=== PATIENT | male | born 1955 | race Caucasian/White ===

== ENCOUNTER → 2021-10-10 10:49 | Outpatient (BNVA) | payer MEDICARE, SELFPAY | PROVIDERS: PCP Nurse Practitioner Family; Visit Provider Nurse Practitioner Family | DX: E03.9 Hypothyroidism, unspecified (principal); E11.9 Type 2 diabetes mellitus without complications; E78.5 Hyperlipidemia, unspecified; I10 Essential (primary) hypertension | CPT/HCPCS: 80053; 80061; 83036; 84443 ==

== ENCOUNTER → 2022-03-20 08:18 | Outpatient (BNVA) | payer MEDICARE, MEDICAID, SELFPAY | PROVIDERS: PCP Nurse Practitioner Family; Visit Provider Nurse Practitioner Family | DX: I10 Essential (primary) hypertension (principal); E78.5 Hyperlipidemia, unspecified; E11.9 Type 2 diabetes mellitus without complications; E03.9 Hypothyroidism, unspecified | CPT/HCPCS: 80053; 80061; 83036; 83721; 84443 ==

== ENCOUNTER → 2022-06-26 09:26 | Outpatient (BNVA) | payer MEDICARE, SELFPAY | PROVIDERS: PCP Nurse Practitioner Family; Visit Provider Nurse Practitioner Family | DX: I10 Essential (primary) hypertension (principal); Z79.899 Other long term (current) drug therapy; E78.5 Hyperlipidemia, unspecified | CPT/HCPCS: 82977; 83615; 84450; 84460; 84478 ==

== ENCOUNTER → 2023-01-01 11:26 | Outpatient (BNVA) | payer MEDICARE, MEDICAID, SELFPAY | PROVIDERS: PCP Nurse Practitioner Family; Visit Provider Nurse Practitioner Family | DX: I10 Essential (primary) hypertension (principal); E11.9 Type 2 diabetes mellitus without complications; R63.5 Abnormal weight gain | CPT/HCPCS: 80053; 80061; 83036; 83880; 84443 ==

== ENCOUNTER → 2023-05-08 10:29 | Outpatient (BNVA) | payer MEDICARE, MEDICAID, SELFPAY | PROVIDERS: PCP Nurse Practitioner Family; Visit Provider Nurse Practitioner Family | DX: I10 Essential (primary) hypertension (principal); E78.5 Hyperlipidemia, unspecified; E03.9 Hypothyroidism, unspecified; E11.9 Type 2 diabetes mellitus without complications; J44.9 Chronic obstructive pulmonary disease, unspecified | CPT/HCPCS: 80053; 80061; 83036; 84443 ==

== ENCOUNTER → 2023-09-25 09:06 | Outpatient (BNVA) | payer MEDICARE, MEDICAID, SELFPAY | PROVIDERS: PCP Nurse Practitioner Family; Visit Provider Nurse Practitioner Family | DX: E03.9 Hypothyroidism, unspecified (principal); I10 Essential (primary) hypertension; E11.9 Type 2 diabetes mellitus without complications | CPT/HCPCS: 80053; 80061; 83036; 84443 ==

== ENCOUNTER → 2024-03-02 11:19 | Outpatient (BNVA) | payer MEDICARE, MEDICAID, SELFPAY | PROVIDERS: PCP Nurse Practitioner Family; Visit Provider Nurse Practitioner Family | DX: I10 Essential (primary) hypertension (principal); Z79.4 Long term (current) use of insulin; E11.9 Type 2 diabetes mellitus without complications | CPT/HCPCS: 80053; 80061; 83036; 84443 ==

== ENCOUNTER → 2024-07-27 11:18 | Outpatient (BNVA) | payer MEDICARE, MEDICAID, SELFPAY | PROVIDERS: PCP Nurse Practitioner Family; Visit Provider Nurse Practitioner Family | DX: E11.9 Type 2 diabetes mellitus without complications (principal); Z79.4 Long term (current) use of insulin | CPT/HCPCS: 80053; 80061; 83036; 85025 ==

== ENCOUNTER → 2024-10-01 09:51 | Outpatient (BNVA) | payer MEDICARE, MEDICAID, SELFPAY | PROVIDERS: PCP Nurse Practitioner Family; Visit Provider Nurse Practitioner Family | DX: E03.9 Hypothyroidism, unspecified (principal); Z79.899 Other long term (current) drug therapy | CPT/HCPCS: 80053; 80061; 84443 ==

== ENCOUNTER → 2024-10-13 10:01 | Outpatient (BNVA) | payer MEDICARE, MEDICAID, SELFPAY | PROVIDERS: PCP Nurse Practitioner Family; Visit Provider Nurse Practitioner Family | DX: E11.9 Type 2 diabetes mellitus without complications (principal) | CPT/HCPCS: 83036 ==

== ENCOUNTER → 2024-11-30 09:29 | Outpatient (BNVA) | payer MEDICARE, MEDICAID, SELFPAY | PROVIDERS: PCP Nurse Practitioner Family; Visit Provider Nurse Practitioner Family | DX: Z79.899 Other long term (current) drug therapy (principal) | CPT/HCPCS: 80053 ==

== ENCOUNTER → 2024-12-31 07:57 | Outpatient (BNVA) | payer MEDICARE, MEDICAID, SELFPAY | PROVIDERS: PCP Nurse Practitioner Family; Visit Provider Nurse Practitioner Family | DX: I10 Essential (primary) hypertension (principal) | CPT/HCPCS: 80053 ==

== ENCOUNTER → 2025-03-18 08:02 | Outpatient (BNVA) | payer MEDICARE, MEDICAID, SELFPAY | PROVIDERS: PCP Nurse Practitioner Family; Visit Provider Nurse Practitioner Family | DX: N28.9 Disorder of kidney and ureter, unspecified (principal) | CPT/HCPCS: 80053 ==

== ENCOUNTER → 2025-03-23 09:14 | Outpatient (BNVA) | payer MEDICARE, MEDICAID, SELFPAY | PROVIDERS: PCP Nurse Practitioner Family; Visit Provider Nurse Practitioner Family | DX: Z79.899 Other long term (current) drug therapy (principal) | CPT/HCPCS: 83036 ==

== ENCOUNTER 2025-05-16 01:17 | Inpatient (IN) | payer MEDICARE, MEDICAID, SELFPAY ==
--- OUTSIDE RECORDS SUMMARY | 2025-05-15 01:12 | XMS_ITS | Encounter Summary ---
Author Organization [employer] Address [address] [place] [address] Care Team Providers Care Medical Insurance Claims Specialist Name Role Phone Unavailable Primary Care Provider Unavailabl e Reason for Referral * Respiratory (Routine) - Pending Review Specialty Diagnoses / Procedures Referred By Trey t Referred To Contact Diagnoses Chronic obstructive pulmonary disease with acute exacerbation (CMS/HCC) Procedures PULSE OXIMETRY, WITH EXERCISE UT PULMONARY STRESS TESTING Lamar Israel MD [address] [place] [phone] Phone: tel: fax: Referral ID Status Reason Start Date Expiration Date V isits Requested Visits Authorized [id number] Pending Review 05/15/2025 06/15/2026 1 1 Reason for Visit * Reason Comments Shortness of Breath Patient has history of COPD. States he has had 3 episodes this evening lasting a minute or two of feeling like he can't breath. When he has an episode, he loses control of his bladder and urinates on himself. Patient states he can usually feel it coming on and uses his inhaler. Patient also states he loses his motor skills but is able to safely get to the ground. Encounter Details Date Type Department Care Team (Late st Contact Info) Description 05/15/2025 1:12 AM CDT - 05/15/2025 9:23 AM CDT Emergency [facility] Emergency Medicine [address] [id number] Killian Cabezas MD [address] [place] [address] [place] [phone] Lamar Israel MD [address] [phone] Chronic obstructive pulmonary disease with acute exacerbation (CMS/HCC) (Primary Dx); Hyperkalemia; COLLEEN (acute kidney injury) Discharge Disposition: Home or Self Care Social History Tobacco Use Types Packs/Day Years Used Date Smoking Tobacco: Every Day Cigarettes 1 50 Smokeless Tobacco: Never Alcohol Use Standard Drinks/Week Comments No 0 (1 standard drink = 0.6 oz pur e alcohol) Food Insecurity Answer Date Recorded Do you find you are eating l ess than you should because you can t pay for food? No 05/15/2025 Transportation Needs Answer Date Record ed Have you gone without health care because you didn t have a way to get there? Or worry about transportation for future doctor visits, corn picker medication, etc.? No 2024 Housing Stability Answer Date Recorded Do you worry you won t have a steady place to sleep or struggle to pay rent or mortgage? No 05/15/2025 Utility Needs Answer Date Recorded Do you have difficulty payin g for utility costs (electric, water or gas bills)? No 05/15/2025 Medication Needs Answer Date Recorded Have you skipped taking medi cation due to cost or worry you can t afford new medications? No 05/15/2025 Feeling Safe Answer Date Recorded Are you in a relationship wi th someone who hurts you emotionally and/or physically? No 05/15/2025 Sex and Gender Information Value Date Recorded Sex Assigned at Not on file Legal Sex Male 1:41 AM [employer] Gender Identity Not on file Sexual Orientation Not on file documented as of this encounter Last Filed Vital Signs Vital Sign Reading Time Taken Comments Blood Pressure 112/65 05/15/2025 9:15 AM CDT Pulse 84 05/15/2025 9:15 AM CDT Temperature 36.6 C (97.9 F) 05/15/2025 1:24 AM CDT Respiratory Rate 20 05/15/2025 9:15 AM CDT Oxygen Saturation 99% 05/15/2025 9:15 AM CDT Inhaled Oxygen Concentration - - Weight 74.8 kg (165 lb) 05/15/2025 1:24 AM CDT Height 167.6 cm (5' 6 ) 05/15/2025 1:24 AM CDT Body Mass Index 26.63 05/15/2025 1:24 AM CDT documented in this encounter Discharge Instructions * Discharge Instructions* Lamar Israel MD - 05/15/2025 2:23 AM CDT Please hold off on taking the Lisinopril for the next 2-3 days, as long as your blood pressure is staying within normal limits. Please see your primary doctor to determine if you need to switch lisinopril to an alternative or continue taking the medication and monitor closely. Please also discuss about rechecking your potassium and kidney function. Your kidney function is showing that you might have mild dehydration and you just need to drink a little bit more fluids, however try to for now avoid anything with substantial amount of potassium init, and water would probably be the best. There is also a prescription of prednisone taper to make sure that your COPD is having improvement. The prescription for nebulizer machine has been provided and the capsules for the treatment have also been ordered to the pharmacy as well. If you notice that there is any worsening in your symptoms, please return to the emergency department right away. The order for the walk test to make sure that your oxygen does not decrease significantly, and you do not require supplemental oxygen, they will reach out to you to schedule an appointment. The walk test is very fast approximately 8 minutes and afterward the result will be sent to your primary doctor. * Attachments The following attachments cannot be sent through Care Everywhere. * COPD (Guamanian) * Prednisone (Guamanian) * Albuterol and Ipratropium Oral Inhalation (Guamanian) * COPD Exacerbation Plan ([place]ian) * Hyperkalemia ([place]amanian) * Nebulizers: General Info (Guamanian) * Acute Kidney Injury ([place]amanian) documented in this encounter Medications at Time of Discharge predniSONE (DELTASONE) 5 mg tablet 50 mg x 2 days 40 mg x 2 days 30 mg x 2 days 20 mg x 2 days 10 mg x 2 days 5 mg x 2 days 62 Tablet 05/15/2025 ipratropium-albute roL (DUONEB) 0.5 mg-3 mg(2.5 mg base)/3 mL Solution for Nebulization Take 3 mL by inhalation every 6 hours as needed for Shortness of Breath. 120 Each 05/15/2025 nebulizer Length of need 99 months Nebulizer with compressor, Kit: Permanent Nebulizer Kit, 1 per 6 months, filters , areosol mask: Yes. Name of Medication: Duoneb ICD10: J44.9 1 Each 05/15/2025 albuterol sulfate HFA 90 mcg/actuation aerosol inhaler Take 2 Puffs by inhalation every 6 hours as needed for Wheezing or Shortness of Breath. 8.5 Gram 11/11/2024 atenoloL (TENORMIN) 25 mg tablet Take 25 mg by mouth daily. aspirin (ECOTRIN EC) 81 mg Tablet, Delayed Release (E.C.) Take 81 mg by mouth daily. atenoloL 50 mg tablet Take 50 mg by mouth daily. 25 in morning and 50 at night levothyroxine sodium (LEVOTHYROXINE ORAL) Take by mouth. metFORMIN 500 mg tablet Take 500 mg by mouth 2 times daily with meals. rosuvastatin 20 mg tablet Take 20 mg by mouth daily. lisinopriL 20 mg tablet Take 20 mg by mouth daily. omega-3 fatty acids-fish oil 300 mg-1,000 mg capsule Take by mouth daily. vit A/C/E ac/ZnOx/cupric oxide (EYE VITAMIN AND MINERALS ORAL) Take by mouth. CYANOCOBALAMIN, VITAMIN B-12, ORAL Take by mouth. documented as of this encounter ED Notes * Sienna Bowen RN - 05/15/2025 8:53 AM CDT Walk test preformed on patient. Patient oxygen saturation stayed above 98% during testing. Patient ambulated with stand by assistance. * Maggie Sandoval RCP - 05/15/2025 6:24 AM CDT SVN: Duoneb 0.5-2.5mg/3ml given and tolerated well. * Maggie Sandoval RCP - 05/15/2025 2:46 AM CDT EKG completed. Results given to Dr. Cabezas and scanned into Epic. * Tiffani De La Rosa RN - 05/15/2025 1:30 AM CDT Martell Rehman is a 69 y.o. male who arrives to the Emergency Department by private car. 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 Chief Complaint Patient presents with Shortness of Breath Patient has history of COPD. States he has had 3 episodes this evening lasting a minute or two of feeling like he can't breath. When he has an episode, he loses control of his bladder and urinates onhimself. Patient states he can usually feel it coming on and uses his inhaler. Patient also states he loses his motor skills but is able to safely get to the ground. Pain is 0/10. VSS, aaox4, OTTO, behavior appropriate to circumstance, no acute distress at this time. Airway patent, self-maintained with even, non-labored respirations. Perfusion within normal limitsfor age. Skin color normal for ethnicity, warm, dry and intact. Instructed patient to remove clothing per policy, ensured patient privacy, gown provided to patient. ID band present. Patient in bed in low position with wheels locked. Patient informed of plan of care. Patient verbalized understanding and in agreement with plan of care, all questions answered. Comfort measures offered. Monitors on and audible. Patient placed on continuous surveillance system monitor, pulse ox and blood pressure monitoring. Call light at bedside. Patient encouraged to call with needs. Willcontinue to monitor. Weapons assessment performed. Education provided regarding facility weapon storage and securement policy. Martell Rehman denied possession of any weapons or firearms at this time * Day, Lamar Tracy MD - 05/15/2025 1:10 AM CDT HISTORY OF PRESENT ILLNESS Martell Rehman, a 69 y.o. male presents to the ED with a Chief Complaint of Shortness of Breath Subjective This patient is a 69-year-old white male who presents to the emergency department with shortness ofbreath. Patient states he has chronic shortness of breath but had a worse episode tonight starting around 9 PM. He does have a history of COPD. States he did use an albuterol metered-dose inhaler andthe symptoms have resolved. States during the episode his muscles became weak and he was incontinent of urine. Patient denies chest pain. No cough. No fever. REVIEW OF SYSTEMS Review of Systems Constitutional: Negative for appetite change, chills, diaphoresis, fatigue and fever. HENT: Negative for congestion, ear pain, postnasal drip, rhinorrhea, sinus pressure and sore throat. Eyes: Negative for pain and visual disturbance. Respiratory: Positive for shortness of breath and wheezing. Negative for cough and chest tightness. Cardiovascular: Negative for chest pain, palpitations and leg swelling. Gastrointestinal: Negative for abdominal distention, abdominal pain, blood in stool, constipation, diarrhea, nausea and vomiting. Genitourinary: Negative for decreased urine volume, difficulty urinating, dysuria, flank pain, frequency, hematuria, testicular pain and urgency. Musculoskeletal: Negative for arthralgias, back pain, joint swelling, myalgias, neck pain and neck stiffness. Skin: Negative for rash. Neurological: Negative for dizziness, seizures, syncope, speech difficulty, weakness, light-headedness, numbness and headaches. Hematological: Negative for adenopathy. Psychiatric/Behavioral: Negative for behavioral problems, confusion, decreased concentration, dysphoric mood, self-injury, sleep disturbance and suicidal ideas. The patient is not nervous/anxious. All other systems reviewed and are negative. PAST MEDICAL HISTORY REVIEWED MEDICAL: Patient has a past medical history of Diabetes mellitus, HTN (hypertension), Hyperlipidemia, Myocardial infarct (2004), and Thyroid disease. SURGICAL: Patient has a past surgical history that includes heart catheterization; ptca; and cataract removal(Bilateral). FAMILY: Patient's family history includes Breast Cancer in his mother; Healthy in his brother; Heart Disease in his father and sister; High Cholesterol in his father; Kidney Disease in his sister; Stroke in his father. SOCIAL: reports that he has been smoking cigarettes. He has a 50 pack-year smoking history. He has never used smokeless tobacco. He reports that he does not drink alcohol and does not use drugs. No history on file. Social History Other Topics Concern Not on file ALLERGIES Penicillin g HOME MEDICATIONS Discharge Medication List as of 05/15/2025 9:22 AM START taking these medications Details predniSONE (DELTASONE) 5 mg tablet 50 mg x 2 days 40 mg x 2 days 30 mg x 2 days 20 mg x 2 days 10 mg x 2 days 5 mg x 2 days, Disp-62 Tablet, R-0, ALEJANDRO ipratropium-albuteroL (DUONEB) 0.5 mg-3 mg(2.5 mg base)/3 mL Solution for Nebulization Take 3 mL byinhalation every 6 hours as needed for Shortness of Breath., Disp-120 Each, R-0 CONTINUE these medications which have CHANGED Details nebulizer Length of need 99 months Nebulizer with compressor, Kit: Permanent Nebulizer Kit, 1 per 6 months, filters , areosol mask: Yes. Name of Medication: Duoneb ICD10: J44.9, Disp-1 Each, R-0 CONTINUE these medications which have NOT CHANGED Details albuterol sulfate HFA 90 mcg/actuation aerosol inhaler Take 2 Puffs by inhalation every 6 hours as needed for Wheezing or Shortness of Breath., Disp- 8.5 Gram, R-0 !! atenoloL (TENORMIN) 25 mg tablet Take 25 mg by mouth daily. aspirin (ECOTRIN EC) 81 mg Tablet, Delayed Release (E.C.) Take 81 mg by mouth daily. !! atenoloL 50 mg tablet Take 50 mg by mouth daily. 25 in morning and 50 at night levothyroxine sodium (LEVOTHYROXINE ORAL) Take by mouth. metFORMIN 500 mg tablet Take 500 mg by mouth 2 times daily with meals. rosuvastatin 20 mg tablet Take 20 mg by mouth daily. lisinopriL 20 mg tablet Take 20 mg by mouth daily.Paused since today. Resumes on Sat05/18/2025. omega-3 fatty acids-fish oil 300 mg-1,000 mg capsule Take by mouth daily. vit A/C/E ac/ZnOx/cupric oxide (EYE VITAMIN AND MINERALS ORAL) Take by mouth. CYANOCOBALAMIN, VITAMIN B-12, ORAL Take by mouth. !! - Potential duplicate medications found. Please discuss with provider. Objective PHYSICAL EXAM INITIAL VS BP: 109/54 (05/15/25123), Heart Rate: 77 bpm (05/15/25123), Resp: 19 (05/15/25123), Pulse: 79(05/15/25 0200), Temp: 97.9 ??F (36.6 ??C) (05/15/25123), Temp src: Oral (05/15/25123), SpO2: 100 % (05/15/25123), Height: 5' 6 (167.6 cm) (05/15/25123), Weight: 74.8 kg (165 lb) (05/15/25123), BMI (Calculated): (!) 26.63 (05/15/25123) No LMP for male patient. Physical Exam Vitals and nursing note reviewed. Constitutional: General: He is not in acute distress. Appearance: Normal appearance. He is not ill-appearing. HENT: Head: Normocephalic and atraumatic. Eyes: Conjunctiva/sclera: Conjunctivae normal. Pupils: Pupils are equal, round, and reactive to light. Cardiovascular: Rate and Rhythm: Normal rate and regular rhythm. Pulmonary: Effort: Pulmonary effort is normal. No respiratory distress. Breath sounds: Normal breath sounds. Abdominal: General: Abdomen is flat. Bowel sounds are normal. Palpations: Abdomen is soft. Tenderness: There is no abdominal tenderness. Musculoskeletal: General: No tenderness. Normal range of motion. Skin: General: Skin is warm and dry. Neurological: General: No focal deficit present. Mental Status: He is alert and oriented to person, place, and time. Psychiatric: Mood and Affect: Mood normal. Behavior: Behavior normal. DIAGNOSTICS LAB: CBC WITH DIFFERENTIAL - Abnormal Result Value WBC 10.3 (*) RBC 4.72 HEMOGLOBIN 13.9 HEMATOCRIT 41.8 MCV 88.6 MCH 29.4 MCHC 33.3 RDW 14.7 (*) RDW-STDEV 47.8 PLATELETS 184 MPV 8.6 (*) NEUTROPHILS 74 (*) LYMPHOCYTES 17 (*) MONOCYTES 7 EOSINOPHILS 2 BASOPHILS 0 IMMATURE GRANULOCYTES 1 NEUTROPHIL ABSOLUTE 7.62 (*) LYMPHOCYTE ABSOLUTE 1.69 MONOCYTE ABSOLUTE 0.72 EOSINOPHIL ABSOLUTE 0.17 BASOPHILS ABSOLUTE 0.01 IMMATURE GRANULOCYTES ABSOLUTE 0.05 BASIC METABOLIC PANEL - Abnormal SODIUM 132 (*) POTASSIUM 6.1 (*) CHLORIDE 96 (*) CO2 22 CALCIUM 9.6 BUN 27 (*) CREATININE 1.59 (*) GLUCOSE 135 (*) GFR 46 ANION GAP 14 POTASSIUM LEVEL - Abnormal POTASSIUM 6.0 (*) BASIC METABOLIC PANEL - Abnormal SODIUM 132 (*) POTASSIUM 4.8 CHLORIDE 99 CO2 18 (*) CALCIUM 9.0 BUN 28 (*) CREATININE 1.31 (*) GLUCOSE 148 (*) GFR 58 ANION GAP 15 POTASSIUM LEVEL - Normal POTASSIUM 5.1 RADIOLOGY: XR CHEST PA OR AP 1 VW Radiologist Impression IMPRESSION: No acute cardiopulmonary abnormality identified. MACRO: None EKG: PROCEDURES Procedures MEDICAL DECISION MAKING AND PLAN OF CARE Medical Decision Making Chest x-ray was normal. CBC normal. BMP revealed a potassium of 6.1, BUN 27 and a creatinine of 1.59. EKG revealed sinus rhythm with normal T waves and a right bundle branch block. Repeated the potassium and it was 6.0. Patient is not on any potassium supplementation. No prior renal insufficiency. He is on lisinopril. Patient was initially given 50 mg of prednisone p.o. for his COPD. For treatment of his hyperkalemia we gave him a 1 L bolus of normal saline, 2 g of calcium gluconate, 1 amp of bicarb and 15 g of Lokelma. Rechecked a potassium 2 hours later and is now 5.1. Patient will need to be observed for some time with repeat potassium before discharge. I would recommend he discontinue the lisinopril. Patient care will be transferred to Dr. Israel at shift change. He is stable. I will also place him on a prednisone burst and taper for his COPD. Assumed care of the patient at 7 AM from the night team. Patient's breathing has improved significantly and there is no more wheezing and he was able to perform a walk test without any desaturation. The saturation remained 98% on room air. The patient was given a taper of prednisone by my colleague earlier. Provided patient with a prescription of nebulizer and DuoNeb. Rechecked BMP showed improvement in the renal function with a GFR of 58 which is close to patient's baseline and potassium of 4.8 which is significant improvement. Advised patient to hold off on lisinopril at least for the next 3 days or so until he is able to see his PCP. Advised to take the lisinopril if the blood pressure starts to climb up. Advised to also avoid anything of significant content of potassium in the meantime. Advised patient to follow-up or return to the ER if there is any worsening in the symptoms. Upon review of history and physical examination, labs and other diagnostic tests, believe that patient is stable for discharge home with self-care and close monitoring of symptoms. Discussed the plan with the patient and the red flag symptoms to return to the emergency department. Explained that follow-up is very important and patient should make an appointment with their primary care doctor within the next 3-5 days. They have voiced understanding and are comfortable with theplan of care. Amount and/or Complexity of Data Reviewed Labs: ordered. Radiology: ordered. ECG/medicine tests: ordered. Risk Prescription drug management. Clinical Scoring & Consults Medications Administered During the ED Stay from 05/15/2025 0110 to 05/15/2025 0951 Date/Time Order Dose Route Action 05/15/2025 0201 CDT predniSONE (DELTASONE) tablet 50 mg 50 mg Oral Given 05/15/2025 0402 CDT sodium chloride 0.9 % bolus solution 1,000 mL 0 mL IV Stopped 05/15/2025 0332 CDT sodium chloride 0.9 % bolus solution 1,000 mL 1,000 mL IV New Bag 05/15/2025 0402 CDT calcium GLUCONATE 2,000 mg in sodium chloride 0.9 % 100 mL IVPB 0 mg IV Stopped 05/15/2025 0332 CDT calcium GLUCONATE 2,000 mg in sodium chloride 0.9 % 100 mL IVPB 2,000 mg IV NewBag 05/15/2025 0328 CDT sodium bicarbonate 8.4% (1 mEq/mL) syringe 50 mEq 50 mEq IV Given 05/15/2025 0340 CDT sodium zirconium cyclosilicate (LOKELMA) oral powder packet 15 Gram 15 Gram Oral Given 05/15/2025 0622 CDT ipratropium-albuteroL (DUONEB) 0.5 mg-3 mg(2.5 mg base)/3 mL inhalation solution 3 mL 3 mL Inhalation Given Discharge Medication List as of 05/15/2025 9:22 AM START taking these medications Details predniSONE (DELTASONE) 5 mg tablet 50 mg x 2 days 40 mg x 2 days 30 mg x 2 days 20 mg x 2 days 10 mg x 2 days 5 mg x 2 days, Disp-62 Tablet, R-0, ALEJANDRO ipratropium-albuteroL (DUONEB) 0.5 mg-3 mg(2.5 mg base)/3 mL Solution for Nebulization Take 3 mL byinhalation every 6 hours as needed for Shortness of Breath., Disp-120 Each, R-0 CONTINUE these medications which have CHANGED Details nebulizer Length of need 99 months Nebulizer with compressor, Kit: Permanent Nebulizer Kit, 1 per 6 months, filters , areosol mask: Yes. Name of Medication: Duoneb ICD10: J44.9, Disp-1 Each, R-0 CONTINUE these medications which have NOT CHANGED Details albuterol sulfate HFA 90 mcg/actuation aerosol inhaler Take 2 Puffs by inhalation every 6 hours as needed for Wheezing or Shortness of Breath., Disp- 8.5 Gram, R-0 !! atenoloL (TENORMIN) 25 mg tablet Take 25 mg by mouth daily. aspirin (ECOTRIN EC) 81 mg Tablet, Delayed Release (E.C.) Take 81 mg by mouth daily. !! atenoloL 50 mg tablet Take 50 mg by mouth daily. 25 in morning and 50 at night levothyroxine sodium (LEVOTHYROXINE ORAL) Take by mouth. metFORMIN 500 mg tablet Take 500 mg by mouth 2 times daily with meals. rosuvastatin 20 mg tablet Take 20 mg by mouth daily. lisinopriL 20 mg tablet Take 20 mg by mouth daily.Paused since today. Resumes on Sat05/18/2025. omega-3 fatty acids-fish oil 300 mg-1,000 mg capsule Take by mouth daily. vit A/C/E ac/ZnOx/cupric oxide (EYE VITAMIN AND MINERALS ORAL) Take by mouth. CYANOCOBALAMIN, VITAMIN B-12, ORAL Take by mouth. !! - Potential duplicate medications found. Please discuss with provider. LAST VS BP: 112/65 (05/15/25 0915), Heart Rate: 84 bpm (05/15/25 0845), Resp: 20 (05/15/25914), Pulse: 84(05/15/25914), Temp: 97.9 ??F (36.6 ??C) (05/15/25123), Temp src: Oral (05/15/25123), SpO2: 99 % (05/15/25914) CLINICAL IMPRESSION Diagnoses Diagnosis Comment Added By Time Added Chronic obstructive pulmonary disease with acute exacerbation (CMS/HCC) [J44.1] Samm Cabezas MD 05/15/2025 2:22 AM Hyperkalemia [E87.5] Killian Cabezas MD 05/15/2025 6:38 AM COLLEEN (acute kidney injury) [N17.9] Lamar Israel MD 05/15/2025 9:19 AM DISPOSITION, EDUCATION AND MEDICATION RECONCILIATION Medications reconciled. See after visit summary for patient education on discharged patients. ED Disposition ED Disposition Discharge Condition Stable User Killian Cabezas MD Date/Time Sat May 15, 2025 2:22 AM Comment -- ATTESTATION STATEMENTS documented in this encounter Plan of Treatment Scheduled Orders Name Type Priority Associated Diagnoses Orde r Schedule PULSE OXIMETRY, WITH EXERCISE PFT Routine Chronic obstructive pulmonary disease with acute exacerbation (CMS/HCC) 1 Occurrences starting 05/15/2025 until 05/15/2026 documented as of this encounter Procedures Procedure Name Priority Date/Time Associated Diagnosis Comments BASIC METABOLIC PANEL Stat 05/15/2025 8:27 AM CDT POTASSIUM LEVEL Stat 05/15/2025 5:43 AM CDT POTASSIUM LEVEL Stat 05/15/2025 2:46 AM CDT CBC WITH DIFFERENTIAL Stat 05/15/2025 2:08 AM CDT BASIC METABOLIC PANEL Stat 05/15/2025 2:08 AM CDT XR CHEST PA OR AP 1 VW Stat 05/15/2025 1:57 AM CDT documented in this encounter Results * (ABNORMAL) BASIC METABOLIC PANEL (05/15/2025 8:27 AM CDT) SODIUM 132(L) 136 - 145 mmol/L 05/15/2025 8:47 AM [facility] POTASSIUM 4.8 3.5 - 5.1 mmol/L 05/15/2025 8:47 AM [facility] CHLORIDE 99 98 - 107 mmol/L 05/15/2025 8:47 AM [facility] CO2 18(L) 22 - 29 mmol/L 05/15/2025 8:47 AM [facility] CALCIUM 9.0 8.8 - 10.2 mg/dL 05/15/2025 8:47 AM [facility] BUN 28(H) 8 - 23 mg/dL 05/15/2025 8:47 AM [facility] CREATININE 1.31(H) 0.67 - 1.17 mg/dL 05/15/2025 8:47 AM [facility] Comment:The GFR result is no t clinically significant on patients <18 or >70 years of age. GLUCOSE 148(H) 74 - 99 mg/dL 05/15/2025 8:47 AM [facility] GFR 58 mL/min/1.7 3 sq meter 05/15/2025 8:47 AM [facility] Comment:eGFR calculated with 2020 CKD-EPI equation. Vegetarian diet, extremely high or low muscle mass, and may affect results. Cystatin C with Glomerular Filtration Rate is a suitable alternative for these patients. ANION GAP 15 5 - 20 mmol/L 05/15/2025 8:47 AM [facility] Blood Venipuncture / Unknown 05/15/2025 8:27 AM CDT 05/15/2025 8:30 AM CDT us Lamar Israel MD CHEMISTRY ORDERABLES Final Resu lt [facility] CLIA # [id number] [address] [place] [id number] * POTASSIUM LEVEL (05/15/2025 5:43 AM CDT) POTASSIUM 5.1 3.5 - 5.1 mmol/L 05/15/2025 6:03 AM CDT [facility] Blood BLOOD SPECIMEN / Unknown Collection / Unknown 05/15/2025 5:43 AM CDT 05/15/2025 5:51 AM CDT Killian Cabezas MD CHEMISTRY ORDERABLES Fin al Result [facility] CLIA # [id number] [address] [place] [id number] * (ABNORMAL) POTASSIUM LEVEL (05/15/2025 2:46 AM CDT) POTASSIUM 6.0(H) 3.5 - 5.1 mmol/L 05/15/2025 2:57 AM CDT [facility] Blood BLOOD SPECIMEN / Unknown Collection / Unknown 05/15/2025 2:46 AM CDT 05/15/2025 2:49 AM CDT Killian Cabezas MD CHEMISTRY ORDERABLES Fin al Result [facility] CLIA # [id number] [address] [place] [address] * (ABNORMAL) BASIC METABOLIC PANEL (05/15/2025 2:08 AM CDT) SODIUM 132(L) 136 - 145 mmol/L 05/15/2025 2:39 AM CDT [facility] POTASSIUM 6.1(HH) 3.5 - 5.1 mmol/L 05/15/2025 2:39 AM CDT [facility] CHLORIDE 96(L) 98 - 107 mmol/L 05/15/2025 2:39 AM CDT [facility] CO2 22 22 - 29 mmol/L 05/15/2025 2:39 AM [facility] CALCIUM 9.6 8.8 - 10.2 mg/dL 05/15/2025 2:39 AM [facility] BUN 27(H) 8 - 23 mg/dL 05/15/2025 2:39 AM [facility] CREATININE 1.59(H) 0.67 - 1.17 mg/dL 05/15/2025 2:39 AM [facility] Comment:The GFR result is no t clinically significant on patients <18 or >70 years of age. GLUCOSE 135(H) 74 - 99 mg/dL 05/15/2025 2:39 AM [facility] GFR 46 mL/min/1.7 3 sq meter 05/15/2025 2:39 AM [facility] Comment:eGFR calculated with 2020 CKD-EPI equation. Vegetarian diet, extremely high or low muscle mass, and may affect results. Cystatin C with Glomerular Filtration Rate is a suitable alternative for these patients. ANION GAP 14 5 - 20 mmol/L 05/15/2025 2:39 AM [facility] Blood BLOOD SPECIMEN / Unknown Collection / Unknown 05/15/2025 2:08 AM CDT 05/15/2025 2:17 AM CDT us Killian Cabezas MD CHEMISTRY ORDERABLES Fin al Result [facility] CLIA # [id number] [address] [place] [address] * (ABNORMAL) CBC WITH DIFFERENTIAL (05/15/2025 2:08 AM CDT) WBC 10.3(H) 4.2 - 9.1 K/uL 05/15/2025 2:19 AM [facility] RBC 4.72 4.63 - 6.08 M/uL 05/15/2025 2:19 AM [facility] HEMOGLOBIN 13.9 13.7 - 17.5 g/dL 05/15/2025 2:19 AM [facility] HEMATOCRIT 41.8 40.1 - 51.0 % 05/15/2025 2:19 AM [facility] MCV 88.6 79.0 - 92.2 fL 05/15/2025 2:19 AM [facility] MCH 29.4 25.7 - 32.2 pg 05/15/2025 2:19 AM [facility] MCHC 33.3 32.3 - 36.5 g/dL 05/15/2025 2:19 AM [facility] RDW 14.7(H) 11.0 - 14.5 % 05/15/2025 2:19 AM [facility] RDW-STDEV 47.8 36.9 - 56.9 fL 05/15/2025 2:19 AM [facility] PLATELETS 184 130 - 400 K/uL 05/15/2025 2:19 AM [facility] MPV 8.6(L) 10.0 - 14.8 fL 05/15/2025 2:19 AM [facility] NEUTROPHILS 74(H) 34 - 68 % 05/15/2025 2:19 AM [facility] LYMPHOCYTES 17(L) 22 - 53 % 05/15/2025 2:19 AM [facility] MONOCYTES 7 5 - 12 % 05/15/2025 2:19 AM [facility] EOSINOPHILS 2 1 - 7 % 05/15/2025 2:19 AM [facility] BASOPHILS 0 0 - 1 % 05/15/2025 2:19 AM [facility] IMMATURE GRANULOCYTES 1 % 05/15/2025 2:19 AM [facility] NEUTROPHIL ABSOLUTE 7.62(H) 1.78 - 5.38 K/uL 05/15/2025 2:19 AM [facility] LYMPHOCYTE ABSOLUTE 1.69 1.20 - 3.40 K/uL 05/15/2025 2:19 AM [facility] MONOCYTE ABSOLUTE 0.72 0.30 - 0.82 K/uL 05/15/2025 2:19 AM CDT [facility] EOSINOPHIL ABSOLUTE 0.17 0.04 - 0.54 K/uL 05/15/2025 2:19 AM CDT [facility] BASOPHILS ABSOLUTE 0.01 0.01 - 0.08 K/uL 05/15/2025 2:19 AM CDT [facility] IMMATURE GRANULOCYTES ABSOLUTE 0.05 K/uL 05/15/2025 2:19 AM CDT [facility] Blood BLOOD SPECIMEN / Unknown Collection / Unknown 05/15/2025 2:08 AM CDT 05/15/2025 2:17 AM CDT us Killian Cabezas MD HEMATOLOGY ORDERABLES Fi nal Result [facility] CLIA # [id number] [address] [place] [address] * XR CHEST PA OR AP 1 VW (05/15/2025 1:57 AM CDT) Anatomical Region Laterality Modality Chest Computed Radiogr aphy 05/15/2025 1:58 AM CDT Impressions 05/15/2025 2:33 AM CDT IMPRESSION: No acute cardiopulmonary abnormality identified. MACRO: None Narrative 05/15/2025 2:33 AM CDT EXAMINATION: XR CHEST PA OR AP 1 VW CLINICAL HISTORY: ASSOCIATED DIAGNOSIS: Shortness of Breath SOB ORDERING PROVIDER: KILLIAN CABEZAS TECHNAUSTIN NOTE: COMPARISON: Chest radiograph 11/10/2024 FINDINGS: Lines, tubes, and devices: None. Lungs and pleura: No focal pulmonary consolidation, effusion or pneumothorax. Chronically coarsened interstitial markings. Cardiomediastinal silhouette: The cardiac silhouette is normal in size. Atherosclerotic calcifications are present in the thoracic aorta. Musculoskeletal: Unremarkable. Procedure Note Adalgisa Servin MD - 05/15/2025 EXAMINATION: XR CHEST PA OR AP 1 VW CLINICAL HISTORY: ASSOCIATED DIAGNOSIS: Shortness of Breath SOB ORDERING PROVIDER: KILLIAN SINDLINGER TECHNOLOGISTS NOTE: COMPARISON: Chest radiograph 11/10/2024 FINDINGS: Lines, tubes, and devices: None. Lungs and pleura: No focal pulmonary consolidation, effusion or pneumothorax. Chronically coarsened interstitial markings. Cardiomediastinal silhouette: The cardiac silhouette is normal in size. Atherosclerotic calcifications are present in the thoracic aorta. Musculoskeletal: Unremarkable. IMPRESSION: No acute cardiopulmonary abnormality identified. MACRO: None Killian Cabezas MD DIAGNOSTIC IMAGING ORDER ALEJANDRO Final Result documented in this encounter Visit Diagnoses Diagnosis Chronic obstructive pulmonary disease with acute exacerbation (CMS/HCC)- Primary Obstructive chronic bronchitis with exacerbation Chronic obstructive pulmonary disease with acute exacerbation (CMS/HCC) Obstructive chronic bronchitis with exacerbation Hyperkalemia Hyperpotassemia COLLEEN (acute kidney injury) Acute kidney failure, unspecified Hyperkalemia Hyperpotassemia COLLEEN (acute kidney injury) Acute kidney failure, unspecified documented in this encounter Administered Medications Inactive Administered Medications - up to 3 most recent administrations Medication Order MAR Action Action Date Dose Rate Site calcium GLUCONATE 2,000 mg in sodium chloride 0.9 % 100 mL IVPB 2,000 mg, IV, ONE TIME ONLY, 1 dose, On 05/15/25 at 0300, Routine New Bag 05/15/2025 3:32 AM CDT 2,000 mg 270 mL/hr ipratropium-albuteroL (DUONEB) 0.5 mg-3 mg(2.5 mg base)/3 mL inhalation solution 3 mL 3 mL, Inhalation, ONE TIME ONLY RESPIRATORY, 1 dose, On 05/15/25 at 0630, Stat Given 05/15/2025 6:22 AM CDT 3 mL predniSONE (DELTASONE) tablet 50 mg 50 mg, Oral, ONE TIME ONLY, 1 dose, On 05/15/25 at 0200, Routine Given 05/15/2025 2:01 AM CDT 50 mg sodium bicarbonate 8.4% (1 mEq/mL) syringe 50 mEq 50 mEq, IV, ONE TIME ONLY, 1 dose, On 05/15/25 at 0300, Stat Given 05/15/2025 3:28 AM CDT 50 mEq sodium chloride 0.9 % bolus solution 1,000 mL 1,000 mL, IV, ONE TIME ONLY, 1 dose, On 05/15/25 at 0300, at 2,000 mL/hr, Administer over 30 Minutes, Routine New Bag 05/15/2025 3:32 AM CDT 1,000 mL 2000 mL/hr sodium zirconium cyclosilicate (LOKELMA) oral powder packet 15 Gram 15 Gram, Oral, ONE TIME ONLY, 1 dose, On 05/15/25 at 0345, Stat Given 05/15/2025 3:40 AM CDT 15 Grams documented in this encounter Active and Recently Administered Medications Times are shown in CDT. Scheduled Medication Order 05/13/2025 05/14/2025 05/15/2025 calcium GLUCONATE 2,000 mg in sodium chloride 0.9 % 100 mL IVPB (COMPLETED) 2,000 mg, IV, ONE TIME ONLY, 1 dose, On 05/15/25 at 0300, Routine 033 (New Bag - Prov ider: Tiffani De La Rosa RN)040 (Stopped - Provider: Tiffani De La Rosa RN) ipratropium-albuteroL (DUONEB) 0.5 mg-3 mg(2.5 mg base)/3 mL inhalation solution 3 mL (COMPLETED) 3 mL, Inhalation, ONE TIME ONLY RESPIRATORY, 1 dose, On 05/15/25 at 0630, Stat 0622 (Given - Provid er: Maggie Sandoval RCP) predniSONE (DELTASONE) tablet 50 mg (COMPLETED) 50 mg, Oral, ONE TIME ONLY, 1 dose, On 05/15/25 at 0200, Routine 0201 (Given - Provid er: Tiffani De La Rosa RN) sodium bicarbonate 8.4% (1 mEq/mL) syringe 50 mEq (COMPLETED) 50 mEq, IV, ONE TIME ONLY, 1 dose, On 05/15/25 at 0300, Stat 0328 (Given - Provid er: Tiffani De La Rosa RN) sodium chloride 0.9 % bolus solution 1,000 mL (COMPLETED) 1,000 mL, IV, ONE TIME ONLY, 1 dose, On 05/15/25 at 0300, at 2,000 mL/hr, Administer over 30 Minutes, Routine 033 (New Bag - Prov ider: Tiffani De La Rosa RN)401 (Stopped - Provider: Tiffani De La Rosa RN) sodium zirconium cyclosilicate (LOKELMA) oral powder packet 15 Gram (COMPLETED) 15 Gram, Oral, ONE TIME ONLY, 1 dose, On 05/15/25 at 0345, Stat 0340 (Given - Provid er: Tiffani De La Rosa RN) documented in this encounter
[2025-05-16] VITALS (16 sets, daily range): BP systolic 86–145; BP diastolic 46–79; PULSE 76–110; RESP 14–20; TEMP 35.7–36.8; O2SAT 95–98; BMI 26.6; BMI 27.3
--- OUTSIDE RECORDS SUMMARY | 2025-05-16 01:34 | XMS_ITS | Encounter Summary ---
Author Organization [facility] Address [address] [place] [address] Care Team Providers Care Flight Engineer Manager Name Role Phone Unavailable Primary Care Provider Unavailabl e Encounter Details Date Type Department Care Team (Late st Contact Info) Description 01/18/[address] 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 Gender Identity Not on file Sexual Orientation Not on file documented as of this encounter Plan of Treatment Not on file documented as of this encounter Procedures Procedure Name Priority Date/Time Associated Diagnosis Comments CBC WITH DIFFERENTIAL Routine 01/18/2014 9:52 PM CDT Dizziness and giddiness [ICD-9-CM] TSH Routine 01/18/2014 9:52 PM CDT Dizziness and giddiness [ICD-9-CM] CK Routine 01/18/2014 9:52 PM CDT Dizziness and giddiness [ICD-9-CM] LIPID PANEL Routine 01/18/2014 9:52 PM CDT Dizziness and giddiness [ICD-9-CM] COMPREHENSIVE METABOLIC PANEL Routine 01/18/2014 9:52 PM CDT Dizziness and giddiness [ICD-9-CM] documented in this encounter Results * (ABNORMAL) LIPID PANEL (01/18/2014 9:52 PM CDT) CHOLESTEROL 130 130 - 200 mg/dL 01/18/2014 10:58 PM CDT [facility] TRIGLYCERIDE 394(H) 30 - 200 mg/dL 01/18/2014 10:58 PM CDT [facility] HDL 21(L) 35 - 80 mg/dL 01/18/2014 10:58 PM CDT [facility] LDL CALCULATED 30 0 - 100 mg/dL 01/18/2014 10:58 PM CDT [facility] Blood 01/18/2014 9:52 PM CDT 01/18/2014 9:52 PM CDT Narrative [facility] - 01/18/2014 10:58 PM CDT TOTAL CHOLESTEROL mg/dL Desirable <200 Borderline high 200-239 High >=240 TRIGLYCERIDES mg/dL Normal <150 Borderline high 150-199 High 200-499 Very high >=500 HDL CHOLESTEROL mg/dL Low <40 Normal 40-60 Desirable >60 LDL CHOLESTEROL mg/dL Optimal <100 Low risk 100-129 Borderline high 130-159 High 160-189 Very high >=190 Based on AHA/NCEP Guidelines Elver Hanson EQUIPMENT APPLICATION SPECIALIST CHEMISTRY ORDERABLES Final Resu lt Performing Organization Address City/[facility]/ZIP Co de Phone Number [facility] CLIA # [id number] [address] [place] [address] * CK (01/18/2014 9:52 PM CDT) Pathologist [facility] CK 113 26 - 308 U/L 01/18/2014 10:58 PM CDT [facility] Blood 01/18/2014 9:52 PM CDT 01/18/2014 9:52 PM CDT [facility] EQUIPMENT APPLICATION SPECIALIST CHEMISTRY ORDERABLES Final Resu lt Performing Organization Address City/[facility]/ZIP Co de Phone Number [facility] [employer] [facility] CLIA # [id number] [address] [address] * TSH (01/18/2014 9:52 PM CDT) TSH 3.18 0.30 - 4.80 uIU/mL 01/18/2014 10:58 PM CDT [facility] [place] Blood 01/18/2014 9:52 PM CDT 01/18/2014 9:52 PM CDT Elver Hanson NP CHEMISTRY ORDERABLES Final Resu lt [facility] [place] CLIA # [id number] [address] [place] [address] * (ABNORMAL) COMPREHENSIVE METABOLIC PANEL (01/18/2014 9:52 PM CDT) SODIUM 141 136 - 145 mmol/L 01/18/2014 10:58 PM T [facility] [employer] [facility] POTASSIUM 3.5 3.5 - 5.1 mmol/L 01/18/2014 10:58 PM T [facility] [employer] [facility] CHLORIDE 103 98 - 107 mmol/L 01/18/2014 10:58 PM T [facility] CO2 25 21 - 32 mmol/L 01/18/2014 10:58 PM CDT [facility] CALCIUM 9.7 8.5 - 10.1 mg/dL 01/18/2014 10:58 PM T [facility] BUN 12 7 - 18 mg/dL 01/18/2014 10:58 PM T [facility] CREATININE 1.20 0.60 - 1.30 mg/dL 01/18/2014 10:58 PM T [facility] [employer] [facility] GLUCOSE 117(H) 74 - 106 mg/dL 01/18/2014 10:58 PM T [facility] TOTAL PROTEIN 8.9(H) 6.4 - 8.2 g/dL 01/18/2014 10:58 PM T [facility] ALBUMIN 4.0 3.4 - 5.0 g/dL 01/18/2014 10:58 PM CDT [facility] BILIRUBIN TOTAL 0.4 0.2 - 1.0 mg/dL 01/18/2014 10:58 PM CDT [facility] ALKALINE PHOSPHATASE 117 50 - 136 U/L 01/18/2014 10:58 PM CDT [facility] AST 34 15 - 37 U/L 01/18/2014 10:58 PM CDT [facility] ALT 39 30 - 65 U/L 01/18/2014 10:58 PM CDT [facility] GFR >60 >=60 mL/min/1.7 3 sq meter 01/18/2014 10:58 PM CDT [facility] Comment: eGFR has not been validated for use in the elderly (> 70 years of age), women, patients with serious co-morbid conditions, or persons with extremes of body size or muscle mass and should also be interpreted with caution in patients with acute kidney failure, dialysis dependent patients, patients reporting exceptional dietary intake (e.g. vegetarian diet, high protein diets, creatine supplementation), and patients with severe liver disease. Based on National Kidney Disease Education Program If patient is , please refer to the GFR result. GFR, >60 >=60 mL/min/1.7 3 sq meter 01/18/2014 10:58 PM CDT [facility] Blood 01/18/2014 9:52 PM CDT 01/18/2014 9:52 PM CDT Elver Hanson NP CHEMISTRY ORDERABLES Final Resu lt [facility] CLIA # [id number] [address] [place] [address] * (ABNORMAL) CBC WITH DIFFERENTIAL (01/18/2014 9:52 PM CDT) WBC 9.7(H) 4.2 - 9.1 K/uL 01/18/2014 10:34 PM CDT [facility] RBC 4.91 4.63 - 6.08 M/uL 01/18/2014 10:34 PM CDT [facility] HEMOGLOBIN 15.8 13.7 - 17.5 g/dL 01/18/2014 10:34 PM CDT [facility] [place] HEMATOCRIT 45.5 40.1 - 51.0 % 01/18/2014 10:34 PM CDT [facility] [place] MCV 92.7(H) 79.0 - 92.2 fL 01/18/2014 10:34 PM CDT [facility] [place] MCH 32.2 25.7 - 32.2 pg 01/18/2014 10:34 PM CDT [facility] [place] MCHC 34.7 32.3 - 36.5 g/dL 01/18/2014 10:34 PM CDT [facility] [place] RDW 13.8 11.0 - 14.5 % 01/18/2014 10:34 PM CDT [facility] [place] RDW-STDEV 45.1 36.9 - 56.9 fL 01/18/2014 10:34 PM CDT [facility] [place] PLATELETS 218 130 - 400 K/uL 01/18/2014 10:34 PM CDT [facility] [place] MPV 10.2 10.0 - 14.8 fL 01/18/2014 10:34 PM CDT [facility] [place] NEUTROPHILS 63 34 - 68 % 01/18/2014 10:34 PM CDT [facility] [place] LYMPHOCYTES 28 22 - 53 % 01/18/2014 10:34 PM CDT [facility] [place] MONOCYTES 5 5 - 12 % 01/18/2014 10:34 PM CDT [facility] [place] EOSINOPHILS 4 1 - 7 % 01/18/2014 10:34 PM CDT [facility] [place] BASOPHILS 0 0 - 1 % 01/18/2014 10:34 PM CDT [facility] [place] NEUTROPHIL ABSOLUTE 6.09(H) 1.78 - 5.38 K/uL 01/18/2014 10:34 PM CDT [facility] [place] LYMPHOCYTE ABSOLUTE 2.74 1.20 - 3.40 K/uL 01/18/2014 10:34 PM CDT [facility] [place] MONOCYTE ABSOLUTE 0.47 0.30 - 0.82 K/uL 01/18/2014 10:34 PM CDT [facility] [place] EOSINOPHIL ABSOLUTE 0.36 0.04 - 0.54 K/uL 01/18/2014 10:34 PM CDT [facility] [place] BASOPHILS ABSOLUTE 0.03 0.01 - 0.08 K/uL 01/18/2014 10:34 PM CDT [facility] [place] IMMATURE GRANULOCYTES 0 % 01/18/2014 10:34 PM CDT [facility] [place] IMMATURE GRANULOCYTES ABSOLUTE 0.04 K/uL 01/18/2014 10:34 PM CDT [facility] [place] Blood 01/18/2014 9:52 PM CDT 01/18/2014 9:52 PM CDT us Elver Hanson NP HEMATOLOGY ORDERABLES Final Res ult [facility] [place] CLIA # [id number] [address] [place] [address] documented in this encounter Visit Diagnoses Diagnosis Dizziness and giddiness documented in this encounter
--- OUTSIDE RECORDS SUMMARY | 2025-05-16 01:34 | XMS_ITS | Encounter Summary ---
Author Organization [facility] Address [address] [place] [address] Care Team Providers Care Brick Layer Name Role Phone Unavailable Primary Care Provider Unavailabl e Encounter Details Date Type Department Care Team (Latest Contact Info) Description 03/11/2007 Outpatient Historical [facility] [place] [address] [place] [address] Cristy Allen, SECONDARY SPECIAL EDUCATION TEACHER [address] [place] [address] Coronary Atherosclerosis of [place] Coronary Artery (Primary Dx); Old Myocardial Infarct; Other and Unspecified Hyperlipidemia Social History Tobacco Use Types Packs/Day Years Used Date Smoking Tobacco: Never Assessed Sex and Gender Information Value Date Recorded Sex Assigned at Not on file 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
--- OUTSIDE RECORDS SUMMARY | 2025-05-16 01:34 | XMS_ITS | Encounter Summary ---
Author Organization [employer] [facility] Address [address] [place] [address] Care Team Providers Care Patternmaker Pressure Cast Name Role Phone Unavailable Primary Care Provider Unavailabl e Encounter Details Date Type Department Care Team (Late st Contact Info) Description 05/23/2015 Lab Requisition [facility] Laboratory Services [place] [address] [place] [id number] Alex Rubio, DO NO ADDRESS ON FILE Sick Social History Tobacco Use Types Packs/Day Years Used Date Smoking Tobacco: Every Day Cigarettes 1 37 Smokeless Tobacco: Never Alcohol Use Standard Drinks/Week Comments No 0 (1 standard drink = 0.6 oz pur e alcohol) Sex and Gender Information Value Date Recorded Sex Assigned at Not on file 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 Gender Identity Not on file Sexual Orientation Not on file documented as of this encounter Plan of Treatment Not on file documented as of this encounter Procedures Procedure Name Priority Date/Time Associated Diagnosis Comments HEMOGLOBIN A1C Routine 05/23/2015 9:00 PM CDT Sick [ICD-10-CM] LIPID PANEL Routine 05/23/2015 9:00 PM CDT Sick [ICD-10-CM] COMPREHENSIVE METABOLIC PANEL Routine 05/23/2015 9:00 PM CDT Sick [ICD-10-CM] documented in this encounter Results * (ABNORMAL) HEMOGLOBIN A1C (05/23/2015 9:00 PM CDT) HEMOGLOBIN A1C 6.1(H) 4.8 - 5.9 % 05/23/2015 10:42 PM CDT [facility] LABORATORY SERVICES [facility] EST. AVG GLUCOSE, A1C 128 mg/dL 05/23/2015 10:42 PM CDT [employer] [facility] Blood 05/23/2015 9:00 PM CDT 05/23/2015 9:45 PM CDT Alex Rubio DO CHEMISTRY ORDERABLES Final Resu lt [facility] [employer] [facility] CLIA # [id number] [address] [address] * (ABNORMAL) LIPID PANEL (05/23/2015 9:00 PM CDT) [facility] CHOLESTEROL 100 <200 mg/dL 05/23/2015 10:42 PM CDT [facility] [employer] [facility] TRIGLYCERIDE 275(H) <150 mg/dL 05/23/2015 10:42 PM CDT [facility] [employer] [facility] HDL 25(L) 40 - 59 mg/dL 05/23/2015 10:42 PM CDT [facility] [employer] [facility] LDL CALCULATED 20 <100 mg/dL 05/23/2015 10:42 PM CDT [facility] [employer] [facility] NON-HDL CHOLESTEROL 75 <130 mg/dL 05/23/2015 10:42 PM CDT [facility] [employer] [facility] Blood 05/23/2015 9:00 PM CDT 05/23/2015 9:45 PM CDT Narrative [facility] [employer] - [facility] - 05/23/2015 10:42 PM CDT TOTAL CHOLESTEROL mg/dL Desirable <200 Borderline high 200-239 High >=240 TRIGLYCERIDES mg/dL Normal <150 Borderline high 150-199 High 200-499 Very high >=500 HDL CHOLESTEROL mg/dL Low <40 Normal 40-59 Desirable >=60 LDL CHOLESTEROL mg/dL Optimal <100 Low risk 100-129 Borderline high 130-159 High 160-189 Very high >=190 NON HDL CHOLESTEROL mg/dL Optimal <130 Near Optimal 130-159 Borderline High 160-189 High 190-219 Very high >=220 Based on AHA/NCEP Guidelines Alex Rubio DO CHEMISTRY ORDERABLES Final Resu lt [facility] # [id number] [address] [place] [id number] * COMPREHENSIVE METABOLIC PANEL (05/23/2015 9:00 PM CDT) SODIUM 142 136 - 145 mmol/L 05/23/2015 10:42 PM T [facility]ORATORY [facility] POTASSIUM 4.2 3.5 - 5.1 mmol/L 05/23/2015 10:42 PM T [facility] CHLORIDE 104 98 - 107 mmol/L 05/23/2015 10:42 PM T [facility] CO2 23 22 - 29 mmol/L 05/23/2015 10:42 PM T [facility] CALCIUM 9.7 8.8 - 10.2 mg/dL 05/23/2015 10:42 PM [facility]ORATORY [facility] BUN 17 8 - 23 mg/dL 05/23/2015 10:42 PM [facility] CREATININE 0.82 0.67 - 1.17 mg/dL 05/23/2015 10:42 PM [facility] GLUCOSE 106 74 - 106 mg/dL 05/23/2015 10:42 PM [facility] TOTAL PROTEIN 8.4 6.6 - 8.7 g/dL 05/23/2015 10:42 PM [facility]OR[facility]ORY [facility] ALBUMIN 4.8 3.5 - 5.2 g/dL 05/23/2015 10:42 PM [facility]ORATORY [facility] BILIRUBIN TOTAL 0.5 0.0 - 1.2 mg/dL 05/23/2015 10:42 PM [facility] LABORATORY [facility] ALKALINE PHOSPHATASE 79 40 - 129 U/L 05/23/2015 10:42 PM T [facility]ORATORY [facility] AST 26 10 - 50 U/L 05/23/2015 10:42 PM T [facility]ATORY [facility] ALT 22 10 - 50 U/L 05/23/2015 10:42 PM [facility] GFR >60 >=60 mL/min/1.7 3 sq meter 05/23/2015 10:42 PM T [facility]ORATORY [facility] Comment: eGFR has not been validated for [...] GFR, >60 >=60 mL/min/1.7 3 sq meter 05/23/2015 10:42 PM CDT [employer] LABORATORY [employer] [facility] [email or web address] ANION GAP 15 12 - 20 mmol/L 05/23/2015 10:42 PM CDT [employer] [facility] Blood 05/23/2015 9:00 PM CDT 05/23/2015 9:45 PM CDT Alex Rubio DO CHEMISTRY ORDERABLES Final Resu lt [employer] LABORATORY [employer] [facility] CLIA # [id number] [address] [place] [phone] documented in this encounter Visit Diagnoses Diagnosis Sick Other unknown and unspecified cause of morbidity or mortality documented in this encounter
--- OUTSIDE RECORDS SUMMARY | 2025-05-16 01:34 | XMS_ITS | Clinical Summary ---
Author Organization [employer] Address [address] 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 Active rosuvastatin 20 mg tablet Take 20 mg by mouth daily. Active atenoloL 50 mg tablet Take 50 mg by mouth daily. 25 in morning and 50 at night Active lisinopriL 20 mg tablet Take 20 mg by mouth daily. Active levothyroxine sodium (LEVOTHYROXINE ORAL) Take by mouth. Activ e omega-3 fatty acids-fish oil 300 mg-1,000 mg capsule Take by mouth daily. Active vit A/C/E ac/ZnOx/cupric oxide (EYE VITAMIN AND MINERALS ORAL) Take by mouth. Active CYANOCOBALAMIN, VITAMIN B-12, ORAL Take by mouth. Activ e atenoloL (TENORMIN) 25 mg tablet Take 25 mg by mouth daily. Active aspirin (ECOTRIN EC) 81 mg Tablet, Delayed Release (E.C.) Take 81 mg by mouth daily. Active albuterol sulfate HFA 90 mcg/actuation aerosol inhaler Take 2 Puffs by inhalation every 6 hours as needed for Wheezing or Shortness of Breath. 8.5 Gram 11/12/19 25 Active predniSONE (DELTASONE) 5 mg tablet 50 mg x 2 days 40 mg x 2 days 30 mg x 2 days 20 mg x 2 days 10 mg x 2 days 5 mg x 2 days 62 Tablet 05/15/20 25 Active ipratropium-albu teroL (DUONEB) 0.5 mg-3 mg(2.5 mg base)/3 mL Solution for Nebulization Take 3 mL by inhalation every 6 hours as needed for Shortness of Breath. 120 Each 05/15/20 25 025 Active nebulizer Length of need 99 months Nebulizer with compressor, Kit: Permanent Nebulizer Kit, 1 per 6 months, filters , areosol mask: Yes. Name of Medication: Duoneb ICD10: J44.9 1 Each 05/15/20 25 Active nebulizer ICD 10: J44.9 Length of need 99 months Nebulizer with compressor, Kit: Disposable Nebulizer Kit, 2 per month, filters , areosol mask: No. Name of Medication DuoNeb 1 Each 08/15/19 23 025 Discontinu ed(Alterna te therapy prescribed ) Active Problems Problem Noted Date Diagnosed Date Chronic obstructive pulmonar y disease with acute exacerbation 05/15/2025 Hyperkalemia 05/15/2025 COLLEEN (acute kidney injury) 05/15/2025 CAD (coronary artery disease) 07/03/2012 Dyslipidemia 07/03/2012 Old myocardial infarction 07/03/2012 Tobacco use disorder 07/03/2012 Encounters Date Type Department Care Team Description 05/15/2025 1:12 AM CDT - 05/15/2025 9:23 AM CDT Emergency [facility] Emergency Medicine [address] [facility] [address] [place] [address] Killian Cabezas MD Day, Shamuel M, MD Chronic obstructive pulmonary disease with acute exacerbation (CMS/HCC) (Primary Dx); Hyperkalemia; COLLEEN (acute kidney injury) Discharge Disposition: Home or Self Care 05/15/2025 Travel 04/27/2025 External Device Data ST[employer] ABSTRACTION Provider, Abstract from Last 3 Months Family History Medical History Relation Name Comments Healthy Brother Heart Disease Father High Cholesterol Father Stroke Father Breast Cancer Mother Heart Disease Sister Kidney Disease Sister Relation Name Status Comments Brother Alive Father Alive Mother Alive Sister Alive Social History Tobacco Use Types Packs/Day Years Used Date Smoking Tobacco: Every Day Cigarettes 1 50 Smokeless Tobacco: Never Tobacco Cessation:Ready to Q uit: Not Asked; Counseling Given: Not Answered Alcohol Use Standard Drinks/Week Comments No 0 [...] worry about transportation for future doctor visits, seed 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 Gender Identity Not on file Sexual Orientation Not on file Last Filed Vital Signs Vital Sign Reading [...] Mass Index 26.63 05/15/2025 1:24 AM CDT Plan of Treatment Health Maintenance Due Date Last Done Comments DTAP/TDAP/TD VACCINES (1 - Tdap) 1972 PNEUMOCOCCAL VACCINE 50+ YEARS (1 of 2 - PCV) 11/03/18 73 COLORECTAL SCREENING 1998 Colorectal Cancer Screening 1998 FIT-DNA Q 3 years 1998 FIT/FOBT Q 1 year 1998 Flex Sig/CT Colonography Q 5 years 1998 Lung Cancer Screening 11/04/2003 ZOSTER VACCINE (1 of 2) 11/04/2003 RSV VACCINE (60+ or ) (1 - Risk 60-74 years 1-dose series) 2013 Abdominal Aortic Aneurysm (AAA) Screening 2018 INFLUENZA VACCINE (#1) 2025 Procedures Procedure Name Priority Date/Time Associated Diagnosis Comments BASIC METABOLIC PANEL Stat 05/15/2025 8:27 AM CDT POTASSIUM LEVEL Stat 05/15/2025 5:43 AM CDT POTASSIUM LEVEL Stat 05/15/2025 2:46 AM CDT BASIC METABOLIC PANEL Stat 05/15/2025 2:08 AM CDT CBC WITH DIFFERENTIAL Stat 05/15/2025 2:08 AM CDT XR CHEST PA OR AP 1 VW Stat 05/15/2025 1:57 AM CDT from Last 3 Months Results * (ABNORMAL) BASIC METABOLIC PANEL (05/15/2025 8:27 AM CDT) Only the most recent of2 resultswithin the time period is included. SODIUM 132(L) 136 - 145 mmol/L 05/15/2025 8:47 AM [facility] POTASSIUM 4.8 3.5 - 5.1 mmol/L 05/15/2025 8:47 AM [facility] CHLORIDE 99 98 - 107 mmol/L 05/15/2025 8:47 AM [facility] CO2 18(L) 22 - 29 mmol/L 05/15/2025 8:47 AM [facility] CALCIUM 9.0 8.8 - 10.2 mg/dL 05/15/2025 8:47 AM [facility] BUN 28(H) 8 - 23 mg/dL 05/15/2025 8:47 AM [facility] CREATININE 1.31(H) 0.67 - 1.17 mg/dL 05/15/2025 8:47 AM CDT [facility] Comment:The GFR result is no t clinically significant on patients <18 or >70 years of age. GLUCOSE 148(H) 74 - 99 mg/dL 05/15/2025 8:47 AM CDT [facility] GFR 58 mL/min/1.7 3 sq meter 05/15/2025 8:47 AM CDT [facility] Comment:eGFR calculated with 2020 CKD-EPI equation. Vegetarian diet, extremely high or low muscle mass, and may affect results. Cystatin C with Glomerular Filtration Rate is a suitable alternative for these patients. ANION GAP 15 5 - 20 mmol/L 05/15/2025 8:47 AM CDT [facility] Blood Venipuncture / Unknown 05/15/2025 8:27 AM CDT 05/15/2025 8:30 AM CDT us Lamar Israel MD CHEMISTRY ORDERABLES Final Resu lt Performing Organization Address City/[facility]/ZIP Co de Phone Number [facility] CLIA # [id number] [address] [place] [phone] * POTASSIUM LEVEL (05/15/2025 5:43 AM CDT) Only the most recent of2 resultswithin the time period is included. POTASSIUM 5.1 3.5 - 5.1 mmol/L 05/15/2025 6:03 AM CDT [facility] Blood BLOOD SPECIMEN / Unknown Collection / Unknown 05/15/2025 5:43 AM CDT 05/15/2025 5:51 AM CDT us Killian Cabezas MD CHEMISTRY ORDERABLES Fin al Result Performing Organization Address City/[facility]/ZIP Co de Phone Number [facility] CLIA # [id number] [address] [place] [phone] * (ABNORMAL) CBC WITH DIFFERENTIAL (05/15/2025 2:08 AM CDT) WBC 10.3(H) 4.2 - 9.1 K/uL 05/15/2025 2:19 AM [facility] RBC 4.72 4.63 - 6.08 M/uL 05/15/2025 2:19 AM [facility] HEMOGLOBIN 13.9 13.7 - 17.5 g/dL 05/15/2025 2:19 AM [facility] HEMATOCRIT 41.8 40.1 - 51.0 % 05/15/2025 2:19 AM [facility] MCV 88.6 79.0 - 92.2 fL 05/15/2025 2:19 AM [facility] MCH 29.4 25.7 - 32.2 pg 05/15/2025 2:19 AM [facility] MCHC 33.3 32.3 - 36.5 g/dL 05/15/2025 2:19 AM [facility] RDW 14.7(H) 11.0 - 14.5 % 05/15/2025 2:19 AM [facility] RDW-STDEV 47.8 36.9 - 56.9 fL 05/15/2025 2:19 AM [facility] PLATELETS 184 130 - 400 K/uL 05/15/2025 2:19 AM [facility] MPV 8.6(L) 10.0 - 14.8 fL 05/15/2025 2:19 AM [facility] NEUTROPHILS 74(H) 34 - 68 % 05/15/2025 2:19 AM [facility] LYMPHOCYTES 17(L) 22 - 53 % 05/15/2025 2:19 AM [facility] MONOCYTES 7 5 - 12 % 05/15/2025 2:19 AM [facility] EOSINOPHILS 2 1 - 7 % 05/15/2025 2:19 AM [facility] BASOPHILS 0 0 - 1 % 05/15/2025 2:19 AM [facility] IMMATURE GRANULOCYTES 1 % 05/15/2025 2:19 AM [facility] NEUTROPHIL ABSOLUTE 7.62(H) 1.78 - 5.38 K/uL 05/15/2025 2:19 AM CDT [facility] LYMPHOCYTE ABSOLUTE 1.69 1.20 - 3.40 K/uL 05/15/2025 2:19 AM CDT [facility] MONOCYTE ABSOLUTE 0.72 0.30 - 0.82 K/uL 05/15/2025 2:19 AM CDT [facility] EOSINOPHIL ABSOLUTE 0.17 0.04 - 0.54 K/uL 05/15/2025 2:19 AM CDT [facility] BASOPHILS ABSOLUTE 0.01 0.01 - 0.08 K/uL 05/15/2025 2:19 AM CDT [facility] IMMATURE GRANULOCYTES ABSOLUTE 0.05 K/uL 05/15/2025 2:19 AM CDT [facility] Blood BLOOD SPECIMEN / Unknown Collection / Unknown 05/15/2025 2:08 AM CDT 05/15/2025 2:17 AM CDT us Killian Cabezas MD HEMATOLOGY ORDERABLES Fi nal Result [facility] # [id number] [address] [place] [phone] * XR CHEST PA OR AP 1 VW (05/15/2025 1:57 AM CDT) Anatomical Region Laterality Modality Chest Computed Radiogr aphy 05/15/2025 1:58 AM CDT Impressions 05/15/2025 2:33 AM CDT IMPRESSION: No acute cardiopulmonary abnormality identified. MACRO: None Narrative 05/15/2025 2:33 AM CDT EXAMINATION: XR CHEST PA OR AP 1 VW CLINICAL HISTORY: ASSOCIATED DIAGNOSIS: Shortness of Breath SOB ORDERING PROVIDER: KILLIAN CABEZAS TECHNOLOGISTS NOTE: COMPARISON: Chest radiograph 11/10/2024 FINDINGS: [...] of Breath SOB ORDERING PROVIDER: KILLIAN CABEZAS TECHNOLOGISTS NOTE: COMPARISON: Chest radiograph 11/10/2024 FINDINGS: Lines, tubes, and devices: None. Lungs and pleura: No focal pulmonary consolidation, effusion or pneumothorax. Chronically coarsened interstitial markings. Cardiomediastinal silhouette: The cardiac silhouette is normal in size. Atherosclerotic calcifications are present in the thoracic aorta. Musculoskeletal: Unremarkable. IMPRESSION: No acute cardiopulmonary abnormality identified. MACRO: None Killian Cabezas MD DIAGNOSTIC IMAGING ORDER ALEJANDRO Final Result from Last 3 Months Insurance MEDICAID [place] [facility]
--- OUTSIDE RECORDS SUMMARY | 2025-05-16 01:34 | XMS_ITS | Encounter Summary ---
Author Organization [employer] [facility] Address [address] [place] [address] Care Team Providers Care Family Practice Medical Doctor Name Role Phone Unavailable Primary Care Provider Unavailabl e Encounter Details Date Type Department Care Team (Late st Contact Info) Description 12/07/2004 Inpatient Historical HIS IN BED Osacr Benítez MD [address] [facility] [address] [place] [address] [facility]ENDO FIRST EPISODE [facility]ARE ([facility]) (Primary Dx) Social History Tobacco Use Types Packs/Day Years Used Date Smoking Tobacco: Never Assessed Sex and Gender Information Value Date Recorded Sex Assigned at Not on file 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 Gender Identity Not on file Sexual Orientation Not on file documented as of this encounter Plan of Treatment Not on file documented as of this encounter Procedures Procedure Name Priority Date/Time Associated Diagnosis Comments CK TOTAL, RELATIVE INDEX Routine 12/08/2004 12:33 PM CDT CKMB Routine 12/08/2004 12:33 PM CDT CK Routine 12/08/2004 12:33 PM CDT CK TOTAL, RELATIVE INDEX Routine 12/08/2004 8:13 AM CDT CKMB Routine 12/08/2004 8:13 AM CDT CBC WITH DIFFERENTIAL Routine 12/08/2004 8:13 AM CDT CREATININE Routine 12/08/2004 8:13 AM CDT CK Routine 12/08/2004 8:13 AM CDT CK TOTAL, RELATIVE INDEX Routine 12/07/2004 11:57 PM CDT CKMB Routine 12/07/2004 11:57 PM CDT CK Routine 12/07/2004 11:57 PM CDT CK Routine 12/07/2004 11:57 PM CDT POC ACTIVATED CLOTTING TIME Routine 12/07/2004 7:15 PM CDT CBC WITHOUT DIFFERENTIAL Routine 12/07/2004 5:53 PM CDT CK TOTAL, RELATIVE INDEX Routine 12/07/2004 3:17 PM CDT CARDIAC ENZYMES Routine 12/07/2004 3:17 PM CDT CK Routine 12/07/2004 3:17 PM CDT CARDIAC ENZYMES Routine 12/07/2004 11:20 AM CDT CK TOTAL, RELATIVE INDEX Routine 12/07/2004 11:18 AM CDT CKMB Routine 12/07/2004 11:18 AM CDT CK Routine 12/07/2004 11:18 AM CDT C-REACTIVE PROTEIN Routine 12/07/2004 9: 45 AM CDT PT AND APTT Routine 12/07/2004 9:44 AM CDT CK TOTAL, RELATIVE INDEX Routine 12/07/2004 5:05 AM CDT CARDIAC ENZYMES Routine 12/07/2004 5:05 AM CDT CK Routine 12/07/2004 5:05 AM CDT HEPATIC FUNCTION PANEL Routine 12/07/2004 5:05 AM CDT LIPID PANEL Routine 12/07/2004 5:05 AM CDT documented in this encounter Results * (ABNORMAL) CK TOTAL, RELATIVE INDEX (12/08/2004 12:33 PM CDT) CK-MB CHEMICAL INDEX 5.1(H) 0.0 - 4.5 INTERFACE SYSTEM 12/08/2004 12:3 3 PM CDT Oscar Benítez MD CHEMISTRY ORDERABLES Final Re sult Performing Organization Address [facility] Phone Number INTERFACE SYSTEM Refer to clinic/hospital department * (ABNORMAL) CK (12/08/2004 12:33 PM CDT) CK 172(H) 0 - 155 IU/L INTERFACE SYSTEM 12/08/2004 12:3 3 PM CDT Oscar Benítez MD CHEMISTRY ORDERABLES Final Re sult Performing Organization Address [facility] Phone Number INTERFACE SYSTEM Refer to clinic/hospital department * (ABNORMAL) CKMB (12/08/2004 12:33 PM CDT) CKMB 8.8(H) 0.0 - 5.0 ng/mL INTERFACE SYSTEM Comment: As of 04 at 14:30 [facility] has changed the methodology for CK-MB and with this change the reference range has changed from 0-5.5 ng/ml to 0-5.0 ng/ml 12/08/2004 12:3 3 PM CDT Oscar Benítez MD CHEMISTRY ORDERABLES COM Smaia l Result Performing Organization Address [facility] Co de Phone Number INTERFACE SYSTEM Refer to clinic/hospital department * (ABNORMAL) CK TOTAL, RELATIVE INDEX (12/08/2004 8:13 AM CDT) CK-MB CHEMICAL INDEX 5.7(H) 0.0 - 4.5 INTERFACE SYSTEM 12/08/2004 8:13 AM CDT Oscar Benítez MD CHEMISTRY ORDERABLES Final Re sult Performing Organization Address [facility] Phone Number INTERFACE SYSTEM Refer to clinic/hospital department * (ABNORMAL) CK (12/08/2004 8:13 AM CDT) CK 191(H) 0 - 155 IU/L INTERFACE SYSTEM 12/08/2004 8:13 AM CDT us Oscar Benítez MD CHEMISTRY ORDERABLES Final Re sult Performing Organization Address [facility] Phone Number INTERFACE SYSTEM Refer to clinic/hospital department * (ABNORMAL) CKMB (12/08/2004 8:13 AM CDT) CKMB 10.9(H) 0.0 - 5.0 ng/mL INTERFACE SYSTEM Comment: As of 04 at 14:30 [facility] has changed the methodology for CK-MB and with this change the reference range has changed from 0-5.5 ng/ml to 0-5.0 ng/ml 12/08/2004 8:13 AM CDT Oscar Benítez MD CHEMISTRY ORDERABLES COM Samia l Result Performing Organization Address [facility] Phone Number INTERFACE SYSTEM Refer to clinic/hospital department * CREATININE (12/08/2004 8:13 AM CDT) CREATININE 1.1 0.7 - 1.5 mg/dL INTERFACE SYSTEM 12/08/2004 8:13 AM CDT Oscar Benítez MD CHEMISTRY ORDERABLES Final Re sult Performing Organization Address [facility] Phone Number INTERFACE SYSTEM Refer to clinic/hospital department * CBC WITH DIFFERENTIAL (12/08/2004 8:13 AM CDT) WBC 8.1 4.8 - 10.8 K/ul INTERFACE SYSTEM RBC 4.66 4.60 - 6.20 Mil/ul INTERFACE SYSTEM HEMOGLOBIN 15.0 14.0 - 18.0 g/dL INTERFACE SYSTEM HEMATOCRIT 45.4 41.0 - 53.0 % INTERFACE SYSTEM MCV 97.4 84.0 - 103.0 Fl INTERFACE SYSTEM MCH 32.2 27.0 - 34.0 pg INTERFACE SYSTEM MCHC 33.0 30.0 - 35.0 g/dL INTERFACE SYSTEM RDW 13.1 11.0 - 14.5 percent(in active) INTERFACE SYSTEM PLATELETS 177 140 - 440 K/ul INTERFACE SYSTEM MPV 9.5 8.9 - 12.8 Fl INTERFACE SYSTEM NEUTROPHILS 65.2 42.2 - 75.2 percent(in active) INTERFACE SYSTEM LYMPHOCYTES 24.0 24.0 - 44.0 percent(in active) INTERFACE SYSTEM MONOCYTES 7.8 2.0 - 10.0 percent(in active) INTERFACE SYSTEM EOSINOPHILS 2.8 0.0 - 7.0 % INTERFACE SYSTEM BASOPHILS 0.2 0.0 - 1.0 percent(in active) INTERFACE SYSTEM NEUTROPHIL ABSOLUTE 5.3 2.0 - 8.0 K/uL INTERFACE SYSTEM LYMPHOCYTE ABSOLUTE 1.9 1.2 - 4.0 K/ul INTERFACE SYSTEM MONOCYTE ABSOLUTE 0.6 0.1 - 0.6 K/ul INTERFACE SYSTEM EOSINOPHIL ABSOLUTE 0.2 0.0 - 0.7 K/ul INTERFACE SYSTEM BASOPHILS ABSOLUTE 0.0 0.0 - 0.2 K/ul INTERFACE SYSTEM 12/08/2004 8:13 AM CDT Oscar Benítez MD HEMATOLOGY ORDERABLES Final R esult INTERFACE SYSTEM Refer to clinic/hospital department * (ABNORMAL) CK TOTAL, RELATIVE INDEX (12/07/2004 11:57 PM CDT) CK-MB CHEMICAL INDEX 6.0(H) 0.0 - 4.5 INTERFACE SYSTEM 12/07/2004 11:5 7 PM CDT Oscar Benítez MD CHEMISTRY ORDERABLES Final Re sult Performing Organization Address [facility] Phone Number INTERFACE SYSTEM Refer to clinic/hospital department * (ABNORMAL) CK (12/07/2004 11:57 PM CDT) CK 258(H) 0 - 155 IU/L INTERFACE SYSTEM 12/07/2004 11:5 7 PM CDT Oscar Benítez MD CHEMISTRY ORDERABLES Final Re sult Performing Organization Address [facility] Phone Number INTERFACE SYSTEM Refer to clinic/hospital department * (ABNORMAL) CKMB (12/07/2004 11:57 PM CDT) CKMB 15.6(H) 0.0 - 5.0 ng/mL INTERFACE SYSTEM Comment: As of 04 at 14:30 [facility] has changed the methodology for CK-MB and with this change the reference range has changed from 0-5.5 ng/ml to 0-5.0 ng/ml 12/07/2004 11:5 7 PM CDT Oscar Benítez MD CHEMISTRY ORDERABLES COM Samia l Result Performing Organization Address [facility] Phone Number INTERFACE SYSTEM Refer to clinic/hospital department * (ABNORMAL) CK (12/07/2004 11:57 PM CDT) CK 254(H) 0 - 155 IU/L INTERFACE SYSTEM 12/07/2004 11:5 7 PM CDT Oscar Benítez MD CHEMISTRY ORDERABLES Final Re sult Performing Organization Address [facility] de Phone Number INTERFACE SYSTEM Refer to clinic/hospital department * POC ACTIVATED CLOTTING TIME (12/07/2004 7:15 PM CDT) ACT POC 136 79 - 149 sec INTERFACE SYSTEM 12/07/2004 7:15 PM CDT Oscar Benítez MD POINT OF CARE TESTING Final R esult INTERFACE SYSTEM Refer to clinic/hospital department * (ABNORMAL) CBC WITHOUT DIFFERENTIAL (12/07/2004 5:53 PM CDT) WBC 8.4 4.8 - 10.8 K/ul INTERFACE SYSTEM RBC 4.67 4.60 - 6.20 Mil/ul INTERFACE SYSTEM HEMOGLOBIN 15.4 14.0 - 18.0 g/dL INTERFACE SYSTEM HEMATOCRIT 44.7 41.0 - 53.0 % INTERFACE SYSTEM MCV 95.7 84.0 - 103.0 Fl INTERFACE SYSTEM MCH 33.0 27.0 - 34.0 pg INTERFACE SYSTEM MCHC 34.5 30.0 - 35.0 g/dL INTERFACE SYSTEM RDW 12.9 11.0 - 14.5 percent(in active) INTERFACE SYSTEM PLATELETS 217 140 - 440 K/ul INTERFACE SYSTEM MPV 9.9 8.9 - 12.8 Fl INTERFACE SYSTEM NEUTROPHILS 68.9 42.2 - 75.2 percent(in active) INTERFACE SYSTEM LYMPHOCYTES 22.2(L) 24.0 - 44.0 percent(in active) INTERFACE SYSTEM MONOCYTES 6.8 2.0 - 10.0 percent(in active) INTERFACE SYSTEM EOSINOPHILS 1.7 0.0 - 7.0 % INTERFACE SYSTEM BASOPHILS 0.4 0.0 - 1.0 percent(in active) INTERFACE SYSTEM NEUTROPHIL ABSOLUTE 5.8 2.0 - 8.0 K/uL INTERFACE SYSTEM LYMPHOCYTE ABSOLUTE 1.9 1.2 - 4.0 K/ul INTERFACE SYSTEM MONOCYTE ABSOLUTE 0.6 0.1 - 0.6 K/ul INTERFACE SYSTEM EOSINOPHIL ABSOLUTE 0.1 0.0 - 0.7 K/ul INTERFACE SYSTEM BASOPHILS ABSOLUTE 0.0 0.0 - 0.2 K/ul INTERFACE SYSTEM 12/07/2004 5:53 PM CDT Oscar Benítez MD HEMATOLOGY ORDERABLES Final R esult INTERFACE SYSTEM Refer to clinic/hospital department * (ABNORMAL) CK (12/07/2004 3:17 PM CDT) CK 323(H) 0 - 155 IU/L INTERFACE SYSTEM 12/07/2004 3:17 PM CDT Oscar Benítez MD CHEMISTRY ORDERABLES Final Re sult Performing Organization Address [facility] Phone Number INTERFACE SYSTEM Refer to clinic/hospital department * (ABNORMAL) CK TOTAL, RELATIVE INDEX (12/07/2004 3:17 PM CDT) CK-MB CHEMICAL INDEX 7.5(H) 0.0 - 4.5 INTERFACE SYSTEM 12/07/2004 3:17 PM CDT Oscar Benítez MD CHEMISTRY ORDERABLES Final Re sult Performing Organization Address [facility] Phone Number INTERFACE SYSTEM Refer to clinic/hospital department * (ABNORMAL) CARDIAC ENZYMES (12/07/2004 3:17 PM CDT) CKMB 24.3(H) 0.0 - 5.0 ng/mL INTERFACE SYSTEM Comment: As of 04 at 14:30 [facility] has changed the methodology for CK-MB and with this change the reference range has changed from 0-5.5 ng/ml to 0-5.0 ng/ml TROPONIN I 12.8(AA) 0.0 - 1.5 ng/mL INTERFACE SYSTEM Comment: As of 04 at 14:30 [facility] has changed the methodology for Troponin but the reference range of 1.5 ng/ml has remained the same. Potentially critical/toxic troponin called by lpf to Cindy, with verbal repeat, at 12/07/2004 17:16. 12/07/2004 3:17 PM CDT us Oscar Benítez MD CHEMISTRY ORDERABLES Final Re sult Performing Organization Address [facility] Phone Number INTERFACE SYSTEM Refer to clinic/hospital department * (ABNORMAL) CARDIAC ENZYMES (12/07/2004 11:20 AM CDT) CKMB 30.2(H) 0.0 - 5.0 ng/mL INTERFACE SYSTEM Comment: As of 04 at 14:30 [facility] has changed the methodology for CK-MB and with this change the reference range has changed from 0-5.5 ng/ml to 0-5.0 ng/ml TROPONIN I 15.3(AA) 0.0 - 1.5 ng/mL INTERFACE SYSTEM Comment: As of 04 at 14:30 [facility] has changed the methodology for Troponin but the reference range of 1.5 ng/ml has remained the same. TROP OF 15.3 CALLED TO 3H RADHA (VERBAL REPEAT)12/07/2004 12:25 PM/PEB 12/07/2004 11:2 0 AM CDT Lina Flores MD CHEMISTRY ORDERABLES Final Result Performing Organization Address [facility] Co de Phone Number INTERFACE SYSTEM Refer to clinic/hospital department * (ABNORMAL) CKMB (12/07/2004 11:18 AM CDT) CKMB 30.2(H) 0.0 - 5.0 ng/mL INTERFACE SYSTEM Comment: As of 04 at 14:30 [facility] has changed the methodology for CK-MB and with this change the reference range has changed from 0-5.5 ng/ml to 0-5.0 ng/ml 6 HR CARDIAC=REDORDERED DUE TO COMPUTER ERROR 12/07/2004 11:1 8 AM CDT Oscar Benítez MD CHEMISTRY ORDERABLES COM Samia l Result INTERFACE SYSTEM Refer to clinic/hospital department * (ABNORMAL) CK TOTAL, RELATIVE INDEX (12/07/2004 11:18 AM CDT) CK-MB CHEMICAL INDEX 7.0(H) 0.0 - 4.5 INTERFACE SYSTEM 12/07/2004 11:1 8 AM CDT Oscar Benítez MD CHEMISTRY ORDERABLES Final Re sult Performing Organization Address [facility] Phone Number INTERFACE SYSTEM Refer to clinic/hospital department * (ABNORMAL) CK (12/07/2004 11:18 AM CDT) CK 431(H) 0 - 155 IU/L INTERFACE SYSTEM 12/07/2004 11:1 8 AM CDT Oscar Benítez MD CHEMISTRY ORDERABLES Final Re sult Performing Organization Address [facility] Phone Number INTERFACE SYSTEM Refer to clinic/hospital department * C-REACTIVE PROTEIN (12/07/2004 9:45 AM CDT) CRP 0.7 0.0 - 1.0 mg/dL INTERFACE SYSTEM Comment: This is a standard CRP method, and is not intended as a marker for Heart Disease This test cannot be used to assess cardiac risk. As of 03/27/2004, the linearity on CRP has been changed to 0.3-11.0 mg/dl. The past range was 0.7-11.0 mg/dl. 12/07/2004 9:45 AM CDT Oscar Benítez MD CHEMISTRY ORDERABLES Final Re sult Performing Organization Address [facility] Phone Number INTERFACE SYSTEM Refer to clinic/hospital department * (ABNORMAL) PT AND APTT (12/07/2004 9:44 AM CDT) PROTIME 14.4 12.4 - 14.9 Secs INTERFACE SYSTEM Comment: As of 04 note change in normal range. INR 1.1 INTERFACE SYSTEM Comment: Expected Values for INR: DVT/PE Goal INR 2.5; range 2.0 - 3.0 Valve Replacement Tissue Goal INR 2.5; range 2.0 - 3.0 Mechanical Goal INR 3.0; range 2.5 - 3.5 POST-ND Goal INR 2.5; range 2.0 - 3.0 or Goal 3.0; range 2.5 - 3.5 Atrial Fibrillation Goal INR 2.5; range 2.0 - 3.0 Ischemic Stroke Goal INR 2.5; range 2.0 - 3.0 For additional information see Guidelines for Anticoagulation available from the pharmacy [facility]. PTT 81.3(H) 24.3 - 37.5 Secs INTERFACE SYSTEM Comment:Therapeutic Range: 12/07/2004 9:44 AM CDT Oscar Benítez MD HEMATOLOGY ORDERABLES Final R esult Performing Organization Address [facility] Co de Phone Number INTERFACE SYSTEM Refer to clinic/hospital department * (ABNORMAL) HEPATIC FUNCTION PANEL (12/07/2004 5:05 AM CDT) ALKALINE PHOSPHATASE 94 38 - 126 IU/L INTERFACE SYSTEM TOTAL PROTEIN 8.2 6.3 - 8.2 g/dL INTERFACE SYSTEM ALBUMIN 4.3 3.5 - 5.0 g/dL INTERFACE SYSTEM AST 63(H) 17 - 59 IU/L INTERFACE SYSTEM ALT 37 21 - 72 IU/L INTERFACE SYSTEM BILIRUBIN TOTAL 0.6 0.2 - 1.4 mg/dL INTERFACE SYSTEM BILIRUBIN DIRECT 0.3 0.0 - 0.4 mg/dL INTERFACE SYSTEM 12/07/2004 5:05 AM CDT Oscar Benítez MD CHEMISTRY ORDERABLES Final Re sult Performing Organization Address [facility] Phone Number INTERFACE SYSTEM Refer to clinic/hospital department * (ABNORMAL) LIPID PANEL (12/07/2004 5:05 AM CDT) CHOLESTEROL 287(H) 75 - 200 mg/dL INTERFACE SYSTEM TRIGLYCERIDE 598(H) 0 - 200 mg/dL INTERFACE SYSTEM CALCULATED TOTAL CHOLESTEROL TO HDL RATIO 8.44(H) 3.43 - 4.97 INTERFACE SYSTEM HDL 34(L) 40 - 60 mg/dL INTERFACE SYSTEM LDL CALCULATED SEE COMMENT 0 - 130 mg/dL INTERFACE SYSTEM Comment:Triglycerides >400 m g/dl; LDL calculation invalid 12/07/2004 5:05 AM CDT Oscar Benítez MD CHEMISTRY ORDERABLES Final Re sult Performing Organization Address [facility] Phone Number INTERFACE SYSTEM Refer to clinic/hospital department * (ABNORMAL) CK TOTAL, RELATIVE INDEX (12/07/2004 5:05 AM CDT) CK-MB CHEMICAL INDEX 7.8(H) 0.0 - 4.5 INTERFACE SYSTEM 12/07/2004 5:05 AM CDT Lina Flores MD CHEMISTRY ORDERABLES Final Result Performing Organization Address [facility] Phone Number INTERFACE SYSTEM Refer to clinic/hospital department * (ABNORMAL) CK (12/07/2004 5:05 AM CDT) CK 392(H) 0 - 155 IU/L INTERFACE SYSTEM 12/07/2004 5:05 AM CDT Lina Flores MD CHEMISTRY ORDERABLES Final Result Performing Organization Address [facility] Phone Number INTERFACE SYSTEM Refer to clinic/hospital department * (ABNORMAL) CARDIAC ENZYMES (12/07/2004 5:05 AM CDT) CKMB 30.5(H) 0.0 - 5.0 ng/mL INTERFACE SYSTEM Comment: As of 04 at 14:30 [facility] has changed the methodology for CK-MB and with this change the reference range has changed from 0-5.5 ng/ml to 0-5.0 ng/ml TROPONIN I 11.9(AA) 0.0 - 1.5 ng/mL INTERFACE SYSTEM Comment: As of 04 at 14:30 [facility] has changed the methodology for Troponin but the reference range of 1.5 ng/ml has remained the same. Potentially critical/toxic trop called by hakeem hoyos, with verbal repeat, at 12/07/2004 5:47 AM. 12/07/2004 5:05 AM CDT Lina Flores MD CHEMISTRY ORDERABLES Final Result INTERFACE SYSTEM Refer to clinic/hospital department documented in this encounter Visit Diagnoses Diagnosis Acute myocardial infarction, subendocardial infarction, initial episode of care- Primary documented in this encounter
--- OUTSIDE RECORDS SUMMARY | 2025-05-16 01:34 | XMS_ITS | Clinical Summary ---
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 Active Aripeka-3 Fatty Acids 1,000 mg Oral Cap Take 3 Caps by mouth daily. Active nitroglycerin (NITROSTAT) 0.[address] 1 Tab under tongue every 5 minutes as needed for Chest Pain. 25 Tab 6 05/15/2010 Active rosuvastatin (CRESTOR) 40 mg tabletIndicatio ns:Dyslipidemia ,Encounter for long-term (current) use of other medications,Ess ential hypertension,CA D (coronary artery disease),Old myocardial infarction Take 1 Tab by mouth daily at bedtime. 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 Gender Identity Not on file Sexual Orientation Not on file Last Filed Vital Signs Vital Sign Reading Time Taken Comments Blood Pressure 124/74 07/06/2013 2:58 PM MOVER Pulse 77 07/06/2013 2:58 PM MOVER Temperature - - Respiratory Rate 12 06/21/2011 4:02 PM MOVER Oxygen Saturation 93% 05/15/2010 1:16 PM CDT Inhaled Oxygen Concentration - - Weight 96.2 kg (212 lb) 07/06/2013 2:58 PM MOVER Height 167.6 cm (5' 6 ) 07/06/2013 2:58 PM MOVER Body Mass Index 34.22 07/06/2013 2:58 PM MOVER Plan of Treatment Health Maintenance Due Date Last Done Comments DTAP/TDAP/TD VACCINES (1 - Tdap) 1972 COLORECTAL SCREENING 1998 Colorectal Cancer Screening 1998 FIT-DNA Q 3 years 1998 FIT/FOBT Q 1 year 1998 Flex Sig/CT Colonography Q 5 years 1998 PNEUMOCOCCAL VACCINE 50+ YEARS (1 of 1 - PCV) 11/04/19 04 ZOSTER VACCINE (1 of 2) 11/04/2003 INFLUENZA VACCINE (#1) 2025 RSV VACCINE (60+ or ) (1 - 1-dose 75+ series) 2028
--- OUTSIDE RECORDS SUMMARY | 2025-05-16 01:34 | XMS_ITS | Encounter Summary ---
Author Organization [facility] Address [address] [place] [address] Care Team Providers Care Tread Booker Name Role Phone Unavailable Primary Care Provider Unavailabl e Encounter Details Date Type Department Care Team (Late st Contact Info) Description 03/31/2020 Lab Requisition [facility] Laboratory Services [place] [address] [place] [phone] Alex Rubio, DO NO ADDRESS ON FILE Social History Tobacco Use Types Packs/Day Years Used Date Smoking Tobacco: Every Day Cigarettes 1 37 Smokeless Tobacco: Never Alcohol Use Standard Drinks/Week Comments No 0 (1 standard drink = 0.6 oz pur e alcohol) Sex and Gender Information Value Date Recorded Sex Assigned at Not on file 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 Gender Identity Not on file Sexual Orientation Not on file documented as of this encounter Plan of Treatment Not on file documented as of this encounter Procedures Procedure Name Priority Date/Time Associated Diagnosis Comments PSA MEDICARE SCREEN Routine 03/30/2020 1 2:30 PM CDT CBC WITH DIFFERENTIAL Routine 03/30/2020 12:30 PM CDT TSH Routine 03/30/2020 12:30 PM CDT HEMOGLOBIN A1C Routine 03/30/2020 12:30 PM CDT LIPID PANEL Routine 03/30/2020 12:30 PM CDT COMPREHENSIVE METABOLIC PANEL Routine 03/30/2020 12:30 PM CDT documented in this encounter Results * (ABNORMAL) TSH (03/30/2020 12:30 PM CDT) TSH 4.80(H) 0.27 - 4.20 uIU/mL 03/31/2020 8:39 AM CDT [facility] Blood Collection / Unknown 03/30/2020 12:30 PM CDT 03/31/2020 8:18 AM CDT us Alex Rubio DO CHEMISTRY ORDERABLES Final Resu lt [facility] CLIA # [id number] [address] [place] [address] * PSA MEDICARE SCREEN (03/30/2020 12:30 PM CDT) PSA 4.8 ng/mL 03/31/2020 8:4 5 AM CDT [facility] Blood Collection / Unknown 03/30/2020 12:30 PM CDT 03/31/2020 8:18 AM CDT us Alex Rubio DO CHEMISTRY ORDERABLES COM Final Result [facility] CLIA # [id number] [address] [place] [address] * (ABNORMAL) LIPID PANEL (03/30/2020 12:30 PM CDT) CHOLESTEROL 115 <200 mg/dL 03/31/2020 8:39 AM CDT [facility] TRIGLYCERIDE 199(H) <150 mg/dL 03/31/2020 8:39 AM CDT [facility] HDL 26(L) 40 - 59 mg/dL 03/31/2020 8:39 AM CDT [facility] LDL CALCULATED 49 <100 mg/dL 03/31/2020 8:39 AM CDT [facility] NON-HDL CHOLESTEROL 89 <130 mg/dL 03/31/2020 8:39 AM CDT [facility] Blood Collection / Unknown 03/30/2020 12:30 PM CDT 03/31/2020 8:18 AM CDT [facility] - 03/31/2020 8:39 AM CDT TOTAL CHOLESTEROL mg/dL Desirable <200 Borderline high 200-239 High >=240 TRIGLYCERIDES mg/dL Normal <150 Borderline high 150-199 High 200-499 Very high >=500 HDL CHOLESTEROL mg/dL Low <40 Normal 40-59 Desirable >=60 NON HDL CHOLESTEROL mg/dL Optimal <130 Near Optimal 130-159 Borderline High 160-189 Very High >=190 CALCULATED LDL mg/dL LDL <70, OPTIMAL if have Atherosclerotic cardiovascular disease (ASCVD) or intermediate or higher (>7.5%) 10 year risk of ASCVD including most adults with diabetes. LDL <100, Optimal in adult patients with low (<7.5%) 10 year ASCVD risk LDL 100-160, Suboptimal LDL >160, High LDL >190, Very high ATPIII Guidelines Reference Ranges for Lipid Panels (NCEP/AMA) . Alex Rubio DO CHEMISTRY ORDERABLES Final Resu lt Performing Organization Address [facility] Co de Phone Number [facility] CLIA # [id number] [address] [place] [address] * (ABNORMAL) HEMOGLOBIN A1C (03/30/2020 12:30 PM CDT) HEMOGLOBIN A1C 6.7(H) <=5.6 % 03/31/2020 8:39 AM CDT [facility] EST. AVG GLUCOSE, A1C 146 mg/dL 03/31/2020 8:39 AM CDT [facility] Blood Collection / Unknown 03/30/2020 12:30 PM CDT 03/31/2020 8:18 AM CDT [facility] - 03/31/2020 8:39 AM CDT HGB A1C INTERPRETATION NORMAL: <5.7% PRE-DIABETES: 5.7 - 6.4% DIABETES: 6.5% OR GREATER Alex Rubio DO CHEMISTRY ORDERABLES Final Resu lt Performing Organization Address City/[facility]/ZIP Co de Phone Number [facility] CLIA # [id number] [address] [place] [phone] * (ABNORMAL) COMPREHENSIVE METABOLIC PANEL (03/30/2020 12:30 PM CDT) SODIUM 141 136 - 145 mmol/L 03/31/2020 8:39 AM [facility] POTASSIUM 4.1 3.5 - 5.1 mmol/L 03/31/2020 8:39 AM [facility] CHLORIDE 106 98 - 107 mmol/L 03/31/2020 8:39 AM [facility] CO2 22 22 - 29 mmol/L 03/31/2020 8:39 AM [facility] CALCIUM 9.5 8.8 - 10.2 mg/dL 03/31/2020 8:39 AM [facility] BUN 17 8 - 23 mg/dL 03/31/2020 8:39 AM [facility] CREATININE 1.02 0.67 - 1.17 mg/dL 03/31/2020 8:39 AM [facility] GLUCOSE 114(H) 74 - 99 mg/dL 03/31/2020 8:39 AM [facility] TOTAL PROTEIN 8.2 6.6 - 8.7 g/dL 03/31/2020 8:39 AM [facility] ALBUMIN 4.4 3.5 - 5.2 g/dL 03/31/2020 8:39 AM [facility] BILIRUBIN TOTAL 0.5 <=1.2 mg/dL 03/31/2020 8:39 AM [facility] ALKALINE PHOSPHATASE 81 40 - 129 U/L 03/31/2020 8:39 AM [facility] AST 23 10 - 50 U/L 03/31/2020 8:39 AM [facility] ALT 15 10 - 50 U/L 03/31/2020 8:39 AM [facility] GFR >60 >=60 mL/min/1.7 3 sq meter 03/31/2020 8:39 AM [facility] Comment: eGFR has not been validated for [...] GFR, >60 >=60 mL/min/1.7 3 sq meter 03/31/2020 8:39 AM CDT [facility] ANION GAP 13 12 - 20 mmol/L 03/31/2020 8:39 AM [facility] Blood Collection / Unknown 03/30/2020 12:30 PM CDT 03/31/2020 8:18 AM CDT us Alex Rubio DO CHEMISTRY ORDERABLES Final Resu lt [facility] CLIA # [id number] [address] [place] [phone] * (ABNORMAL) CBC WITH DIFFERENTIAL (03/30/2020 12:30 PM CDT) WBC 9.2(H) 4.2 - 9.1 K/uL 03/31/2020 8:45 AM [facility] RBC 5.04 4.63 - 6.08 M/uL 03/31/2020 8:45 AM [facility] HEMOGLOBIN 15.8 13.7 - 17.5 g/dL 03/31/2020 8:45 AM [facility] HEMATOCRIT 47.2 40.1 - 51.0 % 03/31/2020 8:45 AM [facility] MCV 93.7(H) 79.0 - 92.2 fL 03/31/2020 8:45 AM [facility] MCH 31.3 25.7 - 32.2 pg 03/31/2020 8:45 AM [facility] MCHC 33.5 32.3 - 36.5 g/dL 03/31/2020 8:45 AM [facility] RDW 13.5 11.0 - 14.5 % 03/31/2020 8:45 AM [facility] RDW-STDEV 46.6 36.9 - 56.9 fL 03/31/2020 8:45 AM [facility] PLATELETS 190 130 - 400 K/uL 03/31/2020 8:45 AM [facility] MPV 10.3 10.0 - 14.8 fL 03/31/2020 8:45 AM [facility] NEUTROPHILS 50 34 - 68 % 03/31/2020 8:45 AM [facility] LYMPHOCYTES 38 22 - 53 % 03/31/2020 8:45 AM [facility] MONOCYTES 6 5 - 12 % 03/31/2020 8:45 AM [facility] EOSINOPHILS 5 1 - 7 % 03/31/2020 8:45 AM [facility] BASOPHILS 0 0 - 1 % 03/31/2020 8:45 AM [facility] IMMATURE GRANULOCYTES 0 % 03/31/2020 8:45 AM [facility] NEUTROPHIL ABSOLUTE 4.62 1.78 - 5.38 K/uL 03/31/2020 8:45 AM [facility] LYMPHOCYTE ABSOLUTE 3.53(H) 1.20 - 3.40 K/uL 03/31/2020 8:45 AM [facility] MONOCYTE ABSOLUTE 0.59 0.30 - 0.82 K/uL 03/31/2020 8:45 AM [facility] EOSINOPHIL ABSOLUTE 0.42 0.04 - 0.54 K/uL 03/31/2020 8:45 AM [facility] BASOPHILS ABSOLUTE 0.02 0.01 - 0.08 K/uL 03/31/2020 8:45 AM [facility] IMMATURE GRANULOCYTES ABSOLUTE 0.03 K/uL 03/31/2020 8:45 AM [facility] Blood Collection / Unknown 03/30/2020 12:30 PM CDT 03/31/2020 8:18 AM CDT us Alex Rubio DO HEMATOLOGY ORDERABLES Final Res ult [facility] # [id number] [address] [place] [address] documented in this encounter Visit Diagnoses Not on filedocumented in this encounter
--- OUTSIDE RECORDS SUMMARY | 2025-05-16 01:34 | XMS_ITS | Encounter Summary ---
Author Organization [facility] Address [address] [place] [address] Care Team Providers Care Locker Plant Attendant Name Role Phone Unavailable Primary Care Provider Unavailabl e Encounter Details Date Type Department Care Team (Late st Contact Info) Description 09/14/2019 Lab Requisition [facility] General Laboratory Services [place] [address] [place] [phone] Alex Rubio, DO NO ADDRESS ON FILE Social History Tobacco Use Types Packs/Day Years Used Date Smoking Tobacco: Every Day Cigarettes 1 37 Smokeless Tobacco: Never Alcohol Use Standard Drinks/Week Comments No 0 (1 standard drink = 0.6 oz pur e alcohol) Sex and Gender Information Value Date Recorded Sex Assigned at Not on file 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 Gender Identity Not on file Sexual Orientation Not on file documented as of this encounter Plan of Treatment Not on file documented as of this encounter Procedures Procedure Name Priority Date/Time Associated Diagnosis Comments HEMOGLOBIN A1C Routine 09/14/2019 8:58 PM PAPER PATTERN INSPECTOR LIPID PANEL Routine 09/14/2019 8:58 PM PAPER PATTERN INSPECTOR COMPREHENSIVE METABOLIC PANEL Routine 09/14/2019 8:58 PM PAPER PATTERN INSPECTOR documented in this encounter Results * (ABNORMAL) HEMOGLOBIN A1C (09/14/2019 8:58 PM PAPER PATTERN INSPECTOR) HEMOGLOBIN A1C 6.3(H) <=5.6 % 09/14/2019 10:27 PM PAPER PATTERN INSPECTOR [facility] EST. AVG GLUCOSE, A1C 134 mg/dL 09/14/2019 10:27 PM PAPER PATTERN INSPECTOR [facility] Blood Collection / Unknown 09/14/2019 8:58 PM PAPER PATTERN INSPECTOR 09/14/2019 9:29 PM PAPER PATTERN INSPECTOR Narrative [facility] - 09/14/2019 10:27 PM PAPER PATTERN INSPECTOR HGB A1C INTERPRETATION NORMAL: <5.7% PRE-DIABETES: 5.7 - 6.4% DIABETES: 6.5% OR GREATER us Alex Rubio DO CHEMISTRY ORDERABLES Final Resu lt [facility] CLIA # [id number] [address] [place] [phone] * (ABNORMAL) LIPID PANEL (09/14/2019 8:58 PM PAPER PATTERN INSPECTOR) CHOLESTEROL 105 <200 mg/dL 09/14/2019 9:55 PM [facility] TRIGLYCERIDE 175(H) <150 mg/dL 09/14/2019 9:55 PM [facility] HDL 27(L) 40 - 59 mg/dL 09/14/2019 9:55 PM [facility] LDL CALCULATED 43 <100 mg/dL 09/14/2019 9:55 PM [facility] NON-HDL CHOLESTEROL 78 <130 mg/dL 09/14/2019 9:55 PM [facility] Blood Collection / Unknown 09/14/2019 8:58 PM PAPER PATTERN INSPECTOR 09/14/2019 9:28 PM PAPER PATTERN INSPECTOR Narrative [facility] - 09/14/2019 9:55 PM PAPER PATTERN INSPECTOR TOTAL CHOLESTEROL mg/dL Desirable <200 Borderline high [...] Reference Ranges for Lipid Panels (NCEP/AMA) . us Alex Rubio DO CHEMISTRY ORDERABLES Final Resu lt [facility] CLIA # [id number] [address] [place] [address] * (ABNORMAL) COMPREHENSIVE METABOLIC PANEL (09/14/2019 8:58 PM PAPER PATTERN INSPECTOR) SODIUM 142 136 - 145 mmol/L 09/14/2019 9:55 PM [facility] POTASSIUM 4.3 3.5 - 5.1 mmol/L 09/14/2019 9:55 PM [facility] CHLORIDE 105 98 - 107 mmol/L 09/14/2019 9:55 PM [facility] CO2 24 22 - 29 mmol/L 09/14/2019 9:55 PM [facility] CALCIUM 9.7 8.8 - 10.2 mg/dL 09/14/2019 9:55 PM [facility] BUN 14 8 - 23 mg/dL 09/14/2019 9:55 PM [facility] CREATININE 0.99 0.67 - 1.17 mg/dL 09/14/2019 9:55 PM [facility] GLUCOSE 110(H) 74 - 99 mg/dL 09/14/2019 9:55 PM [facility] TOTAL PROTEIN 8.0 6.6 - 8.7 g/dL 09/14/2019 9:55 PM [facility] ALBUMIN 4.8 3.5 - 5.2 g/dL 09/14/2019 9:55 PM [facility] BILIRUBIN TOTAL 0.4 <=1.2 mg/dL 09/14/2019 9:55 PM [facility] ALKALINE PHOSPHATASE 83 40 - 129 U/L 09/14/2019 9:55 PM [facility] AST 22 10 - 50 U/L 09/14/2019 9:55 PM [facility] ALT 18 10 - 50 U/L 09/14/2019 9:55 PM [facility] GFR >60 >=60 mL/min/1.7 3 sq meter 09/14/2019 9:55 PM PAPER PATTERN INSPECTOR [facility] Comment: eGFR has not been validated for [...] GFR, >60 >=60 mL/min/1.7 3 sq meter 09/14/2019 9:55 PM PAPER PATTERN INSPECTOR [facility] ANION GAP 13 12 - 20 mmol/L 09/14/2019 9:55 PM [facility] Blood Collection / Unknown 09/14/2019 8:58 PM PAPER PATTERN INSPECTOR 09/14/2019 9:28 PM PAPER PATTERN INSPECTOR us Alex Rubio DO CHEMISTRY ORDERABLES Final Resu lt [facility] CLIA # [id number] [address] [place] [address] documented in this encounter Visit Diagnoses Not on filedocumented in this encounter
--- OUTSIDE RECORDS SUMMARY | 2025-05-16 01:34 | XMS_ITS | Encounter Summary ---
Author Organization [facility] Address [address] [place] [address] Care Team Providers Care Immigration Officer Name Role Phone Unavailable Primary Care Provider Unavailabl e Encounter Details Date Type Department Care Team (Late st Contact Info) Description 12/26/2020 Lab Requisition [facility] General Laboratory Services [place] [address] [place] [phone] Alex Rubio, DO NO ADDRESS ON FILE Social History Tobacco Use Types Packs/Day Years Used Date Smoking Tobacco: Every Day Cigarettes 1 37 Smokeless Tobacco: Never Alcohol Use Standard Drinks/Week Comments No 0 (1 standard drink = 0.6 oz pur e alcohol) Sex and Gender Information Value Date Recorded Sex Assigned at Not on file 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 Gender Identity Not on file Sexual Orientation Not on file documented as of this encounter Plan of Treatment Not on file documented as of this encounter Procedures Procedure Name Priority Date/Time Associated Diagnosis Comments CBC WITH DIFFERENTIAL Routine 12/26/2020 6:53 PM CDT HEMOGLOBIN A1C Routine 12/26/2020 6:53 PM CDT LIPID PANEL Routine 12/26/2020 6:53 PM CDT COMPREHENSIVE METABOLIC PANEL Routine 12/26/2020 6:53 PM CDT documented in this encounter Results * (ABNORMAL) LIPID PANEL (12/26/2020 6:53 PM CDT) Pathologist [facility] CHOLESTEROL 93 <200 mg/dL 12/26/2020 7:[address] [facility] TRIGLYCERIDE 164(H) <150 mg/dL 12/26/2020 7:[address] [facility] HDL 26(L) 40 - 59 mg/dL 12/26/2020 7:[address] [facility] LDL CALCULATED 34 <100 mg/dL 12/26/2020 7:[address] [facility] NON-HDL CHOLESTEROL 67 <130 mg/dL 12/26/2020 7:[address] [facility] Blood BLOOD SPECIMEN / Unknown Collection / Unknown 12/26/2020 6:53 PM CDT 12/26/2020 6:53 PM CDT [facility] - 12/26/2020 7:19 PM CDT TOTAL CHOLESTEROL mg/dL Desirable <200 [...] Rubio DO CHEMISTRY ORDERABLES Final Resu lt [facility] CLIA # [id number] [address] [place] [address] * (ABNORMAL) HEMOGLOBIN A1C (12/26/2020 6:53 PM CDT) HEMOGLOBIN A1C 5.9(H) <=5.6 % 12/26/2020 7:[address] [facility] EST. AVG GLUCOSE, A1C 123 mg/dL 12/26/2020 7:[address] [facility] Blood BLOOD SPECIMEN / Unknown Collection / Unknown 12/26/2020 6:53 PM CDT 12/26/2020 6:53 PM CDT [facility] - 12/26/2020 7:26 PM CDT HGB A1C INTERPRETATION NORMAL: <5.7% PRE-DIABETES: 5.7 - 6.4% DIABETES: 6.5% OR GREATER Alex Rubio DO CHEMISTRY ORDERABLES Final Resu lt [facility] CLIA # [id number] [address] [place] [address] * (ABNORMAL) COMPREHENSIVE METABOLIC PANEL (12/26/2020 6:53 PM CDT) SODIUM 137 136 - 145 mmol/L 12/26/2020 7:19 PM [facility] POTASSIUM 4.2 3.5 - 5.1 mmol/L 12/26/2020 7:19 PM [facility] CHLORIDE 103 98 - 107 mmol/L 12/26/2020 7:19 PM [facility] CO2 23 22 - 29 mmol/L 12/26/2020 7:19 PM [facility] CALCIUM 9.4 8.8 - 10.2 mg/dL 12/26/2020 7:19 PM [facility] BUN 16 8 - 23 mg/dL 12/26/2020 7:19 PM [facility] CREATININE 0.98 0.67 - 1.17 mg/dL 12/26/2020 7:19 PM [facility] GLUCOSE 97 74 - 99 mg/dL 12/26/2020 7:19 PM [facility] TOTAL PROTEIN 8.0 6.6 - 8.7 g/dL 12/26/2020 7:19 PM [facility] ALBUMIN 4.4 3.5 - 5.2 g/dL 12/26/2020 7:19 PM [facility] BILIRUBIN TOTAL 0.4 <=1.2 mg/dL 12/26/2020 7:19 PM [facility] ALKALINE PHOSPHATASE 90 40 - 129 U/L 12/26/2020 7:19 PM [facility] AST 18 10 - 50 U/L 12/26/2020 7:19 PM [facility] ALT 11 10 - 50 U/L 12/26/2020 7:19 PM [facility] GFR >60 >=60 mL/min/1.7 3 sq meter 12/26/2020 7:19 PM [facility] Comment: eGFR has not been validated for [...] GFR, >60 >=60 mL/min/1.7 3 sq meter 12/26/2020 7:19 PM [facility] ANION GAP 11(L) 12 - 20 mmol/L 12/26/2020 7:19 PM [facility] Blood BLOOD SPECIMEN / Unknown Collection / Unknown 12/26/2020 6:53 PM CDT 12/26/2020 6:53 PM CDT us Alex Rubio DO CHEMISTRY ORDERABLES Final Resu lt [facility] CLIA # [id number] [address] [place] [phone] * (ABNORMAL) CBC WITH DIFFERENTIAL (12/26/2020 6:53 PM CDT) WBC 7.2 4.2 - 9.1 K/uL 12/26/2020 6:[address] [facility] RBC 4.63 4.63 - 6.08 M/uL 12/26/2020 6:55 PM [facility] HEMOGLOBIN 14.3 13.7 - 17.5 g/dL 12/26/2020 6:55 PM [facility] HEMATOCRIT 43.7 40.1 - 51.0 % 12/26/2020 6:55 PM [facility] MCV 94.4(H) 79.0 - 92.2 fL 12/26/2020 6:55 PM [facility] MCH 30.9 25.7 - 32.2 pg 12/26/2020 6:55 PM [facility] MCHC 32.7 32.3 - 36.5 g/dL 12/26/2020 6:55 PM [facility] RDW 13.6 11.0 - 14.5 % 12/26/2020 6:55 PM [facility] RDW-STDEV 47.8 36.9 - 56.9 fL 12/26/2020 6:55 PM [facility] PLATELETS 177 130 - 400 K/uL 12/26/2020 6:55 PM [facility] MPV 10.0 10.0 - 14.8 fL 12/26/2020 6:55 PM [facility] NEUTROPHILS 55 34 - 68 % 12/26/2020 6:55 PM [facility] LYMPHOCYTES 32 22 - 53 % 12/26/2020 6:55 PM [facility] MONOCYTES 7 5 - 12 % 12/26/2020 6:55 PM [facility] EOSINOPHILS 5 1 - 7 % 12/26/2020 6:55 PM [facility] BASOPHILS 0 0 - 1 % 12/26/2020 6:55 PM [facility] IMMATURE GRANULOCYTES 0 % 12/26/2020 6:55 PM [facility] NEUTROPHIL ABSOLUTE 3.98 1.78 - 5.38 K/uL 12/26/2020 6:55 PM [facility] LYMPHOCYTE ABSOLUTE 2.32 1.20 - 3.40 K/uL 12/26/2020 6:[address] [facility] MONOCYTE ABSOLUTE 0.52 0.30 - 0.82 K/uL 12/26/2020 6:[address] [facility] EOSINOPHIL ABSOLUTE 0.34 0.04 - 0.54 K/uL 12/26/2020 6:[address] [facility] BASOPHILS ABSOLUTE 0.01 0.01 - 0.08 K/uL 12/26/2020 6:[address] [facility] IMMATURE GRANULOCYTES ABSOLUTE 0.03 K/uL 12/26/2020 6:[address] [facility] Blood BLOOD SPECIMEN / Unknown Collection / Unknown 12/26/2020 6:53 PM CDT 12/26/2020 6:53 PM CDT us Alex Rubio DO HEMATOLOGY ORDERABLES Final Res ult [facility] CLIA # [id number] [address] [place] [address] [id number] documented in this encounter Visit Diagnoses Not on filedocumented in this encounter
--- OUTSIDE RECORDS SUMMARY | 2025-05-16 01:34 | XMS_ITS | Encounter Summary ---
Author Organization [employer] [facility] Address [address] [place] [address] Care Team Providers Care Threat Analyst Name Role Phone Unavailable Primary Care Provider Unavailabl e Encounter Details Date Type Department Care Team (Late st Contact Info) Description 09/27/2014 Lab Requisition [facility] Laboratory Services [place] [address] [place] [phone] Rubia Burton NP NO ADDRESS ON FILE Social History Tobacco Use Types Packs/Day Years Used Date Smoking Tobacco: Every Day Cigarettes 1 37 Smokeless Tobacco: Never Alcohol Use Standard Drinks/Week Comments No 0 (1 standard drink = 0.6 oz pur e alcohol) Sex and Gender Information Value Date Recorded Sex Assigned at Not on file 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:33 AM OIL DISTRIBUTOR Gender Identity Not on file Sexual Orientation Not on file documented as of this encounter Plan of Treatment Not on file documented as of this encounter Procedures Procedure Name Priority Date/Time Associated Diagnosis Comments LIPID PANEL Routine 09/27/2014 10:48 PM OIL DISTRIBUTOR COMPREHENSIVE METABOLIC PANEL Routine 09/27/2014 10:48 PM OIL DISTRIBUTOR documented in this encounter Results * (ABNORMAL) LIPID PANEL (09/27/2014 10:48 PM OIL DISTRIBUTOR) CHOLESTEROL 109(L) 130 - 200 mg/dL 09/27/2014 11:27 PM OIL DISTRIBUTOR [facility] [place] TRIGLYCERIDE 330(H) 30 - 200 mg/dL 09/27/2014 11:27 PM OIL DISTRIBUTOR [facility] HDL 25(L) 35 - 80 mg/dL 09/27/2014 11:27 PM OIL DISTRIBUTOR [facility] LDL CALCULATED 18 0 - 100 mg/dL 09/27/2014 11:27 PM OIL DISTRIBUTOR [facility] NON-HDL CHOLESTEROL 84 mg/dL 09/27/2014 11:27 PM [facility] Blood 09/27/2014 10:4 8 PM OIL DISTRIBUTOR 09/27/2014 10:48 PM OIL DISTRIBUTOR [facility] - 09/27/2014 11:27 PM OIL DISTRIBUTOR TOTAL CHOLESTEROL mg/dL Desirable <200 Borderline high 200-239 High >=240 TRIGLYCERIDES mg/dL Normal <150 Borderline high 150-199 High 200-499 Very high >=500 HDL CHOLESTEROL mg/dL Low <40 Normal 40-60 Desirable >60 LDL CHOLESTEROL mg/dL Optimal <100 Low risk 100-129 Borderline high 130-159 High 160-189 Very high >=190 NON HDL CHOLESTEROL mg/dL Desirable <130 Borderline high 130-159 High 160-189 Very high >=190 Based on AHA/NCEP Guidelines Rubia Burton NP CHEMISTRY ORDERABLES Final R esult [facility] CLIA # [id number] [address] [place] [address] * (ABNORMAL) COMPREHENSIVE METABOLIC PANEL (09/27/2014 10:48 PM OIL DISTRIBUTOR) SODIUM 141 136 - 145 mmol/L 09/27/2014 11:27 PM [facility] POTASSIUM 3.8 3.5 - 5.1 mmol/L 09/27/2014 11:27 PM [facility] CHLORIDE 103 98 - 107 mmol/L 09/27/2014 11:27 PM [facility] CO2 24 21 - 32 mmol/L 09/27/2014 11:27 PM [facility] CALCIUM 9.1 8.5 - 10.1 mg/dL 09/27/2014 11:27 PM [facility] BUN 10 7 - 18 mg/dL 09/27/2014 11:27 PM [facility] CREATININE 1.10 0.60 - 1.30 mg/dL 09/27/2014 11:27 PM [facility] GLUCOSE 151(H) 74 - 106 mg/dL 09/27/2014 11:27 PM [facility] TOTAL PROTEIN 8.8(H) 6.4 - 8.2 g/dL 09/27/2014 11:27 PM [facility] ALBUMIN 4.0 3.4 - 5.0 g/dL 09/27/2014 11:27 PM [facility] BILIRUBIN TOTAL 0.7 0.2 - 1.0 mg/dL 09/27/2014 11:27 PM [facility] ALKALINE PHOSPHATASE 100 46 - 116 U/L 09/27/2014 11:27 PM [facility] AST 50(H) 15 - 37 U/L 09/27/2014 11:27 PM [facility] ALT 51 30 - 65 U/L 09/27/2014 11:27 PM [facility] GFR >60 >=60 mL/min/1.7 3 sq meter 09/27/2014 11:27 PM [facility] Comment: eGFR has not been [...] GFR, >60 >=60 mL/min/1.7 3 sq meter 09/27/2014 11:27 PM [facility] ANION GAP 14 12 - 20 mmol/L 09/27/2014 11:27 PM [facility] Blood 09/27/2014 10:4 8 PM OIL DISTRIBUTOR 09/27/2014 10:[address] [facility] [employer] [facility] [facility] - 09/27/2014 11:27 PM OIL DISTRIBUTOR Effective 04/08/2014, the Alkaline Phosphatase test method and reference range have changed. Please take this into consideration when interpreting results prior to or after this date. Rubia Burton NP CHEMISTRY ORDERABLES Final R esult [facility] # [id number] [address] [place] [address] documented in this encounter Visit Diagnoses Not on filedocumented in this encounter
--- OUTSIDE RECORDS SUMMARY | 2025-05-16 01:34 | XMS_ITS | Encounter Summary ---
Author Organization [facility] Address [address] [place] [address] Care Team Providers Care Police Commissioner Name Role Phone Unavailable Primary Care Provider Unavailabl e Encounter Details Date Type Department Care Team (Late st Contact Info) Description 06/22/2020 Lab Requisition [facility] Laboratory Services [place] [address] [place] [phone] Alex Rubio, DO NO ADDRESS ON FILE Social History Tobacco Use Types Packs/Day Years Used Date Smoking Tobacco: Every Day Cigarettes 1 37 Smokeless Tobacco: Never Alcohol Use Standard Drinks/Week Comments No 0 (1 standard drink = 0.6 oz pur e alcohol) Sex and Gender Information Value Date Recorded Sex Assigned at Not on file 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:33 AM APPLIED EXERCISE PHYSIOLOGIST Gender Identity Not on file Sexual Orientation Not on file documented as of this encounter Plan of Treatment Not on file documented as of this encounter Procedures Procedure Name Priority Date/Time Associated Diagnosis Comments HEMOGLOBIN A1C Routine 06/22/2020 1:30 PM APPLIED EXERCISE PHYSIOLOGIST TSH Routine 06/22/2020 1:29 PM APPLIED EXERCISE PHYSIOLOGIST documented in this encounter Results * (ABNORMAL) HEMOGLOBIN A1C (06/22/2020 1:30 PM APPLIED EXERCISE PHYSIOLOGIST) HEMOGLOBIN A1C 5.9(H) <=5.6 % 06/22/2020 2:17 PM APPLIED EXERCISE PHYSIOLOGIST [facility] EST. AVG GLUCOSE, A1C 123 mg/dL 06/22/2020 2:17 PM APPLIED EXERCISE PHYSIOLOGIST [facility] Blood Venipuncture / Unknown 06/22/2020 1:30 PM APPLIED EXERCISE PHYSIOLOGIST 06/22/2020 1:30 PM APPLIED EXERCISE PHYSIOLOGIST Narrative [facility] - 06/22/2020 2:17 PM APPLIED EXERCISE PHYSIOLOGIST HGB A1C INTERPRETATION NORMAL: <5.7% PRE-DIABETES: 5.7 - 6.4% DIABETES: 6.5% OR GREATER us Alex Rubio DO CHEMISTRY ORDERABLES Final Resu lt Performing Organization Address [facility]/ZIP Co de Phone Number [facility] CLIA # [id number] [address] [place] [phone] * TSH (06/22/2020 1:29 PM APPLIED EXERCISE PHYSIOLOGIST) TSH 2.95 0.27 - 4.20 uIU/mL 06/22/2020 2:14 PM APPLIED EXERCISE PHYSIOLOGIST [facility] Blood Venipuncture / Unknown 06/22/2020 1:29 PM APPLIED EXERCISE PHYSIOLOGIST 06/22/2020 1:29 PM APPLIED EXERCISE PHYSIOLOGIST us Alex Rubio DO CHEMISTRY ORDERABLES Final Resu lt Performing Organization Address City/[facility]/ZIP Co de Phone Number [facility] CLIA # [id number] [address] [place] [phone] documented in this encounter Visit Diagnoses Not on filedocumented in this encounter
--- OUTSIDE RECORDS SUMMARY | 2025-05-16 01:34 | XMS_ITS | Encounter Summary ---
Author Organization [facility] Address [address] [place] [address] Care Team Providers Care Sales Stock Associate Name Role Phone Unavailable Primary Care Provider Unavailabl e Encounter Details Date Type Department Care Team (Late st Contact Info) Description 02/08/2014 Ancillary Orders [facility] Laboratory Services [place] [address] [place] [phone] Other malaise and fatigue; Moderate or severe vision impairment, both eyes, impairment level not further specified Social History Tobacco Use Types Packs/Day Years Used Date Smoking Tobacco: Every Day Cigarettes 1 37 Smokeless Tobacco: Never Alcohol Use Standard Drinks/Week Comments No 0 (1 standard drink = 0.6 oz pur e alcohol) Sex and Gender Information Value Date Recorded Sex Assigned at Not on file 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 Gender Identity Not on file Sexual Orientation Not on file documented as of this encounter Plan of Treatment Not on file documented as of this encounter Procedures Procedure Name Priority Date/Time Associated Diagnosis Comments IMMUNOFIXATION Routine 02/08/2014 8:30 PM CDT Other malaise and fatigue [ICD-9-CM] Moderate or severe vision impairment, both eyes, impairment level not further specified [ICD-9-CM] PROTEIN ELECTROPHORESIS W/REFLEX,SERUM Routine 02/08/2014 8:30 PM CDT Other malaise and fatigue [ICD-9-CM] Moderate or severe vision impairment, both eyes, impairment level not further specified [ICD-9-CM] documented in this encounter Results * IMMUNOFIXATION (02/08/2014 8:30 PM CDT) IMMUNOFIXATION No M Band identified. Normal polyclonal immunoglobulins demonstrated. Interpreted by: Debo Guadalupe 02/10/2014 1:45 PM CDT [facility] Blood specimen (specimen) 02/08/2014 8:30 PM CDT 02/08/2014 9:18 PM CDT Elver Capone MD CHEMISTRY ORDERABLES Final Resu lt [facility] CLIA# [id number] [address] [place] [phone] * (ABNORMAL) PROTEIN ELECTROPHORESIS, SERUM (02/08/2014 8:30 PM CDT) SPE INTERP Mild Polyclonal hypergammaglob ulinemia. No monoclonal band identified. Interpreted by: Debo Guadalupe 02/10/2014 1:45 PM CDT [facility] PROTEIN TOTAL, SPE 8.60(H) 6.10 - 7.80 g/dL 02/10/2014 1:45 PM T [facility] ALBUMIN SPE 4.93 3.50 - 5.30 g/dL 02/10/2014 1:45 PM T [facility] ALPHA 1 GLOBULIN SPE .24 0.11 - 0.31 02/10/2014 1:[address] [facility] ALPHA 2 GLOBULIN SPE .96 0.58 - 1.16 g/dL 02/10/2014 1:45 PM T [facility] BETA GLOBULIN 1.10(H) 0.59 - 0.88 g/dL 02/10/2014 1:45 PM T [facility] GAMMA GLOBULIN 1.37(H) 0.50 - 1.35 g/dL 02/10/2014 1:[address] [facility] ALBUMIN %, 57.3(L) 57.4 - 65.5 % 02/10/2014 1:[address] [facility] % ALPHA 1 GLOBULIN 2.8 1.8 - 3.8 % 02/10/2014 1:[address] [facility] % ALPHA 2 GLOBULIN 11.2 9.5 - 14.3 % 02/10/2014 1:45 PM CDT [facility] % Beta Globulin 12.8(H) 9.1 - 10.9 % 02/10/2014 1:45 PM CDT [facility] % GAMMA GLOBULIN 15.9 8.2 - 16.7 % 02/10/2014 1:45 PM CDT [facility] Comment:Attention: Immunofix ation ordered at [facility] per policy per pathologist. ALBUMIN/GLOBULIN RATIO 1.34 g/dL 02/10/2014 1:45 PM CDT [facility] Blood specimen (specimen) 02/08/2014 8:30 PM CDT 02/08/2014 9:18 PM CDT us Elver Capone MD CHEMISTRY ORDERABLES Final Resu lt [facility] CLIA# [id number] [address] [place] [id number] documented in this encounter Visit Diagnoses Diagnosis Other malaise and fatigue Moderate or severe vision impairment, both eyes, impairment level not further specified documented in this encounter
--- OUTSIDE RECORDS SUMMARY | 2025-05-16 01:34 | XMS_ITS | Encounter Summary ---
Author Organization [facility] Address [address] [place] [address] Care Team Providers Care Energy Conservation Engineer Name Role Phone Unavailable Primary Care Provider Unavailabl e Encounter Details Date Type Department Care Team (Late st Contact Info) Description 06/01/2019 Lab Requisition [facility] Laboratory Services [place] [address] [place] [phone] Alex Rubio, DO NO ADDRESS ON FILE Social History Tobacco Use Types Packs/Day Years Used Date Smoking Tobacco: Every Day Cigarettes 1 37 Smokeless Tobacco: Never Alcohol Use Standard Drinks/Week Comments No 0 (1 standard drink = 0.6 oz pur e alcohol) Sex and Gender Information Value Date Recorded Sex Assigned at Not on file 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 AVG GLUCOSE, A1C 123 mg/dL 06/02/2019 1:51 AM CDT [facility] Blood Collection / Unknown 06/01/2019 9:28 PM CDT 06/02/2019 1:21 AM CDT [facility] - 06/02/2019 1:51 AM CDT HGB A1C INTERPRETATION NORMAL: <5.7% PRE-DIABETES: 5.7 - 6.4% DIABETES: 6.5% OR GREATER us Alex Rubio DO CHEMISTRY ORDERABLES Final Resu lt [facility] CLIA # [id number] [address] [place] [address] * (ABNORMAL) LIPID PANEL (06/01/2019 9:28 PM CDT) [facility] CHOLESTEROL 113 <200 mg/dL 06/02/2019 2:23 AM CDT [facility] TRIGLYCERIDE 200(H) <150 mg/dL 06/02/2019 2:23 AM CDT [facility] HDL 29(L) 40 - 59 mg/dL 06/02/2019 2:23 AM T [facility] LDL CALCULATED 44 <100 mg/dL 06/02/2019 2:23 AM T [facility] NON-HDL CHOLESTEROL 84 <130 mg/dL 06/02/2019 2:23 AM [facility] Blood Collection / Unknown 06/01/2019 9:28 PM CDT 06/02/2019 1:56 AM CDT [facility] - 06/02/2019 2:23 AM CDT TOTAL CHOLESTEROL mg/dL Desirable <200 Borderline high 200-239 High >=240 TRIGLYCERIDES mg/dL Normal <150 Borderline high 150-199 High 200-499 Very high >=500 HDL CHOLESTEROL mg/dL Low <40 Normal 40-59 Desirable >=60 NON HDL CHOLESTEROL mg/dL Optimal <130 Near Optimal 130-159 Borderline High 160-189 Very High >=190 Calculated LDL mg/dL Optimal <100 Near Optimal 100-129 Borderline High 130-159 High 160-189 Very High >=190 ATPIII Guidelines Reference Ranges for Lipid Panels (NCEP/AMA) us Alex Rubio DO CHEMISTRY ORDERABLES Final Resu lt [facility] CLIA # [id number] [address] [place] [id number] * (ABNORMAL) COMPREHENSIVE METABOLIC PANEL (06/01/2019 9:28 PM CDT) SODIUM 145 136 - 145 mmol/L 06/02/2019 2:23 AM [facility] POTASSIUM 4.0 3.5 - 5.1 mmol/L 06/02/2019 2:23 AM [facility] CHLORIDE 105 98 - 107 mmol/L 06/02/2019 2:23 AM [facility] CO2 23 22 - 29 mmol/L 06/02/2019 2:23 AM [facility] CALCIUM 9.2 8.8 - 10.2 mg/dL 06/02/2019 2:23 AM [facility] BUN 14 8 - 23 mg/dL 06/02/2019 2:23 AM [facility] CREATININE 0.96 0.67 - 1.17 mg/dL 06/02/2019 2:23 AM [facility] GLUCOSE 102(H) 74 - 99 mg/dL 06/02/2019 2:23 AM [facility] TOTAL PROTEIN 8.3 6.6 - 8.7 g/dL 06/02/2019 2:23 AM [facility] ALBUMIN 4.7 3.5 - 5.2 g/dL 06/02/2019 2:23 AM [facility] BILIRUBIN TOTAL 0.3 <=1.2 mg/dL 06/02/2019 2:23 AM [facility] ALKALINE PHOSPHATASE 85 40 - 129 U/L 06/02/2019 2:23 AM [facility] AST 22 10 - 50 U/L 06/02/2019 2:23 AM [facility] ALT 18 10 - 50 U/L 06/02/2019 2:23 AM [facility] GFR >60 >=60 mL/min/1.7 3 sq meter 06/02/2019 2:23 AM CDT [facility] Comment: eGFR has not been validated [...] GFR, >60 >=60 mL/min/1.7 3 sq meter 06/02/2019 2:23 AM CDT [facility] ANION GAP 17 12 - 20 mmol/L 06/02/2019 2:23 AM T [facility] Blood Collection / Unknown 06/01/2019 9:28 PM CDT 06/02/2019 1:56 AM CDT us Alex Rubio DO CHEMISTRY ORDERABLES Final Resu lt [facility] CLIA # [id number] [address] [place] [phone] documented in this encounter Visit Diagnoses Not on filedocumented in this encounter
--- OUTSIDE RECORDS SUMMARY | 2025-05-16 01:34 | XMS_ITS | Encounter Summary ---
Author Organization [employer] [facility] Address [address] [place] [address] Care Team Providers Care Broadcast Producer Name Role Phone Unavailable Primary Care Provider Unavailabl e Encounter Details Date Type Department Care Team (Late st Contact Info) Description 08/16/2014 Ancillary Orders [facility] Laboratory Services [place] [address] [place] [phone] Sick Social History Tobacco Use Types Packs/Day Years Used Date Smoking Tobacco: Every Day Cigarettes 1 37 Smokeless Tobacco: Never Alcohol Use Standard Drinks/Week Comments No 0 (1 standard drink = 0.6 oz pur e alcohol) Sex and Gender Information Value Date Recorded Sex Assigned at Not on file 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 Gender Identity Not on file Sexual Orientation Not on file documented as of this encounter Plan of Treatment Not on file documented as of this encounter Procedures Procedure Name Priority Date/Time Associated Diagnosis Comments CBC WITH DIFFERENTIAL Routine 08/16/2014 9:32 PM AQUATIC PHYSIOTHERAPIST Sick [ICD-9-CM] LIPID PANEL Routine 08/16/2014 9:32 PM AQUATIC PHYSIOTHERAPIST Sick [ICD-9-CM] COMPREHENSIVE METABOLIC PANEL Routine 08/16/2014 9:32 PM AQUATIC PHYSIOTHERAPIST Sick [ICD-9-CM] documented in this encounter Results * (ABNORMAL) LIPID PANEL (08/16/2014 9:32 PM AQUATIC PHYSIOTHERAPIST) CHOLESTEROL 194 130 - 200 mg/dL 08/16/2014 10:49 PM AQUATIC PHYSIOTHERAPIST [facility] TRIGLYCERIDE 302(H) 30 - 200 mg/dL 08/16/2014 10:49 PM AQUATIC PHYSIOTHERAPIST [facility] HDL 27(L) 35 - 80 mg/dL 08/16/2014 10:49 PM [facility] [employer] [facility] LDL CALCULATED 107(H) 0 - 100 mg/dL 08/16/2014 10:49 PM [facility] [employer] [facility] NON-HDL CHOLESTEROL 167 mg/dL 08/16/2014 10:49 PM [facility] [employer] [facility] Blood Collection / Unknown 08/16/2014 9:32 PM AQUATIC PHYSIOTHERAPIST 08/16/2014 9:33 PM AQUATIC PHYSIOTHERAPIST [facility] - [facility] - 08/16/2014 10:49 PM AQUATIC PHYSIOTHERAPIST TOTAL CHOLESTEROL mg/dL Desirable <200 Borderline high [...] Burton NP CHEMISTRY ORDERABLES Final R esult [facility] [employer] [facility] CLIA # [id number] [address] [place] [address] * (ABNORMAL) COMPREHENSIVE METABOLIC PANEL (08/16/2014 9:32 PM AQUATIC PHYSIOTHERAPIST) SODIUM 142 136 - 145 mmol/L 08/17/2014 12:27 AM [facility] [employer] [facility] POTASSIUM 3.8 3.5 - 5.1 mmol/L 08/17/2014 12:27 AM [facility] [employer] [facility] CHLORIDE 103 98 - 107 mmol/L 08/17/2014 12:27 AM [facility] [employer] [facility] CO2 21 21 - 32 mmol/L 08/17/2014 12:27 AM [facility] [employer] [facility] CALCIUM 9.1 8.5 - 10.1 mg/dL 08/17/2014 12:27 AM [facility] [employer] [facility] BUN 14 7 - 18 mg/dL 08/17/2014 12:27 AM [facility] [employer] [facility] CREATININE 1.10 0.60 - 1.30 mg/dL 08/17/2014 12:27 AM [employer] GLUCOSE 116(H) 74 - 106 mg/dL 08/17/2014 12:27 AM AQUATIC PHYSIOTHERAPIST [employer] TOTAL PROTEIN 8.7(H) 6.4 - 8.2 g/dL 08/17/2014 12:27 AM [employer] ALBUMIN 4.0 3.4 - 5.0 g/dL 08/17/2014 12:27 AM [employer] BILIRUBIN TOTAL 0.8 0.2 - 1.0 mg/dL 08/17/2014 12:27 AM [employer] [facility] ALKALINE PHOSPHATASE 96 46 - 116 U/L 08/17/2014 12:27 AM [facility] [place] [employer] AST 45(H) 15 - 37 U/L 08/17/2014 12:27 AM [employer] ALT 60 30 - 65 U/L 08/17/2014 12:27 AM [employer] [facility] GFR >60 >=60 mL/min/1.7 3 sq meter 08/17/2014 12:27 AM [employer] Comment: eGFR has not been validated for [...] GFR, >60 >=60 mL/min/1.7 3 sq meter 08/17/2014 12:27 AM [employer] ANION GAP 18 12 - 20 mmol/L 08/17/2014 12:27 AM [employer] Blood Collection / Unknown 08/16/2014 9:32 PM AQUATIC PHYSIOTHERAPIST 08/16/2014 9:33 PM [facility] gauzz - [facility] - 08/17/2014 12:27 AM AQUATIC PHYSIOTHERAPIST Effective 04/08/2014, the Alkaline Phosphatase test method and reference range have changed. Please take this into consideration when interpreting results prior to or after this date. us Rubia Burton NP CHEMISTRY ORDERABLES Final R esult [facility] [place] CLIA # [id number] [address] [facility] [address] [place] [address] * (ABNORMAL) CBC WITH DIFFERENTIAL (08/16/2014 9:32 PM AQUATIC PHYSIOTHERAPIST) WBC 9.4(H) 4.2 - 9.1 K/uL 08/16/2014 10:08 PM [facility] RBC 4.86 4.63 - 6.08 M/uL 08/16/2014 10:08 PM [facility] HEMOGLOBIN 15.7 13.7 - 17.5 g/dL 08/16/2014 10:08 PM [facility] [employer] [facility] HEMATOCRIT 46.1 40.1 - 51.0 % 08/16/2014 10:08 PM [facility] MCV 94.9(H) 79.0 - 92.2 fL 08/16/2014 10:08 PM [facility] MCH 32.3(H) 25.7 - 32.2 pg 08/16/2014 10:08 PM [facility] MCHC 34.1 32.3 - 36.5 g/dL 08/16/2014 10:08 PM [facility] [employer] [facility] RDW 14.1 11.0 - 14.5 % 08/16/2014 10:08 PM [facility] RDW-STDEV 46.4 36.9 - 56.9 fL 08/16/2014 10:08 PM [facility] [employer] [facility] PLATELETS 186 130 - 400 K/uL 08/16/2014 10:08 PM [facility] [employer] [facility] MPV 10.3 10.0 - 14.8 fL 08/16/2014 10:08 PM [facility] NEUTROPHILS 57 34 - 68 % 08/16/2014 10:08 PM [facility] [employer] [facility] LYMPHOCYTES 33 22 - 53 % 08/16/2014 10:08 PM [facility] [place] MONOCYTES 6 5 - 12 % 08/16/2014 10:08 PM AQUATIC PHYSIOTHERAPIST [facility] [place] EOSINOPHILS 3 1 - 7 % 08/16/2014 10:08 PM AQUATIC PHYSIOTHERAPIST [facility] [place] BASOPHILS 0 0 - 1 % 08/16/2014 10:08 PM AQUATIC PHYSIOTHERAPIST [facility] [place] NEUTROPHIL ABSOLUTE 5.35 1.78 - 5.38 K/uL 08/16/2014 10:08 PM AQUATIC PHYSIOTHERAPIST [facility] [place] LYMPHOCYTE ABSOLUTE 3.06 1.20 - 3.40 K/uL 08/16/2014 10:08 PM AQUATIC PHYSIOTHERAPIST [facility] [place] MONOCYTE ABSOLUTE 0.58 0.30 - 0.82 K/uL 08/16/2014 10:08 PM AQUATIC PHYSIOTHERAPIST [facility] [place] EOSINOPHIL ABSOLUTE 0.30 0.04 - 0.54 K/uL 08/16/2014 10:08 PM AQUATIC PHYSIOTHERAPIST [facility] [place] BASOPHILS ABSOLUTE 0.03 0.01 - 0.08 K/uL 08/16/2014 10:08 PM AQUATIC PHYSIOTHERAPIST [facility] [place] IMMATURE GRANULOCYTES 0 % 08/16/2014 10:08 PM AQUATIC PHYSIOTHERAPIST [facility] [place] IMMATURE GRANULOCYTES ABSOLUTE 0.03 K/uL 08/16/2014 10:08 PM AQUATIC PHYSIOTHERAPIST [facility] [place] Blood Collection / Unknown 08/16/2014 9:32 PM AQUATIC PHYSIOTHERAPIST 08/16/2014 9:33 PM AQUATIC PHYSIOTHERAPIST us Rubia Burton NP HEMATOLOGY ORDERABLES Final Result [facility] [place] CLIA # [id number] [address] [place] [address] documented in this encounter Visit Diagnoses Diagnosis Sick Other unknown and unspecified cause of morbidity or mortality documented in this encounter
--- OUTSIDE RECORDS SUMMARY | 2025-05-16 01:34 | XMS_ITS | Encounter Summary ---
Author Organization [facility] Address [address] [place] [address] Care Team Providers Care System Planning Engineer Name Role Phone Unavailable Primary Care Provider Unavailabl e Encounter Details Date Type Department Care Team (Latest Contact Info) Description 12/07/2004 Outpatient Historical [facility] [address] 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
--- OUTSIDE RECORDS SUMMARY | 2025-05-16 01:34 | XMS_ITS | Encounter Summary ---
Author Organization [facility] Address [address] [place] [address] Care Team Providers Care Lead Painter Name Role Phone Unavailable Primary Care Provider Unavailabl e Encounter Details Date Type Department Care Team (Late st Contact Info) Description 05/20/2017 Lab Requisition [facility] Laboratory Services [place] [address] [place] [phone] Alex Rubio, DO NO ADDRESS ON FILE Social History Tobacco Use Types Packs/Day Years Used Date Smoking Tobacco: Every Day Cigarettes 1 37 Smokeless Tobacco: Never Alcohol Use Standard Drinks/Week Comments No 0 (1 standard drink = 0.6 oz pur e alcohol) Sex and Gender Information Value Date Recorded Sex Assigned at Not on file 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 Gender Identity Not on file Sexual Orientation Not on file documented as of this encounter Plan of Treatment Not on file documented as of this encounter Procedures Procedure Name Priority Date/Time Associated Diagnosis Comments HEMOGLOBIN A1C Routine 05/20/2017 8:40 PM CDT LIPID PANEL Routine 05/20/2017 8:40 PM CDT documented in this encounter Results * (ABNORMAL) LIPID PANEL (05/20/2017 8:40 PM CDT) CHOLESTEROL 140 <200 mg/dL 05/21/2017 12:40 AM CDT [facility] TRIGLYCERIDE 277(H) <150 mg/dL 05/21/2017 12:40 AM CDT [facility] HDL 28(L) 40 - 59 mg/dL 05/21/2017 12:40 AM CDT [facility] LDL CALCULATED 57 <100 mg/dL 05/21/2017 12:40 AM CDT [facility] NON-HDL CHOLESTEROL 112 <130 mg/dL 05/21/2017 12:40 AM CDT [facility] Blood Venipuncture / Unknown 05/20/2017 8:40 PM CDT 05/21/2017 12:03 AM CDT Narrative [facility] - 05/21/2017 12:40 AM CDT TOTAL CHOLESTEROL mg/dL Desirable <200 [...] ORDERABLES Final Resu lt Performing Organization Address City/[facility]/ZIP Co de Phone Number [facility] CLIA # [id number] [address] [place] [address] * (ABNORMAL) HEMOGLOBIN A1C (05/20/2017 8:40 PM CDT) HEMOGLOBIN A1C 6.2(H) 4.8 - 5.9 % 05/20/2017 11:46 PM CDT [facility] EST. AVG GLUCOSE, A1C 131 mg/dL 05/20/2017 11:46 PM CDT [facility] Blood Venipuncture / Unknown 05/20/2017 8:40 PM CDT 05/20/2017 10:31 PM CDT us Alex Rubio DO CHEMISTRY ORDERABLES Final Resu lt [facility] CLIA # [id number] [address] [place] [address] documented in this encounter Visit Diagnoses Not on filedocumented in this encounter
--- OUTSIDE RECORDS SUMMARY | 2025-05-16 01:34 | XMS_ITS | Encounter Summary ---
Author Organization [facility] Address [address] [place] [address] Care Team Providers Care Rn L And D Name Role Phone Unavailable Primary Care Provider Unavailabl e Encounter Details Date Type Department Care Team (Late st Contact Info) Description 12/17/2016 Lab Requisition [facility] Laboratory Services [place] [address] [place] [phone] Elver Capone MD [address], [place] [address] Social History Tobacco Use Types Packs/Day Years Used Date Smoking Tobacco: Every Day Cigarettes 1 37 Smokeless Tobacco: Never Alcohol Use Standard Drinks/Week Comments No 0 (1 standard drink = 0.6 oz pur e alcohol) Sex and Gender Information Value Date Recorded Sex Assigned at Not on file 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 TRIGLYCERIDE 153(H) <150 mg/dL 12/17/2016 10:32 PM CDT [facility] HDL 29(L) 40 - 59 mg/dL 12/17/2016 10:32 PM CDT [facility] LDL CALCULATED 69 <100 mg/dL 12/17/2016 10:32 PM CDT [facility] NON-HDL CHOLESTEROL 100 <130 mg/dL 12/17/2016 10:32 PM CDT [facility] Blood 12/17/2016 8:21 PM CDT 12/17/2016 9:43 PM CDT Narrative [facility] - 12/17/2016 10:32 PM CDT TOTAL CHOLESTEROL mg/dL Desirable <200 [...] Reference Ranges for Lipid Panels (NCEP/AMA) us Elver Capone MD CHEMISTRY ORDERABLES Final Resu lt Performing Organization Address City/[facility]/ZIP Co de Phone Number [facility] CLIA # [id number] [address] [place] [address] * (ABNORMAL) HEMOGLOBIN A1C (12/17/2016 8:21 PM CDT) HEMOGLOBIN A1C 6.1(H) 4.8 - 5.9 % 12/17/2016 10:22 PM CDT [facility] EST. AVG GLUCOSE, A1C 128 mg/dL 12/17/2016 10:22 PM CDT [facility] Blood 12/17/2016 8:21 PM CDT 12/17/2016 9:43 PM CDT Elver Capone MD CHEMISTRY ORDERABLES Final Resu lt Performing Organization Address City/[facility]/ZIP Co de Phone Number [facility] CLIA # [id number] [address] [place] [address] documented in this encounter Visit Diagnoses Not on filedocumented in this encounter
--- OUTSIDE RECORDS SUMMARY | 2025-05-16 01:34 | XMS_ITS | Encounter Summary ---
Author Organization [facility] Address [address] Lara: Epic Prelude ADT [place]OL [place] [address] Care Team Providers Care Filler Sifter Machine Name Role Phone Unavailable Primary Care Provider Unavailabl e Encounter Details Date Type Department Care Team (Latest Contact Info) Description 05/15/2025 Travel Social History Tobacco Use Types Packs/Day Years [...] worry about transportation for future doctor visits, picker tender medication, etc.? 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
--- OUTSIDE RECORDS SUMMARY | 2025-05-16 01:34 | XMS_ITS | Encounter Summary ---
Author Organization [facility] Address [address] [place] [address] Care Team Providers Care Health Information Manager Name Role Phone Unavailable Primary Care Provider Unavailabl e Encounter Details Date Type Department Care Team (Late st Contact Info) Description 05/09/2021 Lab Requisition [facility] Laboratory Services [place] [address] [place] [phone] Antonette Altman, BESSEMER CONVERTER OPERATOR [address] [place] [phone] Social History Tobacco Use Types Packs/Day Years Used Date Smoking Tobacco: Every Day Cigarettes Smokeless Tobacco: Never Alcohol Use Standard Drinks/Week Comments No 0 (1 standard drink = 0.6 oz pur e alcohol) Sex and Gender Information Value Date Recorded Sex Assigned at Not on file 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 Gender Identity Not on file Sexual Orientation Not on file documented as of this encounter Plan of Treatment Not on file documented as of this encounter Procedures Procedure Name Priority Date/Time Associated Diagnosis Comments TSH Routine 05/08/2021 7:00 PM CDT HEMOGLOBIN A1C Routine 05/08/2021 7:00 PM CDT LIPID PANEL Routine 05/08/2021 7:00 PM CDT COMPREHENSIVE METABOLIC PANEL Routine 05/08/2021 7:00 PM CDT documented in this encounter Results * TSH (05/08/2021 7:00 PM CDT) TSH 2.51 0.27 - 4.20 uIU/mL 05/09/2021 7:49 AM CDT [facility] Blood Collection / Unknown 05/08/2021 7:00 PM CDT 05/09/2021 6:24 AM CDT Antonette Altman BESSEMER CONVERTER OPERATOR CHEMISTRY ORDERABLES Final Result [facility] CLIA # [id number] [address] [place] [address] * (ABNORMAL) LIPID PANEL (05/08/2021 7:00 PM CDT) CHOLESTEROL 101 <200 mg/dL 05/09/2021 7:49 AM CDT [facility] TRIGLYCERIDE 210(H) <150 mg/dL 05/09/2021 7:49 AM T [facility] HDL 26(L) 40 - 59 mg/dL 05/09/2021 7:49 AM CDT [facility] LDL CALCULATED 33 <100 mg/dL 05/09/2021 7:49 AM CDT [facility] NON-HDL CHOLESTEROL 75 <130 mg/dL 05/09/2021 7:49 AM T [facility] Blood Collection / Unknown 05/08/2021 7:00 PM CDT 05/09/2021 6:24 AM CDT Narrative [facility] - 05/09/2021 7:49 AM CDT TOTAL CHOLESTEROL mg/dL Desirable <200 [...] Reference Ranges for Lipid Panels (NCEP/AMA) . Antonette Wagner [facility] CHEMISTRY ORDERABLES Final Result Performing Organization Address [facility]/[place] Phone [id number] [address] [place] [address] * (ABNORMAL) HEMOGLOBIN A1C (05/08/2021 7:00 PM CDT) HEMOGLOBIN A1C 5.9(H) <=5.6 % 05/09/2021 7:49 AM CDT [facility] EST. AVG GLUCOSE, A1C 123 mg/dL 05/09/2021 7:49 AM CDT [facility] Blood Collection / Unknown 05/08/2021 7:00 PM CDT 05/09/2021 6:24 AM CDT Narrative [facility] - 05/09/2021 7:49 AM CDT HGB A1C INTERPRETATION NORMAL: <5.7% PRE-DIABETES: 5.7 - 6.4% DIABETES: 6.5% OR GREATER [facility] CHEMISTRY ORDERABLES Final Result Performing Organization Address [id number] [address] [place] [phone] * COMPREHENSIVE METABOLIC PANEL (05/08/2021 7:00 PM CDT) SODIUM 137 136 - 145 mmol/L 05/09/2021 7:49 AM CDT [facility] POTASSIUM 5.1 3.5 - 5.1 mmol/L 05/09/2021 7:49 AM CDT [facility] CHLORIDE 103 98 - 107 mmol/L 05/09/2021 7:49 AM CDT [facility] CO2 22 22 - 29 mmol/L 05/09/2021 7:49 AM [facility] CALCIUM 9.2 8.8 - 10.2 mg/dL 05/09/2021 7:49 AM [facility] BUN 12 8 - 23 mg/dL 05/09/2021 7:49 AM [facility] CREATININE 1.08 0.67 - 1.17 mg/dL 05/09/2021 7:49 AM [facility] GLUCOSE 83 74 - 99 mg/dL 05/09/2021 7:49 AM [facility] TOTAL PROTEIN 8.0 6.6 - 8.7 g/dL 05/09/2021 7:49 AM [facility] ALBUMIN 4.5 3.5 - 5.2 g/dL 05/09/2021 7:49 AM [facility] BILIRUBIN TOTAL 0.5 <=1.2 mg/dL 05/09/2021 7:49 AM [facility] ALKALINE PHOSPHATASE 88 40 - 129 U/L 05/09/2021 7:49 AM [facility] AST 27 10 - 50 U/L 05/09/2021 7:49 AM [facility] ALT 21 10 - 50 U/L 05/09/2021 7:49 AM [facility] GFR >60 mL/min/1.7 3 sq meter 05/09/2021 7:49 AM [facility] Comment: eGFR has not been validated [...] refer to the GFR result. GFR, >60 mL/min/1.7 3 sq meter 05/09/2021 7:49 AM [facility] ANION GAP 12 12 - 20 mmol/L 05/09/2021 7:49 AM [facility] Blood Collection / Unknown 05/08/2021 7:00 PM CDT 05/09/2021 6:24 AM CDT us Antonette Altman BESSEMER CONVERTER OPERATOR CHEMISTRY ORDERABLES Final Result [facility] CLIA # [id number] [address] [place] [address] documented in this encounter Visit Diagnoses Not on filedocumented in this encounter Additional Health Concerns Infection Onset Date Last Indicated Resolved Time R/O COVID-19 08/15/2022 08/15/2022 08/15/2022 11:4 6 AM PAVING 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
--- OUTSIDE RECORDS SUMMARY | 2025-05-16 01:34 | XMS_ITS | Encounter Summary ---
Author Organization [facility] Address [address] [place] [address] Care Team Providers Care Storage Garage Attendant Name Role Phone Unavailable Primary Care Provider Unavailabl e Encounter Details Date Type Department Care Team (Late st Contact Info) Description 06/02/2018 Lab Requisition [facility] General Laboratory Services [place] [address] [place] [phone] Huber Kaminski MD NO ADDRESS ON FILE Social History Tobacco Use Types Packs/Day Years Used Date Smoking Tobacco: Every Day Cigarettes 1 37 Smokeless Tobacco: Never Alcohol Use Standard Drinks/Week Comments No 0 (1 standard drink = 0.6 oz pur e alcohol) Sex and Gender Information Value Date Recorded Sex Assigned at Not on file 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:33 AM VALVER Gender Identity Not on file Sexual Orientation Not on file documented as of this encounter Plan of Treatment Not on file documented as of this encounter Procedures Procedure Name Priority Date/Time Associated Diagnosis Comments BRAIN NATRIURETIC PEPTIDE, BNP OR PROBNP Routine 06/02/2018 8:50 PM CDT COMPREHENSIVE METABOLIC PANEL Routine 06/02/2018 8:50 PM CDT documented in this encounter Results * (ABNORMAL) COMPREHENSIVE METABOLIC PANEL (06/02/2018 8:50 PM CDT) SODIUM 141 136 - 145 mmol/L 06/02/2018 11:35 PM CDT [facility] POTASSIUM 4.2 3.5 - 5.1 mmol/L 06/02/2018 11:35 PM CDT [facility] CHLORIDE 103 98 - 107 mmol/L 06/02/2018 11:35 PM CDT [facility] CO2 22 22 - 29 mmol/L 06/02/2018 11:35 PM [facility] CALCIUM 9.6 8.8 - 10.2 mg/dL 06/02/2018 11:35 PM [facility] BUN 15 8 - 23 mg/dL 06/02/2018 11:35 PM [facility] CREATININE 0.97 0.67 - 1.17 mg/dL 06/02/2018 11:35 PM [facility] GLUCOSE 114(H) 74 - 99 mg/dL 06/02/2018 11:35 PM [facility] TOTAL PROTEIN 8.1 6.6 - 8.7 g/dL 06/02/2018 11:35 PM [facility] ALBUMIN 4.6 3.5 - 5.2 g/dL 06/02/2018 11:35 PM [facility] BILIRUBIN TOTAL 0.5 0.0 - 1.2 mg/dL 06/02/2018 11:35 PM [facility] ALKALINE PHOSPHATASE 84 40 - 129 U/L 06/02/2018 11:35 PM [facility] AST 36 10 - 50 U/L 06/02/2018 11:35 PM [facility] ALT 30 10 - 50 U/L 06/02/2018 11:35 PM [facility] GFR >60 >=60 mL/min/1.7 3 sq meter 06/02/2018 11:35 PM [facility] Comment: eGFR has not been validated [...] GFR, >60 >=60 mL/min/1.7 3 sq meter 06/02/2018 11:35 PM [facility] ANION GAP 16 12 - 20 mmol/L 06/02/2018 11:35 PM CDT [facility] Blood Collection / Unknown 06/02/2018 8:50 PM CDT 06/02/2018 10:41 PM CDT Huber Kaminski MD CHEMISTRY ORDERABLES Final Result Performing Organization Address City/[facility]/ZIP Co de Phone Number [facility] CLIA # [id number] [address] [place] [phone] * BRAIN NATRIURETIC PEPTIDE, BNP OR PROBNP (06/02/2018 8:50 PM CDT) PROBNP, N TERMINAL 38 0 - 125 pg/mL 06/02/2018 11:35 PM CDT [facility] Blood Collection / Unknown 06/02/2018 8:50 PM CDT 06/02/2018 10:41 PM CDT Huber Kaminski MD CHEMISTRY ORDERABLES Final Result [facility] CLIA # [id number] [address] [place] [address] [phone] documented in this encounter Visit Diagnoses Not on filedocumented in this encounter
--- OUTSIDE RECORDS SUMMARY | 2025-05-16 01:34 | XMS_ITS | Encounter Summary ---
Author Organization [facility] Address [address] [place] [address] Care Team Providers Care Manager Administrative Name Role Phone Unavailable Primary Care Provider Unavailabl e Encounter Details Date Type Department Care Team (Late st Contact Info) Description 09/09/2017 Lab Requisition [facility] Laboratory Services [place] [address] [place] [phone] Audra Soler, PATTERN MAKER [address] [place] [address] Social History Tobacco Use Types Packs/Day Years Used Date Smoking Tobacco: Every Day Cigarettes 1 37 Smokeless Tobacco: Never Alcohol Use Standard Drinks/Week Comments No 0 (1 standard drink = 0.6 oz pur e alcohol) Sex and Gender Information Value Date Recorded Sex Assigned at Not on file 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:33 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 Gender Identity Not on file Sexual Orientation Not on file documented as of this encounter Plan of Treatment Not on file documented as of this encounter Procedures Procedure Name Priority Date/Time Associated Diagnosis Comments CBC WITH DIFFERENTIAL Routine 09/09/2017 7:51 PM FISH RO[employer] PROCESSOR HEMOGLOBIN A1C Routine 09/09/2017 7:51 PM FISH ROE PROCESSOR LIPID PANEL Routine 09/09/2017 7:51 PM FISH ROE PROCESSOR COMPREHENSIVE METABOLIC PANEL Routine 09/09/2017 7:51 PM FISH ROE PROCESSOR documented in this encounter Results * (ABNORMAL) CBC WITH DIFFERENTIAL (09/09/2017 7:51 PM FISH ROE PROCESSOR) WBC 10.6(H) 4.2 - 9.1 K/uL 09/09/2017 8:54 PM [facility] RBC 5.22 4.63 - 6.08 M/uL 09/09/2017 8:54 PM [facility] HEMOGLOBIN 16.6 13.7 - 17.5 g/dL 09/09/2017 8:54 PM [facility] HEMATOCRIT 48.9 40.1 - 51.0 % 09/09/2017 8:54 PM [facility] MCV 93.7(H) 79.0 - 92.2 fL 09/09/2017 8:54 PM [facility] MCH 31.8 25.7 - 32.2 pg 09/09/2017 8:54 PM [facility] MCHC 33.9 32.3 - 36.5 g/dL 09/09/2017 8:54 PM [facility] RDW 13.6 11.0 - 14.5 % 09/09/2017 8:54 PM [facility] RDW-STDEV 44.6 36.9 - 56.9 fL 09/09/2017 8:54 PM [facility] PLATELETS 203 130 - 400 K/uL 09/09/2017 8:54 PM [facility] MPV 9.7(L) 10.0 - 14.8 fL 09/09/2017 8:54 PM [facility] NEUTROPHILS 67 34 - 68 % 09/09/2017 8:54 PM [facility] LYMPHOCYTES 24 22 - 53 % 09/09/2017 8:54 PM [facility] MONOCYTES 6 5 - 12 % 09/09/2017 8:54 PM [facility] EOSINOPHILS 2 1 - 7 % 09/09/2017 8:54 PM [facility] BASOPHILS 0 0 - 1 % 09/09/2017 8:54 PM [facility] IMMATURE GRANULOCYTES 0 % 09/09/2017 8:54 PM [facility] NEUTROPHIL ABSOLUTE 7.16(H) 1.78 - 5.38 K/uL 09/09/2017 8:54 PM [facility] LYMPHOCYTE ABSOLUTE 2.58 1.20 - 3.40 K/uL 09/09/2017 8:54 PM [facility] MONOCYTE ABSOLUTE 0.59 0.30 - 0.82 K/uL 09/09/2017 8:54 PM [facility] EOSINOPHIL ABSOLUTE 0.25 0.04 - 0.54 K/uL 09/09/2017 8:54 PM [facility] BASOPHILS ABSOLUTE 0.03 0.01 - 0.08 K/uL 09/09/2017 8:54 PM [facility] IMMATURE GRANULOCYTES ABSOLUTE 0.03 K/uL 09/09/2017 8:54 PM [facility] Blood Venipuncture / Unknown 09/09/2017 7:51 PM FISH ROE PROCESSOR 09/09/2017 8:39 PM FISH ROE PROCESSOR Audra Yayo [facility] HEMATOLOGY ORDERABLES Fin al Result Performing Organization Address [facility]/ZIP Co de Phone Number [facility] [id number] [address] [place] [address] * (ABNORMAL) HEMOGLOBIN A1C (09/09/2017 7:51 PM FISH ROE PROCESSOR) HEMOGLOBIN A1C 7.0(H) 4.8 - 5.9 % 09/09/2017 9:06 PM [facility] EST. AVG GLUCOSE, A1C 154 mg/dL 09/09/2017 9:06 PM [facility] Blood Venipuncture / Unknown 09/09/2017 7:51 PM FISH ROE PROCESSOR 09/09/2017 8:39 PM FISH ROE PROCESSOR [facility] CHEMISTRY ORDERABLES Samia l Result Performing Organization Address [facility]/State/ZIP Co de Phone Number [facility] CLIA # [id number] [address] [place] [address] * COMPREHENSIVE METABOLIC PANEL (09/09/2017 7:51 PM FISH ROE PROCESSOR) SODIUM 141 136 - 145 mmol/L 09/09/2017 9:05 PM [facility] POTASSIUM 3.9 3.5 - 5.1 mmol/L 09/09/2017 9:05 PM [facility] CHLORIDE 100 98 - 107 mmol/L 09/09/2017 9:05 PM [facility] CO2 26 22 - 29 mmol/L 09/09/2017 9:05 PM [facility] CALCIUM 10.0 8.8 - 10.2 mg/dL 09/09/2017 9:05 PM [facility] BUN 11 8 - 23 mg/dL 09/09/2017 9:05 PM [facility] CREATININE 1.00 0.67 - 1.17 mg/dL 09/09/2017 9:05 PM [facility] GLUCOSE 101 74 - 106 mg/dL 09/09/2017 9:05 PM [facility] TOTAL PROTEIN 8.7 6.6 - 8.7 g/dL 09/09/2017 9:05 PM [facility] ALBUMIN 4.7 3.5 - 5.2 g/dL 09/09/2017 9:05 PM [facility] BILIRUBIN TOTAL 0.5 0.0 - 1.2 mg/dL 09/09/2017 9:05 PM [facility] ALKALINE PHOSPHATASE 87 40 - 129 U/L 09/09/2017 9:05 PM [facility] AST 32 10 - 50 U/L 09/09/2017 9:05 PM [facility] ALT 29 10 - 50 U/L 09/09/2017 9:05 PM [facility] GFR >60 >=60 mL/min/1.7 3 sq meter 09/09/2017 9:05 PM [facility] Comment: eGFR has not been [...] GFR, >60 >=60 mL/min/1.7 3 sq meter 09/09/2017 9:05 PM [facility] ANION GAP 15 12 - 20 mmol/L 09/09/2017 9:05 PM [facility] Blood Venipuncture / Unknown 09/09/2017 7:51 PM FISH ROE PROCESSOR 09/09/2017 8:39 PM FISH ROE PROCESSOR Audra Soler [facility] CHEMISTRY ORDERABLES Samia l Result [facility] CLIA # [id number] [address] [place] [address] * (ABNORMAL) LIPID PANEL (09/09/2017 7:51 PM FISH ROE PROCESSOR) CHOLESTEROL 137 <200 mg/dL 09/09/2017 9:06 PM [facility] TRIGLYCERIDE 288(H) <150 mg/dL 09/09/2017 9:06 PM [facility] HDL 29(L) 40 - 59 mg/dL 09/09/2017 9:06 PM [facility] LDL CALCULATED 50 <100 mg/dL 09/09/2017 9:06 PM [facility] NON-HDL CHOLESTEROL 108 <130 mg/dL 09/09/2017 9:06 PM [facility] Blood Venipuncture / Unknown 09/09/2017 7:51 PM FISH ROE PROCESSOR 09/09/2017 8:39 PM FISH ROE PROCESSOR Narrative [facility] - 09/09/2017 9:06 PM FISH ROE PROCESSOR TOTAL CHOLESTEROL mg/dL Desirable <200 Borderline high [...] Guidelines Reference Ranges for Lipid Panels (NCEP/AMA) Audra Soler PATTERN MAKER CHEMISTRY ORDERABLES Samia lares Result [facility] [id number] [address] [place] [address] documented in this encounter Visit Diagnoses Not on filedocumented in this encounter
--- OUTSIDE RECORDS SUMMARY | 2025-05-16 01:34 | XMS_ITS | Encounter Summary ---
Author Organization [facility] Address [address] [place] [address] Care Team Providers Care Relay Technician Name Role Phone Unavailable Primary Care Provider Unavailabl e Encounter Details Date Type Department Care Team (Late st Contact Info) Description 09/10/2016 Lab Requisition [facility] General Laboratory Services [place] [address] [place] [phone] Alex Rubio, DO NO ADDRESS ON FILE Social History Tobacco Use Types Packs/Day Years Used Date Smoking Tobacco: Every Day Cigarettes 1 37 Smokeless Tobacco: Never Alcohol Use Standard Drinks/Week Comments No 0 (1 standard drink = 0.6 oz pur e alcohol) Sex and Gender Information Value Date Recorded Sex Assigned at Not on file 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:33 AM [employer] Gender Identity Not on file Sexual Orientation Not on file documented as of this encounter Plan of Treatment Not on file documented as of this encounter Procedures Procedure Name Priority Date/Time Associated Diagnosis Comments ALT Routine 09/10/2016 8:47 PM [employer] HEMOGLOBIN A1C Routine 09/10/2016 8:47 PM [employer] LIPID PANEL Routine 09/10/2016 8:47 PM [employer] BASIC METABOLIC PANEL Routine 09/10/2016 8:47 PM [employer] documented in this encounter Results * (ABNORMAL) LIPID PANEL (09/10/2016 8:47 PM [employer]) CHOLESTEROL 254(H) <200 mg/dL 09/10/2016 10:56 PM [employer] [facility] TRIGLYCERIDE 271(H) <150 mg/dL 09/10/2016 10:56 PM [employer] [facility] HDL 25(L) 40 - 59 mg/dL 09/10/2016 10:56 PM [facility] LDL CALCULATED 175(H) <100 mg/dL 09/10/2016 10:56 PM [facility] NON-HDL CHOLESTEROL 229(H) <130 mg/dL 09/10/2016 10:56 PM [facility] Blood Venipuncture / Unknown 09/10/2016 8:47 PM [employer] 09/10/2016 10:32 PM [employer] [employer] Narrative [facility] - 09/10/2016 10:56 PM [employer] TOTAL CHOLESTEROL mg/dL Desirable <200 Borderline high [...] Rubio DO CHEMISTRY ORDERABLES Final Resu lt [facility] CLIA # [id number] [address] [place] [phone] * HEMOGLOBIN A1C (09/10/2016 8:47 PM [employer]) HEMOGLOBIN A1C 5.9 4.8 - 5.9 % 09/10/2016 10:48 PM [employer] [facility] EST. AVG GLUCOSE, A1C 123 mg/dL 09/10/2016 10:48 PM [facility] Blood Venipuncture / Unknown 09/10/2016 8:47 PM [facility] 09/10/2016 10:19 PM [facility] [employer] us Alex Rubio DO CHEMISTRY ORDERABLES Final Resu lt [facility] CLIA # [id number] [address] [place] [phone] * (ABNORMAL) BASIC METABOLIC PANEL (09/10/2016 8:47 PM [facility]) SODIUM 141 136 - 145 mmol/L 09/10/2016 10:56 PM [facility] POTASSIUM 4.3 3.5 - 5.1 mmol/L 09/10/2016 10:56 PM [facility] CHLORIDE 103 98 - 107 mmol/L 09/10/2016 10:56 PM [facility] CO2 21(L) 22 - 29 mmol/L 09/10/2016 10:56 PM [facility] CALCIUM 9.8 8.8 - 10.2 mg/dL 09/10/2016 10:56 PM [facility] BUN 21 8 - 23 mg/dL 09/10/2016 10:56 PM [facility] CREATININE 0.92 0.67 - 1.17 mg/dL 09/10/2016 10:56 PM [facility] GLUCOSE 98 74 - 106 mg/dL 09/10/2016 10:56 PM [facility] GFR >60 >=60 mL/min/1.7 3 sq meter 09/10/2016 10:56 PM [facility] Comment: eGFR has not been validated [...] GFR, >60 >=60 mL/min/1.7 3 sq meter 09/10/2016 10:56 PM [facility] ANION GAP 17 12 - 20 mmol/L 09/10/2016 10:56 PM [facility] Blood Venipuncture / Unknown 09/10/2016 8:47 PM [facility] [employer] 09/10/2016 10:32 PM [facility] [employer] us Alex Rubio DO CHEMISTRY ORDERABLES Final Resu lt Performing Organization Address City/[facility]/ZIP Co de Phone Number [facility] CLIA # [id number] [address] [place] [phone] * ALT (09/10/2016 8:47 PM [facility]) ALT 31 10 - 50 U/L 09/10/2016 10:56 PM [facility] Blood Venipuncture / Unknown 09/10/2016 8:47 PM [facility] 09/10/2016 10:32 PM [facility] [employer] us Alex Rubio DO CHEMISTRY ORDERABLES Final Resu lt Performing Organization Address City/[facility]/ZIP Co de Phone Number [facility] CLIA # [id number] [address] [place] [address] [phone] documented in this encounter Visit Diagnoses Not on filedocumented in this encounter
--- OUTSIDE RECORDS SUMMARY | 2025-05-16 01:34 | XMS_ITS | Encounter Summary ---
Author Organization [facility] Address [address] [place] [address] Care Team Providers Care Elementary School Teacher Name Role Phone Unavailable Primary Care Provider Unavailabl e Encounter Details Date Type Department Care Team (Late st Contact Info) Description 12/02/2018 Lab Requisition [facility] Laboratory Services [place] [address] [place] [address] Elver Hanson NP [address] [place] [address] Social History Tobacco Use Types Packs/Day Years Used Date Smoking Tobacco: Every Day Cigarettes 1 37 Smokeless Tobacco: Never Alcohol Use Standard Drinks/Week Comments No 0 (1 standard drink = 0.6 oz pur e alcohol) Sex and Gender Information Value Date Recorded Sex Assigned at Not on file 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 Gender Identity Not on file Sexual Orientation Not on file documented as of this encounter Plan of Treatment Not on file documented as of this encounter Procedures Procedure Name Priority Date/Time Associated Diagnosis Comments CBC WITH DIFFERENTIAL Routine 12/01/2018 10:00 PM CDT BRAIN NATRIURETIC PEPTIDE, BNP OR PROBNP Routine 12/01/2018 10:00 PM CDT HEMOGLOBIN A1C Routine 12/01/2018 10:00 PM CDT LIPID PANEL Routine 12/01/2018 10:00 PM CDT COMPREHENSIVE METABOLIC PANEL Routine 12/01/2018 10:00 PM CDT documented in this encounter Results * (ABNORMAL) CBC WITH DIFFERENTIAL (12/01/2018 10:00 PM CDT) WBC 9.1 4.2 - 9.1 K/uL 12/02/2018 2:33 AM [facility] RBC 5.00 4.63 - 6.08 M/uL 12/02/2018 2:33 AM [facility] HEMOGLOBIN 15.5 13.7 - 17.5 g/dL 12/02/2018 2:33 AM [facility] HEMATOCRIT 47.8 40.1 - 51.0 % 12/02/2018 2:33 AM [facility] MCV 95.6(H) 79.0 - 92.2 fL 12/02/2018 2:33 AM [facility] MCH 31.0 25.7 - 32.2 pg 12/02/2018 2:33 AM [facility] MCHC 32.4 32.3 - 36.5 g/dL 12/02/2018 2:33 AM [facility] RDW 14.1 11.0 - 14.5 % 12/02/2018 2:33 AM [facility] RDW-STDEV 47.6 36.9 - 56.9 fL 12/02/2018 2:33 AM [facility] PLATELETS 187 130 - 400 K/uL 12/02/2018 2:33 AM [facility] MPV 10.1 10.0 - 14.8 fL 12/02/2018 2:33 AM [facility] NEUTROPHILS 63 34 - 68 % 12/02/2018 2:33 AM [facility] LYMPHOCYTES 27 22 - 53 % 12/02/2018 2:33 AM [facility] MONOCYTES 6 5 - 12 % 12/02/2018 2:33 AM [facility] EOSINOPHILS 4 1 - 7 % 12/02/2018 2:33 AM [facility] BASOPHILS 0 0 - 1 % 12/02/2018 2:33 AM [facility] IMMATURE GRANULOCYTES 0 % 12/02/2018 2:33 AM [facility] NEUTROPHIL ABSOLUTE 5.70(H) 1.78 - 5.38 K/uL 12/02/2018 2:33 AM CDT [facility] LYMPHOCYTE ABSOLUTE 2.48 1.20 - 3.40 K/uL 12/02/2018 2:33 AM CDT [facility] MONOCYTE ABSOLUTE 0.52 0.30 - 0.82 K/uL 12/02/2018 2:33 AM CDT [facility] EOSINOPHIL ABSOLUTE 0.32 0.04 - 0.54 K/uL 12/02/2018 2:33 AM CDT [facility] BASOPHILS ABSOLUTE 0.02 0.01 - 0.08 K/uL 12/02/2018 2:33 AM CDT [facility] IMMATURE GRANULOCYTES ABSOLUTE 0.03 K/uL 12/02/2018 2:33 AM CDT [facility] Blood Collection / Unknown 12/01/2018 10:00 PM CDT 12/02/2018 2:29 AM CDT Elver Hanson POOL ATTENDANT HEMATOLOGY ORDERABLES Final Res ult Performing Organization Address City/[facility]/ZIP Co de Phone Number [facility] CLIA # [id number] [address] [place] [phone] * BRAIN NATRIURETIC PEPTIDE, BNP OR PROBNP (12/01/2018 10:00 PM CDT) PROBNP, N TERMINAL 50 0 - 125 pg/mL 12/02/2018 2:38 AM CDT [facility] Blood Collection / Unknown 12/01/2018 10:00 PM CDT 12/02/2018 2:10 AM CDT Elver Hanson POOL ATTENDANT CHEMISTRY ORDERABLES Final Resu lt Performing Organization Address City/[facility]/ZIP Co de Phone Number [facility] CLIA # [id number] [address] [place] [address] * COMPREHENSIVE METABOLIC PANEL (12/01/2018 10:00 PM CDT) SODIUM 144 136 - 145 mmol/L 12/02/2018 2:38 AM [facility] POTASSIUM 4.2 3.5 - 5.1 mmol/L 12/02/2018 2:38 AM [facility] CHLORIDE 105 98 - 107 mmol/L 12/02/2018 2:38 AM [facility] CO2 23 22 - 29 mmol/L 12/02/2018 2:38 AM [facility] CALCIUM 9.4 8.8 - 10.2 mg/dL 12/02/2018 2:38 AM [facility] BUN 12 8 - 23 mg/dL 12/02/2018 2:38 AM [facility] CREATININE 0.96 0.67 - 1.17 mg/dL 12/02/2018 2:38 AM [facility] GLUCOSE 97 74 - 99 mg/dL 12/02/2018 2:38 AM [facility] TOTAL PROTEIN 8.0 6.6 - 8.7 g/dL 12/02/2018 2:38 AM [facility] ALBUMIN 4.6 3.5 - 5.2 g/dL 12/02/2018 2:38 AM [facility] BILIRUBIN TOTAL 0.4 0.0 - 1.2 mg/dL 12/02/2018 2:38 AM [facility] ALKALINE PHOSPHATASE 80 40 - 129 U/L 12/02/2018 2:38 AM [facility] AST 25 10 - 50 U/L 12/02/2018 2:38 AM [facility] ALT 22 10 - 50 U/L 12/02/2018 2:38 AM [facility] GFR >60 >=60 mL/min/1.7 3 sq meter 12/02/2018 2:38 AM [facility] Comment: eGFR has not been [...] GFR, >60 >=60 mL/min/1.7 3 sq meter 12/02/2018 2:38 AM CDT [facility] ANION GAP 16 12 - 20 mmol/L 12/02/2018 2:38 AM CDT [facility] Blood Collection / Unknown 12/01/2018 10:00 PM CDT 12/02/2018 2:10 AM CDT Elver Hanson NP CHEMISTRY ORDERABLES Final Resu lt [facility] CLIA # [id number] [address] [place] [phone] * (ABNORMAL) LIPID PANEL (12/01/2018 10:00 PM CDT) CHOLESTEROL 107 <200 mg/dL 12/02/2018 2:38 AM CDT [facility] TRIGLYCERIDE 186(H) <150 mg/dL 12/02/2018 2:38 AM CDT [facility] HDL 26(L) 40 - 59 mg/dL 12/02/2018 2:38 AM CDT [facility] LDL CALCULATED 44 <100 mg/dL 12/02/2018 2:38 AM CDT [facility] NON-HDL CHOLESTEROL 81 <130 mg/dL 12/02/2018 2:38 AM CDT [facility] Blood Collection / Unknown 12/01/2018 10:00 PM CDT 12/02/2018 2:10 AM CDT Narrative [facility] - 12/02/2018 2:38 AM CDT TOTAL CHOLESTEROL mg/dL Desirable <200 [...] Guidelines Reference Ranges for Lipid Panels (NCEP/AMA) Elver Hanson NP CHEMISTRY ORDERABLES Final Resu lt Performing Organization Address [facility] Co de Phone Number [facility] CLIA # [id number] [address] [place] [phone] * (ABNORMAL) HEMOGLOBIN A1C (12/01/2018 10:00 PM CDT) HEMOGLOBIN A1C 6.5(H) 4.8 - 5.9 % 12/02/2018 2:47 AM CDT [facility] EST. AVG GLUCOSE, A1C 140 mg/dL 12/02/2018 2:47 AM CDT [facility] Blood Collection / Unknown 12/01/2018 10:00 PM CDT 12/02/2018 2:30 AM CDT Narrative [facility] - 12/02/2018 2:47 AM CDT HGB A1C INTERPRETATION NORMAL: <5.7% PRE-DIABETES: 5.7 - 6.4% DIABETES: 6.5% OR GREATER Elver Hanson NP CHEMISTRY ORDERABLES Final Resu lt Performing Organization Address [place]/[facility] Co de Phone Number [facility] CLIA # [id number] [address] [place] [id number] documented in this encounter Visit Diagnoses Not on filedocumented in this encounter
--- OUTSIDE RECORDS SUMMARY | 2025-05-16 01:34 | XMS_ITS | Encounter Summary ---
Author Organization [facility] Address [address] [place] [address] Care Team Providers Care Nub Card Tender Name Role Phone Unavailable Primary Care Provider Unavailabl e Encounter Details Date Type Department Care Team (Latest Contact Info) Description 01/08/2005 Outpatient Historical [facility] Cardiology- [place] [address] [place] [address] Cristy Allen, POLY AREA SUPERVISOR [address] [place] [address] Old myocardial infarct (Primary Dx); CORON ATHEROSCL [place] CORON VESSEL; MIXED HYPERLIPIDEMIA Social History Tobacco Use Types Packs/Day Years Used Date Smoking Tobacco: Never Assessed Sex and Gender Information Value Date Recorded Sex Assigned at Not on file 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:33 AM DOLLY PUSHER Gender Identity Not on file Sexual Orientation Not on file documented as of this encounter Plan of Treatment Not on file documented as of this encounter Visit Diagnoses Diagnosis Old myocardial infarct- Primary Old myocardial infarction Coronary atherosclerosis of [place] coronary artery Mixed hyperlipidemia documented in this encounter
--- OUTSIDE RECORDS SUMMARY | 2025-05-16 01:34 | XMS_ITS | Encounter Summary ---
Author Organization [facility] Address [address] [place] [address] Care Team Providers Care Solar Manufacturer'S Representative Name Role Phone Unavailable Primary Care Provider Unavailabl e Encounter Details Date Type Department Care Team (Late st Contact Info) Description 10/03/2020 Lab Requisition [facility] Laboratory Services [place] [address] [place] [id number] Alex Rubio, NO ADDRESS ON FILE Social History Tobacco Use Types Packs/Day Years Used Date Smoking Tobacco: Every Day Cigarettes 1 37 Smokeless Tobacco: Never Alcohol Use Standard Drinks/Week Comments No 0 (1 standard drink = 0.6 oz pur e alcohol) Sex and Gender Information Value Date Recorded Sex Assigned at Not on file 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:33 AM CANNING MACHINE OPERATOR Gender Identity Not on file Sexual Orientation Not on file documented as of this encounter Plan of Treatment Not on file documented as of this encounter Procedures Procedure Name Priority Date/Time Associated Diagnosis Comments CBC WITH DIFFERENTIAL Routine 10/03/2020 7:28 PM CANNING MACHINE OPERATOR TSH Routine 10/03/2020 7:28 PM CANNING MACHINE OPERATOR HEMOGLOBIN A1C Routine 10/03/2020 7:28 PM CANNING MACHINE OPERATOR LIPID PANEL Routine 10/03/2020 7:28 PM CANNING MACHINE OPERATOR COMPREHENSIVE METABOLIC PANEL Routine 10/03/2020 7:28 PM CANNING MACHINE OPERATOR documented in this encounter Results * TSH (10/03/2020 7:28 PM CANNING MACHINE OPERATOR) TSH 2.52 0.27 - 4.20 uIU/mL 10/03/2020 8:35 PM CANNING MACHINE OPERATOR [facility] Blood Collection / Unknown 10/03/2020 7:28 PM CANNING MACHINE OPERATOR 10/03/2020 7:28 PM CANNING MACHINE OPERATOR us Alex Rubio DO CHEMISTRY ORDERABLES Final Resu lt [facility] CLIA # [id number] [address] [place] [phone] * (ABNORMAL) LIPID PANEL (10/03/2020 7:28 PM CANNING MACHINE OPERATOR) CHOLESTEROL 109 <200 mg/dL 10/03/2020 8:35 PM [facility] TRIGLYCERIDE 266(H) <150 mg/dL 10/03/2020 8:35 PM [facility] HDL 26(L) 40 - 59 mg/dL 10/03/2020 8:35 PM [facility] LDL CALCULATED 30 <100 mg/dL 10/03/2020 8:35 PM [facility] NON-HDL CHOLESTEROL 83 <130 mg/dL 10/03/2020 8:35 PM [facility] Blood Collection / Unknown 10/03/2020 7:28 PM CANNING MACHINE OPERATOR 10/03/2020 7:28 PM CANNING MACHINE OPERATOR Narrative [facility] - 10/03/2020 8:35 PM CANNING MACHINE OPERATOR TOTAL CHOLESTEROL mg/dL Desirable <200 Borderline high [...] ORDERABLES Final Resu lt Performing Organization Address City/[facility]/ZIP Co de Phone Number [facility] CLIA # [id number] [address] [place] [phone] * (ABNORMAL) HEMOGLOBIN A1C (10/03/2020 7:28 PM CANNING MACHINE OPERATOR) Pathologist [facility] HEMOGLOBIN A1C 6.2(H) <=5.6 % 10/03/2020 8:38 PM CANNING MACHINE OPERATOR [facility] EST. AVG GLUCOSE, A1C 131 mg/dL 10/03/2020 8:38 PM [facility] Blood Collection / Unknown 10/03/2020 7:28 PM CANNING MACHINE OPERATOR 10/03/2020 7:28 PM CANNING MACHINE OPERATOR Narrative [facility] - 10/03/2020 8:38 PM CANNING MACHINE OPERATOR HGB A1C INTERPRETATION NORMAL: <5.7% PRE-DIABETES: 5.7 - 6.4% DIABETES: 6.5% OR GREATER us Alex Rubio DO CHEMISTRY ORDERABLES Final Resu lt Performing Organization Address City/[facility]/ZIP Co de Phone Number [facility] CLIA # [id number] [address] [place] [phone] * (ABNORMAL) COMPREHENSIVE METABOLIC PANEL (10/03/2020 7:28 PM CANNING MACHINE OPERATOR) [facility] SODIUM 140 136 - 145 mmol/L 10/03/2020 8:35 PM [facility] POTASSIUM 4.2 3.5 - 5.1 mmol/L 10/03/2020 8:35 PM [facility] CHLORIDE 102 98 - 107 mmol/L 10/03/2020 8:35 PM [facility] CO2 24 22 - 29 mmol/L 10/03/2020 8:35 PM [facility] CALCIUM 9.5 8.8 - 10.2 mg/dL 10/03/2020 8:35 PM [facility] BUN 18 8 - 23 mg/dL 10/03/2020 8:35 PM [facility] CREATININE 1.14 0.67 - 1.17 mg/dL 10/03/2020 8:35 PM [facility] GLUCOSE 121(H) 74 - 99 mg/dL 10/03/2020 8:35 PM [facility] TOTAL PROTEIN 8.3 6.6 - 8.7 g/dL 10/03/2020 8:35 PM [facility] ALBUMIN 4.5 3.5 - 5.2 g/dL 10/03/2020 8:35 PM [facility] BILIRUBIN TOTAL 0.4 <=1.2 mg/dL 10/03/2020 8:35 PM [facility] ALKALINE PHOSPHATASE 95 40 - 129 U/L 10/03/2020 8:35 PM [facility] AST 24 10 - 50 U/L 10/03/2020 8:35 PM [facility] ALT 17 10 - 50 U/L 10/03/2020 8:35 PM [facility] GFR >60 >=60 mL/min/1.7 3 sq meter 10/03/2020 8:35 PM [facility] Comment: eGFR has not been validated [...] GFR, >60 >=60 mL/min/1.7 3 sq meter 10/03/2020 8:35 PM [facility] ANION GAP 14 12 - 20 mmol/L 10/03/2020 8:35 PM [facility] Blood Collection / Unknown 10/03/2020 7:28 PM CANNING MACHINE OPERATOR 10/03/2020 7:28 PM CANNING MACHINE OPERATOR us Alex Rubio DO CHEMISTRY ORDERABLES Final Resu lt [facility] CLIA # [id number] [address] [place] [address]130 * (ABNORMAL) CBC WITH DIFFERENTIAL (10/03/2020 7:28 PM CANNING MACHINE OPERATOR) WBC 9.9(H) 4.2 - 9.1 K/uL 10/03/2020 8:35 PM [facility] RBC 5.14 4.63 - 6.08 M/uL 10/03/2020 8:35 PM [facility] HEMOGLOBIN 16.0 13.7 - 17.5 g/dL 10/03/2020 8:35 PM [facility] HEMATOCRIT 48.7 40.1 - 51.0 % 10/03/2020 8:35 PM [facility] MCV 94.7(H) 79.0 - 92.2 fL 10/03/2020 8:35 PM [facility] MCH 31.1 25.7 - 32.2 pg 10/03/2020 8:35 PM [facility] MCHC 32.9 32.3 - 36.5 g/dL 10/03/2020 8:35 PM [facility] RDW 13.5 11.0 - 14.5 % 10/03/2020 8:35 PM [facility] RDW-STDEV 47.9 36.9 - 56.9 fL 10/03/2020 8:35 PM [facility] PLATELETS 205 130 - 400 K/uL 10/03/2020 8:35 PM [facility] MPV 10.5 10.0 - 14.8 fL 10/03/2020 8:35 PM [facility] NEUTROPHILS 55 34 - 68 % 10/03/2020 8:35 PM [facility] LYMPHOCYTES 31 22 - 53 % 10/03/2020 8:35 PM [facility] MONOCYTES 7 5 - 12 % 10/03/2020 8:35 PM [facility] EOSINOPHILS 6 1 - 7 % 10/03/2020 8:35 PM [facility] BASOPHILS 0 0 - 1 % 10/03/2020 8:35 PM [facility] IMMATURE GRANULOCYTES 0 % 10/03/2020 8:35 PM [facility] NEUTROPHIL ABSOLUTE 5.49(H) 1.78 - 5.38 K/uL 10/03/2020 8:35 PM [facility] LYMPHOCYTE ABSOLUTE 3.06 1.20 - 3.40 K/uL 10/03/2020 8:35 PM [facility] MONOCYTE ABSOLUTE 0.69 0.30 - 0.82 K/uL 10/03/2020 8:35 PM [facility] EOSINOPHIL ABSOLUTE 0.63(H) 0.04 - 0.54 K/uL 10/03/2020 8:35 PM [facility] BASOPHILS ABSOLUTE 0.02 0.01 - 0.08 K/uL 10/03/2020 8:35 PM [facility] IMMATURE GRANULOCYTES ABSOLUTE 0.04 K/uL 10/03/2020 8:35 PM [facility] Blood Collection / Unknown 10/03/2020 7:28 PM CANNING MACHINE OPERATOR 10/03/2020 7:28 PM CANNING MACHINE OPERATOR us Alex Rubio DO HEMATOLOGY ORDERABLES Final Res ult [facility] CLIA # [id number] [address] [place] [address] documented in this encounter Visit Diagnoses Not on filedocumented in this encounter
--- OUTSIDE RECORDS SUMMARY | 2025-05-16 01:34 | XMS_ITS | Encounter Summary ---
Author Organization [employer] [facility] Address [address] [place] [address] Care Team Providers Care City Tax Auditor Name Role Phone Unavailable Primary Care Provider Unavailabl e Encounter Details Date Type Department Care Team (Late st Contact Info) Description 01/04/2015 Lab Requisition [facility] Laboratory Services [place] [address] [place] [phone] Alex Rubio, DO NO ADDRESS ON FILE Social History Tobacco Use Types Packs/Day Years Used Date Smoking Tobacco: Every Day Cigarettes 1 37 Smokeless Tobacco: Never Alcohol Use Standard Drinks/Week Comments No 0 (1 standard drink = 0.6 oz pur e alcohol) Sex and Gender Information Value Date Recorded Sex Assigned at Not on file 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:33 AM EQUALIZING SAW OPERATOR Gender Identity Not on file Sexual Orientation Not on file documented as of this encounter Plan of Treatment Not on file documented as of this encounter Procedures Procedure Name Priority Date/Time Associated Diagnosis Comments HEMOGLOBIN A1C Routine 01/03/2015 9:00 PM CDT LIPID PANEL Routine 01/03/2015 9:00 PM CDT COMPREHENSIVE METABOLIC PANEL Routine 01/03/2015 9:00 PM CDT documented in this encounter Results * (ABNORMAL) LIPID PANEL (01/03/2015 9:00 PM CDT) CHOLESTEROL 125(L) 130 - 200 mg/dL 01/04/2015 12:49 AM CDT [facility]OR[facility] TRIGLYCERIDE 522(H) 30 - 200 mg/dL 01/04/2015 12:49 AM CDT [facility] HDL 25(L) 35 - 80 mg/dL 01/04/2015 12:49 AM CDT [facility] [employer] [facility] LDL CALCULATED 0 - 100 mg/dL 01/04/2015 12:49 AM CDT [facility] [employer] [facility] Comment:Calculated LDL is no t accurate when the Triglyceride value exceeds 400. NON-HDL CHOLESTEROL 100 mg/dL 01/04/2015 12:49 AM CDT [facility] [employer] [facility] Blood 01/03/2015 9:00 PM CDT 01/04/2015 12:01 AM CDT Narrative [facility] [employer] [facility] - 01/04/2015 12:49 AM CDT TOTAL CHOLESTEROL mg/dL Desirable <200 [...] Very high >=190 Based on AHA/NCEP Guidelines us Alex Rubio DO CHEMISTRY ORDERABLES Final Resu lt [facility] [employer] [facility] CLIA # [id number] [address] [place] [address] * (ABNORMAL) HEMOGLOBIN A1C (01/03/2015 9:00 PM CDT) HEMOGLOBIN A1C 10.0(H) 4.5 - 6.2 % 01/04/2015 1:30 AM CDT [facility] [employer] [facility] EST. AVG GLUCOSE, A1C 240 mg/dL 01/04/2015 1:30 AM CDT [facility] [employer] [facility] Blood 01/03/2015 9:00 PM CDT 01/04/2015 12:01 AM CDT Alex Rubio DO CHEMISTRY ORDERABLES Final Resu lt [facility] [employer] [facility] CLIA # [id number] [address] [place] [address]9668 * (ABNORMAL) COMPREHENSIVE METABOLIC PANEL (01/03/2015 9:00 PM CDT) SODIUM 136 136 - 145 mmol/L 01/04/2015 12:49 AM [facility] LABORATORY [facility] POTASSIUM 3.9 3.5 - 5.1 mmol/L 01/04/2015 12:49 AM [facility] LABORATORY [facility] CHLORIDE 101 98 - 107 mmol/L 01/04/2015 12:49 AM [facility] LABORATORY [facility] CO2 24 21 - 32 mmol/L 01/04/2015 12:49 AM [facility] CALCIUM 8.7 8.5 - 10.1 mg/dL 01/04/2015 12:49 AM [facility] BUN 12 7 - 18 mg/dL 01/04/2015 12:49 AM [facility] CREATININE 1.10 0.60 - 1.30 mg/dL 01/04/2015 12:49 AM [facility] GLUCOSE 295(H) 74 - 106 mg/dL 01/04/2015 12:49 AM [facility] TOTAL PROTEIN 8.5(H) 6.4 - 8.2 g/dL 01/04/2015 12:49 AM [facility] ALBUMIN 4.0 3.4 - 5.0 g/dL 01/04/2015 12:49 AM [facility] LABORATORY [facility] BILIRUBIN TOTAL 0.7 0.2 - 1.0 mg/dL 01/04/2015 12:49 AM [facility] LABORATORY [facility] ALKALINE PHOSPHATASE 109 46 - 116 U/L 01/04/2015 12:49 AM [facility] LABORATORY [facility] AST 29 15 - 37 U/L 01/04/2015 12:49 AM [facility] LABORATORY [facility] ALT 29(L) 30 - 65 U/L 01/04/2015 12:49 AM [facility] LABORATORY [facility] GFR >60 >=60 mL/min/1.7 3 sq meter 01/04/2015 12:49 AM [facility] LABORATORY [facility] Comment: eGFR has not been [...] GFR, >60 >=60 mL/min/1.7 3 sq meter 01/04/2015 12:49 AM CDT [employer] [facility] ANION GAP 11(L) 12 - 20 mmol/L 01/04/2015 12:49 AM [employer] [facility] Blood 01/03/2015 9:00 PM CDT 01/04/2015 12:01 AM CDT Narrative [facility] LABORATORY [facility] - 01/04/2015 12:49 AM CDT Effective 04/08/2014, the Alkaline Phosphatase test method and reference range have changed. Please take this into consideration when interpreting results prior to or after this date. us Alex Rubio DO CHEMISTRY ORDERABLES Final Resu lt [facility] [employer] [id number] [address] [place] [address] documented in this encounter Visit Diagnoses Not on filedocumented in this encounter
--- OUTSIDE RECORDS SUMMARY | 2025-05-16 01:34 | XMS_ITS | Encounter Summary ---
Author Organization [facility] Address [address] [place] [address] Care Team Providers Care Tangled Yarn Spool Straightener Name Role Phone Unavailable Primary Care Provider Unavailabl e Encounter Details Date Type Department Care Team (Late st Contact Info) Description 02/28/2016 Lab Requisition [facility] General Laboratory Services [place] [address] [place] [address] Elver Hanson, NARENDRA [address] [place] [address] Social History Tobacco Use Types Packs/Day Years Used Date Smoking Tobacco: Every Day Cigarettes 1 37 Smokeless Tobacco: Never Alcohol Use Standard Drinks/Week Comments No 0 (1 standard drink = 0.6 oz pur e alcohol) Sex and Gender Information Value Date Recorded Sex Assigned at Not on file 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 Gender Identity Not on file Sexual Orientation Not on file documented as of this encounter Plan of Treatment Not on file documented as of this encounter Procedures Procedure Name Priority Date/Time Associated Diagnosis Comments HEMOGLOBIN A1C Routine 02/27/2016 7:50 PM CDT LIPID PANEL Routine 02/27/2016 7:50 PM CDT COMPREHENSIVE METABOLIC PANEL Routine 02/27/2016 7:50 PM CDT documented in this encounter Results * (ABNORMAL) LIPID PANEL (02/27/2016 7:50 PM CDT) CHOLESTEROL 131 <200 mg/dL 02/28/2016 1:40 AM CDT [facility] TRIGLYCERIDE 386(H) <150 mg/dL 02/28/2016 1:40 AM CDT [facility] HDL 23(L) 40 - 59 mg/dL 02/28/2016 1:40 AM CDT [facility] LDL CALCULATED 31 <100 mg/dL 02/28/2016 1:40 AM CDT [facility] NON-HDL CHOLESTEROL 108 <130 mg/dL 02/28/2016 1:40 AM CDT [facility] Blood 02/27/2016 7:50 PM CDT 02/28/2016 12:55 AM CDT Narrative [facility] - 02/28/2016 1:40 AM CDT TOTAL CHOLESTEROL mg/dL Desirable <200 [...] Very high >=220 Based on AHA/NCEP Guidelines us Elver Hanson PITTING MACHINE OPERATOR CHEMISTRY ORDERABLES Final Resu lt [facility] CLIA # [id number] [address] [place] [address]3984 * (ABNORMAL) HEMOGLOBIN A1C (02/27/2016 7:50 PM CDT) HEMOGLOBIN A1C 6.7(H) 4.8 - 5.9 % 02/28/2016 1:43 AM CDT [facility] EST. AVG GLUCOSE, A1C 146 mg/dL 02/28/2016 1:43 AM CDT [facility] Blood 02/27/2016 7:50 PM CDT 02/28/2016 12:55 AM CDT Elver Hanson PITTING MACHINE OPERATOR CHEMISTRY ORDERABLES Final Resu lt [facility] CLIA # [id number] [address] [place] [address] 13353 * (ABNORMAL) COMPREHENSIVE METABOLIC PANEL (02/27/2016 7:50 PM CDT) SODIUM 141 136 - 145 mmol/L 02/28/2016 1:[address] [facility] POTASSIUM 4.0 3.5 - 5.1 mmol/L 02/28/2016 1:[address] [facility] CHLORIDE 102 98 - 107 mmol/L 02/28/2016 1:[address] [facility] CO2 21(L) 22 - 29 mmol/L 02/28/2016 1:[address] [facility] CALCIUM 9.7 8.8 - 10.2 mg/dL 02/28/2016 1:[address] [facility] BUN 17 8 - 23 mg/dL 02/28/2016 1:[address] [facility] CREATININE 0.92 0.67 - 1.17 mg/dL 02/28/2016 1:[address] [facility] GLUCOSE 98 74 - 106 mg/dL 02/28/2016 1:[address] [facility] TOTAL PROTEIN 8.4 6.6 - 8.7 g/dL 02/28/2016 1:[address] [facility] ALBUMIN 4.7 3.5 - 5.2 g/dL 02/28/2016 1:[address] [facility] BILIRUBIN TOTAL 0.4 0.0 - 1.2 mg/dL 02/28/2016 1:[address] [facility] ALKALINE PHOSPHATASE 73 40 - 129 U/L 02/28/2016 1:[address] [facility] AST 35 10 - 50 U/L 02/28/2016 1:[address] [facility] ALT 29 10 - 50 U/L 02/28/2016 1:[address] [facility] GFR >60 >=60 mL/min/1.7 3 sq meter 02/28/2016 1:[address] [facility] Comment: eGFR has not been validated [...] GFR, >60 >=60 mL/min/1.7 3 sq meter 02/28/2016 1:41 AM CDT [facility] ANION GAP 18 12 - 20 mmol/L 02/28/2016 1:41 AM CDT [facility] Blood 02/27/2016 7:50 PM CDT 02/28/2016 12:55 AM CDT us Elver Hanson NP CHEMISTRY ORDERABLES Final Resu lt [facility] CLIA # [id number] [address] [place] [address] documented in this encounter Visit Diagnoses Not on filedocumented in this encounter
--- OUTSIDE RECORDS SUMMARY | 2025-05-16 01:34 | XMS_ITS | Encounter Summary ---
Author Organization [facility] Address [address] [place] [address] Care Team Providers Care Rocket Engine Tester Name Role Phone Unavailable Primary Care Provider Unavailabl e Encounter Details Date Type Department Care Team (Late st Contact Info) Description 12/23/2017 Lab Requisition [facility] General Laboratory Services [place] [address] [place] [phone] Alex Rubio, DO NO ADDRESS ON FILE Social History Tobacco Use Types Packs/Day Years Used Date Smoking Tobacco: Every Day Cigarettes 1 37 Smokeless Tobacco: Never Alcohol Use Standard Drinks/Week Comments No 0 (1 standard drink = 0.6 oz pur e alcohol) Sex and Gender Information Value Date Recorded Sex Assigned at Not on file 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 Gender Identity Not on file Sexual Orientation Not on file documented as of this encounter Plan of Treatment Not on file documented as of this encounter Procedures Procedure Name Priority Date/Time Associated Diagnosis Comments HEMOGLOBIN A1C Routine 12/23/2017 8:00 PM CDT LIPID PANEL Routine 12/23/2017 8:00 PM CDT COMPREHENSIVE METABOLIC PANEL Routine 12/23/2017 8:00 PM CDT documented in this encounter Results * COMPREHENSIVE METABOLIC PANEL (12/23/2017 8:00 PM CDT) SODIUM 142 136 - 145 mmol/L 12/23/2017 9:52 PM CDT [facility] POTASSIUM 3.9 3.5 - 5.1 mmol/L 12/23/2017 9:52 PM CDT [facility] CHLORIDE 101 98 - 107 mmol/L 12/23/2017 9:52 PM [facility] CO2 23 22 - 29 mmol/L 12/23/2017 9:52 PM [facility] CALCIUM 9.5 8.8 - 10.2 mg/dL 12/23/2017 9:52 PM [facility] BUN 15 8 - 23 mg/dL 12/23/2017 9:52 PM [facility] CREATININE 1.09 0.67 - 1.17 mg/dL 12/23/2017 9:52 PM [facility] GLUCOSE 96 74 - 106 mg/dL 12/23/2017 9:52 PM [facility] TOTAL PROTEIN 8.0 6.6 - 8.7 g/dL 12/23/2017 9:52 PM [facility] ALBUMIN 4.7 3.5 - 5.2 g/dL 12/23/2017 9:52 PM [facility] BILIRUBIN TOTAL 0.4 0.0 - 1.2 mg/dL 12/23/2017 9:52 PM [facility] ALKALINE PHOSPHATASE 84 40 - 129 U/L 12/23/2017 9:52 PM [facility] AST 22 10 - 50 U/L 12/23/2017 9:52 PM [facility] ALT 20 10 - 50 U/L 12/23/2017 9:52 PM [facility] GFR >60 >=60 mL/min/1.7 3 sq meter 12/23/2017 9:52 PM [facility] Comment: eGFR has not been validated [...] GFR, >60 >=60 mL/min/1.7 3 sq meter 12/23/2017 9:52 PM [facility] ANION GAP 18 12 - 20 mmol/L 12/23/2017 9:52 PM CDT [facility] Blood Collection / Unknown 12/23/2017 8:00 PM CDT 12/23/2017 8:53 PM CDT us Alex Rubio DO CHEMISTRY ORDERABLES Final Resu lt Performing Organization Address City/[facility]/ZIP Co de Phone Number [facility] CLIA # [id number] [address] [place] [address] * (ABNORMAL) HEMOGLOBIN A1C (12/23/2017 8:00 PM CDT) HEMOGLOBIN A1C 6.6(H) 4.8 - 5.9 % 12/23/2017 9:47 PM CDT [facility] EST. AVG GLUCOSE, A1C 143 mg/dL 12/23/2017 9:47 PM CDT [facility] Blood Collection / Unknown 12/23/2017 8:00 PM CDT 12/23/2017 8:53 PM CDT Narrative [facility] - 12/23/2017 9:47 PM CDT HGB A1C INTERPRETATION NORMAL: <5.7% PRE-DIABETES: 5.7 - 6.4% DIABETES: 6.5% OR GREATER us Alex Rubio DO CHEMISTRY ORDERABLES Final Resu lt [facility] CLIA # [id number] [address] [place] [id number] * (ABNORMAL) LIPID PANEL (12/23/2017 8:00 PM CDT) CHOLESTEROL 115 <200 mg/dL 12/23/2017 9:52 PM CDT [facility] TRIGLYCERIDE 231(H) <150 mg/dL 12/23/2017 9:52 PM CDT [facility] HDL 24(L) 40 - 59 mg/dL 12/23/2017 9:52 PM CDT [facility] LDL CALCULATED 45 <100 mg/dL 12/23/2017 9:52 PM CDT [facility] NON-HDL CHOLESTEROL 91 <130 mg/dL 12/23/2017 9:52 PM CDT [facility] Blood Collection / Unknown 12/23/2017 8:00 PM CDT 12/23/2017 8:53 PM CDT Narrative [facility] - 12/23/2017 9:52 PM CDT TOTAL CHOLESTEROL mg/dL Desirable <200 [...] Rubio DO CHEMISTRY ORDERABLES Final Resu lt [facility] CLIA # [id number] [address] [address] documented in this encounter Visit Diagnoses Not on filedocumented in this encounter
--- OUTSIDE RECORDS SUMMARY | 2025-05-16 01:34 | XMS_ITS | Encounter Summary ---
Author Organization [place] [employer] [facility] Address [address] [place] [address] Care Team Providers Care Oral And Maxillofacial Surgeon Name Role Phone Unavailable Primary Care Provider Unavailabl e Encounter Details Date Type Department Care Team (Late st Contact Info) Description 08/22/2015 Lab Requisition [facility] Services [place] [address] [place] [phone] Alex Rubio, DO NO ADDRESS ON FILE Social History Tobacco Use Types Packs/Day Years Used Date Smoking Tobacco: Every Day Cigarettes 1 37 Smokeless Tobacco: Never Alcohol Use Standard Drinks/Week Comments No 0 (1 standard drink = 0.6 oz pur e alcohol) Sex and Gender Information Value Date Recorded Sex Assigned at Not on file 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:33 AM SENIOR SOLUTIONS ENGINEER Gender Identity Not on file Sexual Orientation Not on file documented as of this encounter Plan of Treatment Not on file documented as of this encounter Procedures Procedure Name Priority Date/Time Associated Diagnosis Comments HEMOGLOBIN A1C Routine 08/22/2015 7:30 PM SENIOR SOLUTIONS ENGINEER LIPID PANEL Routine 08/22/2015 7:30 PM SENIOR SOLUTIONS ENGINEER COMPREHENSIVE METABOLIC PANEL Routine 08/22/2015 7:30 PM SENIOR SOLUTIONS ENGINEER documented in this encounter Results * (ABNORMAL) LIPID PANEL (08/22/2015 7:30 PM SENIOR SOLUTIONS ENGINEER) CHOLESTEROL 100 <200 mg/dL 08/22/2015 10:51 PM SENIOR SOLUTIONS ENGINEER [facility] TRIGLYCERIDE 239(H) <150 mg/dL 08/22/2015 10:51 PM SENIOR SOLUTIONS ENGINEER [facility] HDL 25(L) 40 - 59 mg/dL 08/22/2015 10:51 PM SENIOR SOLUTIONS ENGINEER [facility] LDL CALCULATED 27 <100 mg/dL 08/22/2015 10:51 PM SENIOR SOLUTIONS ENGINEER [facility] NON-HDL CHOLESTEROL 75 <130 mg/dL 08/22/2015 10:51 PM [facility] Blood 08/22/2015 7:30 PM SENIOR SOLUTIONS ENGINEER 08/22/2015 9:02 PM SENIOR SOLUTIONS ENGINEER Narrative [facility] - 08/22/2015 10:51 PM SENIOR SOLUTIONS ENGINEER TOTAL CHOLESTEROL mg/dL Desirable <200 Borderline high [...] Rubio DO CHEMISTRY ORDERABLES Final Resu lt [facility] CLIA # [id number] [address] [place] [address] * (ABNORMAL) HEMOGLOBIN A1C (08/22/2015 7:30 PM SENIOR SOLUTIONS ENGINEER) HEMOGLOBIN A1C 6.6(H) 4.8 - 5.9 % 08/22/2015 10:51 PM [facility] [employer] [facility] EST. AVG GLUCOSE, A1C 143 mg/dL 08/22/2015 10:51 PM [facility] [employer] [facility] Blood 08/22/2015 7:30 PM SENIOR SOLUTIONS ENGINEER 08/22/2015 9:02 PM SENIOR SOLUTIONS ENGINEER Alex Rubio DO CHEMISTRY ORDERABLES Final Resu lt [facility] CLIA # [id number] [address] [place] [address] * COMPREHENSIVE METABOLIC PANEL (08/22/2015 7:30 PM SENIOR SOLUTIONS ENGINEER) SODIUM 142 136 - 145 mmol/L 08/22/2015 10:51 PM [facility] POTASSIUM 4.2 3.5 - 5.1 mmol/L 08/22/2015 10:51 PM [facility] CHLORIDE 102 98 - 107 mmol/L 08/22/2015 10:51 PM [facility] CO2 24 22 - 29 mmol/L 08/22/2015 10:51 PM [facility] CALCIUM 9.4 8.8 - 10.2 mg/dL 08/22/2015 10:51 PM [facility] BUN 14 8 - 23 mg/dL 08/22/2015 10:51 PM [facility] CREATININE 0.92 0.67 - 1.17 mg/dL 08/22/2015 10:51 PM [facility] GLUCOSE 98 74 - 106 mg/dL 08/22/2015 10:51 PM [facility] TOTAL PROTEIN 8.7 6.6 - 8.7 g/dL 08/22/2015 10:51 PM [facility] ALBUMIN 4.9 3.5 - 5.2 g/dL 08/22/2015 10:51 PM [facility] BILIRUBIN TOTAL 0.5 0.0 - 1.2 mg/dL 08/22/2015 10:51 PM [facility] ALKALINE PHOSPHATASE 77 40 - 129 U/L 08/22/2015 10:51 PM [facility] AST 28 10 - 50 U/L 08/22/2015 10:51 PM [facility] ALT 23 10 - 50 U/L 08/22/2015 10:51 PM [facility] GFR >60 >=60 mL/min/1.7 3 sq meter 08/22/2015 10:51 PM [facility] [employer] [facility] Comment: eGFR has not been validated for [...] GFR, >60 >=60 mL/min/1.7 3 sq meter 08/22/2015 10:51 PM SENIOR SOLUTIONS ENGINEER [facility] [place] ANION GAP 16 12 - 20 mmol/L 08/22/2015 10:51 PM SENIOR SOLUTIONS ENGINEER [facility] Blood 08/22/2015 7:30 PM SENIOR SOLUTIONS ENGINEER 08/22/2015 9:02 PM SENIOR SOLUTIONS ENGINEER us Alex Rubio DO CHEMISTRY ORDERABLES Final Resu lt [employer] [facility] [place] CLIA # [id number] [address] [place] [address] documented in this encounter Visit Diagnoses Not on filedocumented in this encounter
--- OUTSIDE RECORDS SUMMARY | 2025-05-16 01:34 | XMS_ITS | Encounter Summary ---
Author Organization [facility] Address [address] [place] [address] Care Team Providers Care Swabber Name Role Phone Unavailable Primary Care Provider Unavailabl e Encounter Details Date Type Department Care Team (Late st Contact Info) Description 06/04/2016 Lab Requisition [facility] Laboratory Services [place] [address] [place] [phone] Alex Rubio, DO NO ADDRESS ON FILE Social History Tobacco Use Types Packs/Day Years Used Date Smoking Tobacco: Every Day Cigarettes 1 37 Smokeless Tobacco: Never Alcohol Use Standard Drinks/Week Comments No 0 (1 standard drink = 0.6 oz pur e alcohol) Sex and Gender Information Value Date Recorded Sex Assigned at Not on file 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 Gender Identity Not on file Sexual Orientation Not on file documented as of this encounter Plan of Treatment Not on file documented as of this encounter Procedures Procedure Name Priority Date/Time Associated Diagnosis Comments HEMOGLOBIN A1C Routine 06/04/2016 7:44 PM CDT LIPID PANEL Routine 06/04/2016 7:44 PM CDT COMPREHENSIVE METABOLIC PANEL Routine 06/04/2016 7:44 PM CDT documented in this encounter Results * (ABNORMAL) LIPID PANEL (06/04/2016 7:44 PM CDT) CHOLESTEROL 112 <200 mg/dL 06/04/2016 9:36 PM CDT [facility] TRIGLYCERIDE 234(H) <150 mg/dL 06/04/2016 9:36 PM CDT [facility] HDL 28(L) 40 - 59 mg/dL 06/04/2016 9:36 PM CDT [facility] LDL CALCULATED 37 <100 mg/dL 06/04/2016 9:36 PM CDT [facility] NON-HDL CHOLESTEROL 84 <130 mg/dL 06/04/2016 9:36 PM CDT [facility] Blood 06/04/2016 7:44 PM CDT 06/04/2016 8:25 PM CDT Narrative [facility] - 06/04/2016 9:36 PM CDT TOTAL CHOLESTEROL mg/dL Desirable <200 [...] ORDERABLES Final Resu lt Performing Organization Address City/[facility] Co de Phone Number [facility] CLIA # [id number] [address] [place] [address] * (ABNORMAL) HEMOGLOBIN A1C (06/04/2016 7:44 PM CDT) HEMOGLOBIN A1C 6.8(H) 4.8 - 5.9 % 06/04/2016 9:37 PM CDT [facility] EST. AVG GLUCOSE, A1C 148 mg/dL 06/04/2016 9:37 PM CDT [facility] Blood 06/04/2016 7:44 PM CDT 06/04/2016 8:25 PM CDT us Alex Rubio DO CHEMISTRY ORDERABLES Final Resu lt Performing Organization Address City/[facility]/ZIP Co de Phone Number [facility] CLIA # [id number] [address] [place] [address] * (ABNORMAL) COMPREHENSIVE METABOLIC PANEL (06/04/2016 7:44 PM CDT) SODIUM 143 136 - 145 mmol/L 06/04/2016 9:37 PM [facility] POTASSIUM 4.4 3.5 - 5.1 mmol/L 06/04/2016 9:37 PM [facility] CHLORIDE 106 98 - 107 mmol/L 06/04/2016 9:37 PM [facility] CO2 22 22 - 29 mmol/L 06/04/2016 9:37 PM [facility] CALCIUM 9.5 8.8 - 10.2 mg/dL 06/04/2016 9:37 PM [facility] BUN 14 8 - 23 mg/dL 06/04/2016 9:37 PM [facility] CREATININE 0.87 0.67 - 1.17 mg/dL 06/04/2016 9:37 PM [facility] GLUCOSE 117(H) 74 - 106 mg/dL 06/04/2016 9:37 PM [facility] TOTAL PROTEIN 8.9(H) 6.6 - 8.7 g/dL 06/04/2016 9:37 PM [facility] ALBUMIN 4.7 3.5 - 5.2 g/dL 06/04/2016 9:37 PM [facility] BILIRUBIN TOTAL 0.4 0.0 - 1.2 mg/dL 06/04/2016 9:37 PM [facility] ALKALINE PHOSPHATASE 81 40 - 129 U/L 06/04/2016 9:37 PM [facility] AST 27 10 - 50 U/L 06/04/2016 9:37 PM [facility] ALT 30 10 - 50 U/L 06/04/2016 9:37 PM [facility] GFR >60 >=60 mL/min/1.7 3 sq meter 06/04/2016 9:37 PM [facility] Comment: eGFR has not been validated [...] GFR, >60 >=60 mL/min/1.7 3 sq meter 06/04/2016 9:37 PM CDT [facility] ANION GAP 15 12 - 20 mmol/L 06/04/2016 9:37 PM CDT [facility] Blood 06/04/2016 7:44 PM CDT 06/04/2016 8:25 PM CDT us Alex Rubio DO CHEMISTRY ORDERABLES Final Resu lt [facility] CLIA # [id number] [address] [place] [address] documented in this encounter Visit Diagnoses Not on filedocumented in this encounter
--- NOTE | 2025-05-16 01:52 | XRR_ITS ---
PROCEDURE INFORMATION: Exam: XR Chest Exam date and time: 05/16/2025 1:55 AM Age: 69 years old Clinical indication: Shortness of breath; Additional info: SOB TECHNIQUE: Imaging protocol: Radiologic exam of the chest. Views: 1 view. COMPARISON: No relevant prior studies available. FINDINGS: Lungs: Unremarkable. No consolidation. Pleural spaces: Unremarkable. No pleural effusion. No pneumothorax. Heart/Mediastinum: Unremarkable. No cardiomegaly. Vasculature: Atherosclerotic changes of the aorta are noted. Bones/joints: Unremarkable. XR/XR chest 1V portable [id number] IMPRESSION: No acute findings.
--- NOTE | 2025-05-16 01:52 | ECG_ITS ---
[employer] Test Date: 2025-05-16 Pat Name: Martell Rehman Department: Room: Gender: Male Senior Officer: : 1955 Requested By: Simon Ivory Order Number: [id number] Harpreet MD: KALEE CAREY Measurements Intervals [place] Rate: 89 P: 56 ND: 169 QRS: -73 QRSD: 122 T: 61 QT: 369 QTc: 450 Interpretive Statements SINUS RHYTHM LEFT AXIS DEVIATION [QRS AXIS < -30] RIGHT BUNDLE BRANCH BLOCK [120+ ms QRS DURATION, UPRIGHT V1, 40+ ms S IN I/aVL/V4/V5/V6] No previous ECG available for comparison Electronically Signed On 05-16-2025 23:14:18 CDT by KALEE CAREY [id number]
[2025-05-16 02:17] LABS: Hematocrit 35.5 % (37-53); Hemoglobin 12.20 g/dL (11.27-16.99); Mean Corpuscular HGB Conc 34.4 g/dL (30-55); Mean Corpuscular Hemoglobin 29.9 pg (27-33); Mean Corpuscular Volume 87.0 fl (82-101); Nucleated Red Blood Cells % 0 %; Platelet Count 212 10^3/cmm (157-399); Red Blood Count 4.08 10^6/uL (3.85-5.65); White Blood Count 10.63 10^3/uL (3.29-11.43)
[2025-05-16 02:22] LABS: Alanine Aminotransferase 68 U/L (0-41); Albumin Level 3.3 g/dL (3.5-5.2); Alkaline Phosphatase 87 U/L (40-130); Anion Gap 22.1 (5-19); Aspartate Amino Transferase 67 U/L (0-40); Blood Urea Nitrogen 34 mg/dL (8-23); Calcium 7.7 mg/dL (8.5-10.5); Carbon Dioxide 17 mmol/L (22-29); Chloride 99 mmol/L (98-107); Globulin 2.6 g/dL (1.3-4.6); Glucose 146 mg/dL (65-115); Osmolality Calculated 288 mOsm/kg (285-295); Potassium 4.1 mmol/L (3.5-5.1); Sodium 134 mmol/L (136-145); Total Protein 5.9 g/dL (6.6-8.7)
[2025-05-16 02:23] LABS: Creatinine Clr Calc Pharmacy 43.5832
[2025-05-16 03:16] LABS: Lactic Sepsis W/Reflex 3.2 mmol/L (0.5-2.2)
[2025-05-16 03:17] LABS: Reflex Lactate Order REFLEX LACTIC ORDERD
[2025-05-16 03:20] LABS: NT Pro B Type Natriuretic Pept 12826 pg/mL (0-125)
--- NOTE | 2025-05-16 03:57 | ECG_ITS ---
[facility] Date: 2025-05-16 Pat Name: Martell Rehman Department: Room: Gender: Male Convention Services Director: : 1955 Requested By: Simon Ivory Order Number: [id number] Harpreet MD: KALEE CAREY Measurements Intervals [place] Rate: 80 P: 56 ND: 155 QRS: -74 QRSD: 118 T: 51 QT: 392 QTc: 454 Interpretive Statements SINUS RHYTHM RIGHT BUNDLE BRANCH BLOCK [120+ ms QRS DURATION, UPRIGHT V1, 40+ ms S IN I/aVL/V4/V5/V6] LEFT ANTERIOR FASCICULAR BLOCK [QRS AXIS <= -45, QR IN I, RS IN II] Compared to ECG 05/16/2025 01:19:22 Left anterior fascicular block now present Left-axis deviation no longer present Electronically Signed On 05-16-2025 23:14:25 CDT by KALEE CAREY [email or web address]
--- NOTE | 2025-05-16 04:00 | ED_ITS ---
HPI - SOB/Dyspnea 2 General: Chief Complaint: Shortness of Breath/Dyspnea Stated Complaint: sob Time Seen by Provider: 05/16/25 01:52 History of Present Illness: HPI Narrative: Patient is a 69-year-old male with history of COPD presenting with episodes of acute dyspnea, dizziness, and near syncope over the past two days. Patient reports feeling lightheaded before episodes, describing them as feeling like a 'COPD attack but worse.' During these episodes, he experiences severe respiratory distress with labored breathing, followed by brief or near loss of consciousness and urinary incontinence. 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 The patient then collapses and after a short period, his breathing relaxes and normalizes. Patient reports epistaxis during the last two episodes. These episodes have occurred both at rest and with minimal exertion. Patient visited [facility] prior to this encounter where he was treated for hyperkalemia and prescribed albuterol for nebulizer, which he reports is 'the only thing that'll break through to get me to breathe.' Patient denies chest pain, nausea, or vomiting during these episodes. Patient reports not taking his regular medications for the past two days due to being in emergency rooms. Related Data Previous Rx's ?Medication ?Instructions ?Recorded inhalational spacing device #50 ea 10/02/22 (Aerochamber Plus Z Stat spacer) albuterol sulfate 90 mcg/actuation 2 puff inhalation Q 6H PRN 10/13/24 aerosol inhaler shortness of breath or wheez ing #6.7 grams budesonide-formoterol HFA 80 2 puff inhalation BID #10 .2 grams 11/13/24 mcg-4.5 mcg/actuation aerosol inhaler (Symbicort) lisinopril 20 mg tablet See Rx Instructions .Route 0 12/11/24 .COMPLEX #90 tabs rosuvastatin 20 mg tablet See Rx Instructions .Route 0 02/16/25 .COMPLEX #90 tabs atenolol 25 mg tablet See Rx Instructions .Route 0 03/11/25 .COMPLEX #90 tabs atenolol 50 mg tablet See Rx Instructions .Route 0 03/11/25 .COMPLEX #90 tabs levothyroxine 25 mcg tablet See Rx Instructions .Route 03/11/25 .COMPLEX #90 tabs metformin 500 mg tablet See Rx Instructions .Route 0 03/25/25 .COMPLEX #90 tabs budesonide-formoterol HFA 80 See Rx Instructions .Rout e 04/27/25 mcg-4.5 mcg/actuation aerosol .COMPLEX #11 grams inhaler (Breyna) Allergies Allergy/AdvReac Type Severity Reaction Status Date / Time Penicillins Allergy UNKNOWN Verified 03/25/25 09:29 PFSH ED 2 PFSH: Medical History Hyperlipidemia Hypertension, unspecified type Type 2 diabetes mellitus without complication Hypothyroidism Social History Smoking and tobacco/nicotine status: current every day tobacco/nicotine user Physical Exam 2 Const: GENERAL APPEARANCE: cooperative, ill appearing and frail appearing (Mildly) HENMT: COMMON NORMALS: normocephalic, atraumatic and Normal external nose present HEAD & SCALP: normocephalic and atraumatic FACE & SINUS: normal facial exam and face symmetric NOSE: Normal external nose present Eye: COMMON NORMALS: Equal, round and reactive pupils present and EOMs intact bilaterally PUPIL: Yes Equal, round and reactive pupils present Neck/C-Spine: GENERAL: Yes trachea midline Chest: CHEST: Yes Symmetrical chest wall rise Resp: EFFORT & INSPECTION: Yes tachypneic AUSCULTATION: rhonchi and diminished lung sounds Cardio: COMMON NORMALS: regular rate and regular rhythm RATE: regular rate RHYTHM: regular rhythm GI: COMMON NORMALS: Normal to inspection, nondistended, normoactive bowel sounds present Extremity: COMMON NORMALS: no pedal edema Neuro: MARTHA COMA SCALE: document GCS findings [place] coma scale eye opening: Spontaneous [place] coma scale verbal response: Orientated [place] coma scale motor response: Obey commands Martha coma scale total score: 15 S ENSORY EXAM: Yes extremities (intact) Psych: COMMON NORMALS: speech normal SPEECH: Yes normal speech Skin: COMMON NORMALS: no rashes or lesions noted GENERAL SKIN EXAM: no rashes or lesions noted Course 2 Vital Signs: Vital signs: Vital Signs Temperature 98.3 F 05/16/25 01:17 Pulse Rate 78 05/16/25 03:00 Respiratory Rate 16 05/16/25 03:00 Blood Pressure 102/57 05/16/25 03:00 Pulse Oximetry 96 05/16/25 03:00 MDM - SOB/Dyspnea Medical Decision Making Blood pressures have been soft in this patient. 100s over 50s. He is orthostatic, sinking to 86 systolic on standing. The patient was symptomatic becoming dizzy and short of breath on standing. Chest x-ray is nonacute. CBC is not actionable. Bicarbonate is 17 with a lactic acid of 3.2 and a creatinine of 1.5. His BNP is significantly elevated at 13,000, however, he appears volume contracted and not volume overloaded clinically. He is given a liter bolus, followed by 100 mL/h maintenance fluid. The patient denied chest discomfort, but troponins have been ordered retroactively. EKG does not show acute ST wave changes. He will be admitted to CSU. Cardiology consultation later this morning. Echo, etc. Lab Data 05/16/25 01:58 05/16/25 01:58 Labs/Radiology: Radiology Impressions Chest X-Ray 05/16/25 01:52 IMPRESSION: No acute findings. Laboratory Results WBC 10.63 10^3/uL (3.29-11.43) 05/16/25 01:58 RBC 4.08 10^6/uL (3.85-5.65) 05/16/25 01:58 Hgb 12.20 g/dL (11.27-16.99) 05/16/25 01:58 Hct 35.5 % (37-53) L 05/16/25 01:58 MCV 87.0 fl (82-101) 05/16/25 01:58 MCH 29.9 pg (27-33) 05/16/25 01:58 MCHC 34.4 g/dL (30-55) 05/16/25 01:58 RDW 14.7 % (12.1-15.1) 05/16/25 01:58 Plt Count 212 10^3/cmm (157-399) 05/16/25 01:58 MPV 9.1 fL (7.4-10.4) 05/16/25 01:58 Neut % (Auto) 77.3 % 05/16/25 01:58 Lymph % (Auto) 14.4 % 05/16/25 01:58 [place] % (Auto) 7.4 % 05/16/25 01:58 Eos % (Auto) 0.1 % 05/16/25 01:58 Baso % (Auto) 0.1 % 05/16/25 01:58 Neut # (Auto) 8.22 10^3/uL (1.8-7.7) H 05/16/25 01:58 Lymph # (Auto) 1.5 10^3/uL (0.8-4.8) 05/16/25 01:58 [place] # (Auto) 0.8 10^3/uL (0.2-0.9) 05/16/25 01:58 Eos # (Auto) 0.0 10^3/uL (0.0-0.8) 05/16/25 01:58 Baso # (Auto) 0.0 10^3/uL (0.0-0.1) 05/16/25 01:58 Nucleated RBC % (auto) 0 % 05/16/25 01:58 Nucleated RBCs # 0.0 /100WBC 05/16/25 01:58 Sodium 134 mmol/L (136-145) L 05/16/25 01:58 Potassium 4.1 mmol/L (3.5-5.1) 05/16/25 01:58 Chloride 99 mmol/L (98-107) 05/16/25 01:58 Carbon Dioxide 17 mmol/L (22-29) L 05/16/25 01:58 Anion Gap 22.1 (5-19) H 05/16/25 01:58 BUN 34 mg/dL (8-23) H 05/16/25 01:58 Creatinine 1.5 mg/dL (0.7-1.2) H 05/16/25 01:58 GFR Calculation Not Reportable 05/16/25 01:58 Glucose 146 mg/dL (65-115) H 05/16/25 01:58 Calculated Osmolality 288 mOsm/kg (285-295) 05/16/25 01:58 Lactic Acid 3.2 mmol/L (0.5-2.2) H 05/16/25 02:51 Calcium 7.7 mg/dL (8.5-10.5) L 05/16/25 01:58 Total Bilirubin 0.5 mg/dL (0.15-1.2) 05/16/25 01:58 AST 67 U/L (0-40) H 05/16/25 01:58 ALT 68 U/L (0-41) H 05/16/25 01:58 Alkaline Phosphatase 87 U/L (40-130) 05/16/25 01:58 NT-Pro-B Natriuret Pep 82486 pg/mL (0-125) H 05/16/25 01:58 Total Protein 5.9 g/dL (6.6-8.7) L 05/16/25 01:58 Albumin 3.3 g/dL (3.5-5.2) L 05/16/25 01:58 Globulin 2.6 g/dL (1.3-4.6) 05/16/25 01:58 All radiology interpretation(s) finalized by discharge Discharge Plan Discharge Condition: Stable Prescriptions: No Action albuterol sulfate 90 mcg/actuation HFA aerosol inhaler 2 puff inhalation Q6H PRN (Reason: shortness of breath or wheezing) Qty: 6.7 2RF budesonide-formoterol [Symbicort] 80-4.5 mcg/actuation HFA aerosol inhaler 2 puff inhalation BID Qty: 10.2 2RF metformin 500 mg tablet See Rx Instructions .ROUTE .COMPLEX Qty: 90 0RF Dose Instruction: Take 1 tablet by mouth twice daily Rx Instructions: Take 1 tablet by mouth daily (DME) Aerochamber Plus Z Stat Spacer See Rx Instructions .Route Qty: 50 0RF Rx Instructions: As directed lisinopril 20 mg tablet See Rx Instructions .ROUTE .COMPLEX Qty: 90 1RF Dose Instruction: Take 1 tablet by mouth once daily Rx Instructions: Take 1 tablet by mouth once daily rosuvastatin 20 mg tablet See Rx Instructions .ROUTE .COMPLEX Qty: 90 0RF Dose Instruction: Take 1 tablet by mouth once daily Rx Instructions: Take 1 tablet by mouth once daily atenolol 50 mg tablet See Rx Instructions .ROUTE .COMPLEX Qty: 90 0RF Dose Instruction: Take 1 tablet by mouth once daily Rx Instructions: Take 1 tablet by mouth once daily atenolol 25 mg tablet See Rx Instructions .ROUTE .COMPLEX Qty: 90 0RF Dose Instruction: Take 1 tablet by mouth once daily Rx Instructions: Take 1 tablet by mouth once daily levothyroxine 25 mcg tablet See Rx Instructions .ROUTE .COMPLEX Qty: 90 0RF Dose Instruction: Take 1 tablet by mouth once daily Rx Instructions: Take 1 tablet by mouth once daily budesonide-formoterol [Breyna] 80-4.5 mcg/actuation HFA aerosol inhaler See Rx Instructions .ROUTE .COMPLEX Qty: 11 0RF Dose Instruction: Inhale 2 puffs by mouth twice daily Rx Instructions: Inhale 2 puffs by mouth twice daily Referrals: Antonette Altman FNP [Primary Care Provider, Family Practice] Print Language: Maltese Coding Level of Care Code ED Studio Coordinator for Flakito Sims
[2025-05-16 04:30] LABS: Troponin(5th) Baseline 34 ng/L (0-15)
--- NOTE | 2025-05-16 05:20 | P.HP_ITS ---
Providers/Chief Complaint 2 Admitting Physician: Cathy Beebe MD----patient seen and evaluated after 12 midnight Primary Care Provider: LINDA Lilly Chief Complaint: sob History of Present Illness Martell Rehman is a 69 year old male with medical history significant for hypertension on room air at home but had acute episode of shortness of breath over the past couple of days and had to go to [facility] few months he for care he was seen and treated as a COPD exacerbation and was sent home. Patient had not had time to even fill out the medication reference inhaler that he was given. He had to come back to the emergency room for ongoing near syncopal event patient actually fell 3 times not quite like passing out bed reach out to the floor because he was passing out. Patient blood pressure is noted to be soft in the 80s no sign of infection patient received a liter of fluid in the emergency room and then still the blood pressure was at 91/51. Patient baseline creatinine is usually 1. Today the creatinine is 1.5. I believe patient has been having hypotension and causing him to experience near syncopal event and with 4 different falls to the ground not passing out. In the emergency room after giving a liter of fluid the attending tried to get the patient up the blood pressure dropped in the 80s and patient got very lightheaded chest x-ray were unremarkable there are no infiltrates white count is normal with no left shift. Patient had never had echocardiogram 1 had been ordered and D-dimer had been ordered but processing. Should this be positive then patient need to get a CT with PE protocol of the chest Review of Systems 2 Narrative: System review upon 10 ongoing review were significant for cardiac/pulmonary system reference orthostatic hypotension and relates even hypotension and near syncopal event Medications/Allergies Home Medications ?Medication ?Instructions ?Recorded ?Confirmed ?Last Taken ?Type inhalational spacing device #50 ea 10/02/22 03/25/25 U nknown Rx (Aerochamber Plus Z Stat spacer) albuterol sulfate 90 mcg/actuation 2 puff inhalation Q 6H PRN 10/13/24 05/16/25 Unknown Rx aerosol inhaler shortness of breath or wheez ing #6.7 grams budesonide-formoterol HFA 80 2 puff inhalation BID #10 .2 grams 11/13/24 05/16/25 2 Days Ago Rx mcg-4.5 mcg/actuation aerosol ~ inhaler (Symbicort) rosuvastatin 20 mg tablet See Rx Instructions .Route 0 02/16/25 05/16/25 2 Days Ago Rx .COMPLEX #90 tabs ~05/14/25 atenolol 25 mg tablet See Rx Instructions .Route 0 03/11/25 05/16/25 2 Days Ago Rx .COMPLEX #90 tabs ~05/14/25 atenolol 50 mg tablet See Rx Instructions .Route 0 03/11/25 05/16/25 2 Days Ago Rx .COMPLEX #90 tabs ~05/14/25 levothyroxine 25 mcg tablet See Rx Instructions .Route 03/11/25 05/16/25 2 Days Ago Rx .COMPLEX #90 tabs ~05/14/25 metformin 500 mg tablet See Rx Instructions .Route 0 03/25/25 05/16/25 2 Days Ago Rx .COMPLEX #90 tabs ~05/14/25 budesonide-formoterol HFA 80 See Rx Instructions .Rout e 04/27/25 05/16/25 2 Days Ago Rx mcg-4.5 mcg/actuation aerosol .COMPLEX #11 grams ~ inhaler (Breyna) omega-3 fatty acids 1,000 mg PO TID 05/16/2507/29 2 Days Ago History ~05/14/25 Allergies Allergy/AdvReac Type Severity Reaction Status Date / Time Penicillins Allergy UNKNOWN Verified 03/25/25 09:29 PFSH Acute 2 PFSH: Medical History Hyperlipidemia Hypertension, unspecified type Type 2 diabetes mellitus without complication Hypothyroidism Social History Smoking and tobacco/nicotine status: current every day tobacco/nicotine user Vitals/I&O/Wt Last Vital Signs Temp 98.3 F 05/16/25 01:17 Pulse 76 05/16/25 04:47 Resp 16 05/16/25 04:47 BP 99/57 05/16/25 04:47 Pulse Ox 98 05/16/25 04:47 05/15/25 05/15/25 05/16/25 14:59 22:59 06:59 Intake Total 1000 / 1000 Balance 1000 / 1000 Weight last 48 hrs Weight 74.843 kg Physical Exam 2 Narrative: Patient is apprehensive as to what is going on with him. Following a liter bolus given into the emergency room I decided to have a gentle fluid hydration at 100 mL/h for now. Systolic blood pressure at this time is holding up at 98/60 HEENT normocephalic atraumatic neck neck is supple cardiovascular heart rate is regular lungs are pretty much clear abdomen soft nontender nondistended unremarkable extremities are intact no edema has good pulses neurology he has no focality lab studies lab studies reviewed and noted. Data 05/16/25 01:58 05/16/25 01:58 A&P Assessment and plan 1. Near syncope: 2. Renal insufficiency: 3. COPD (chronic obstructive pulmonary disease): 4. Type 2 diabetes mellitus without complication: 5. Orthostatic hypotension: Plan: Orthostatic hypotension and persistent - Responded slightly to fluid x 1 L - Patient with history of high blood pressure now found with a low blood pressure in the 80s - Systolic blood pressure at this time maintaining in the 90s with soft gentle hydration at 100 mL/h following 1 L fluid bolus - Echocardiogram ordered at this time with cardiology consultation - Orthostatic blood pressure multifactorial could be due to autonomic dysfunction from diabetes Acute renal failure secondary to hypotension from home - This is likely due to ischemic injury to the kidney due to hypotension - Must continue to monitor and optimize Lactic acidosis likely secondary to volume contraction - Lactate is 3.2 with no sign of infection likely due to volume contraction - Recheck lactate follow-up with care. Elevated BNP of 12,862 - Likely patient might be cardiomyopathic -Follow-up echo with cardiology Dr. Cruz that had been consulted PDMP PDMP Reviewed: Not Reviewed Attestations 2 Medical Necessity Statement*: Patient with shortness of breath and orthostatic blood pressure with dizziness, most likely might have cardiomyopathy versus order cardiac pulmonary entity will need at least 2 midnights to optimize patient. Coding Level of Care Code 24493 Diagnoses Near syncope R55 Renal insufficiency N28.9 COPD (chronic obstructive pulmonary disease) J44.9 Type 2 diabetes mellitus without complication E11.9 Orthostatic hypotension I95.1 Time Spent (min) 60
--- NOTE | 2025-05-16 05:36 | USCV_ITS ---
Martell Rehman Age: 69 Gender: M : 1955 Exam Date: 05/16/2025 08:24 Ordering Phys: Cathy Beebe MD Technologist: Atilio Rubio Exam Location: [facility] [place] Indication: and syncopal event and shortness of breath with soft blood pressure BP: 92 / 59 HR: 81 Rhythm: Sinus Technical Quality: Adequate MEASUREMENTS (Male / Female) Normal Values 2D ECHO LV Diastolic Diameter PLAX 4.3 cm 4.2 - 5.9 / 3.9 - 5.3 cm IVS Diastolic Thickness 1.2 cm 0.6 - 1.0 / 0.6 - 0.9 cm IVS Systolic Thickness 1.1 cm LVPW Diastolic Thickness 1.1 cm 0.6 - 1.0 / 0.6 - 0.9 cm LVPW Systolic Thickness 1.5 cm LVOT Diameter 2.0 cm LV Ejection Fraction 2D Teich 70.6 % LV Ejection Fraction MOD 4C 73.6 % LV Ejection Fraction MOD 2C 72.7 % LV Ejection Fraction 2C AL 73.5 % LA Diameter 4.1 cm RA Systolic Volume 4C AL 33.0 ml RA Systolic Volume 4C MOD 32.5 ml LA Sys Volume AL 35.2 cm cubed LA Sys Volume Index AL 18.5 cm cubed/m squared Aorta at Sinotubular Diameter 2.4 cm IVC Diameter 2.2 cm M-MODE LA Ao Ratio MM 1.5 AV Cusp Separation MM 2.0 cm DOPPLER AV Peak Velocity 147.0 cm/s LVOT Peak Velocity 106.0 cm/s AV Area Cont Eq vti 2.5 cm squared AV Area Cont Eq pk 2.3 cm squared MV Peak Velocity 123.0 cm/s MV Area PHT 6.5 cm squared Mitral E to A Ratio 1.2 TV Peak Velocity 336.3 cm/s TR Peak Velocity 403.0 cm/s TR Peak Gradient 65.0 mmHg TR Mean Velocity 298.0 cm/s TR Mean Gradient 36.8 mmHg TR Velocity Time Integral 100.3 cm PV Peak Velocity 80.0 cm/s RV Ejection Time 0.3 s FINDINGS Left Ventricle Normal left ventricular size and systolic function, EF 60-65%. No regional wall motion abnormalities Right Ventricle Normal in size and function Right Atrium Normal in size Left Atrium Normal in size IA Septum Grossly normal Mitral Valve Structurally normal mitral valve. Trace mitral regurgitation. Aortic Valve Structurally normal aortic valve. No significant stenosis or regurgitation. Tricuspid Valve Mild tricuspid regurgitation. RVSP is 40 to 45 mmHg. This is consistent with mild pulmonary hypertension. Pulmonic Valve Not well visualized Pericardium Normal Aorta Normal in size IVC Appears to be dilated CONCLUSIONS LV systolic function is normal with EF of 60-65% Trace mitral regurgitation Mild tricuspid regurgitation. Mild pulmonary hypertension IVC appears to be dilated No comparison studies are available. Estiven Avila MD (Electronically Signed) Final Date: 16 May 2025 10:00 S
[2025-05-16] MEDS: heparin 5,000 unit/mL INJ 1 mL 5000 UNIT SUBCUT (06:36)
[2025-05-16 06:46] LABS: Troponin 5 2HR 36.44 ng/L (0-15); Troponin 5 2HR Delta 2.44 ABS# (0-10)
[2025-05-16 06:47] LABS: Lactic Acid level (Lactate) 3.0 mmol/L (0.5-2.2)
[2025-05-16] MEDS: alum-mag-hydroxide-sime 30 mL UDC PO (07:33)
--- NOTE | 2025-05-16 07:33 | PC.NURSE ---
Patient complaining of heartburn. Dr. Beebe stopped at room and requested something for heartburn. Recieved order to give maalox.
--- NOTE | 2025-05-16 08:16 | CTR_ITS ---
PROCEDURE INFORMATION: Exam: CTA Chest With Contrast Exam date and time: 05/16/2025 8:43 AM Age: 69 years old Clinical indication: Abnormal findings; Abnormal diagnostic tests; Elevated d-dimer; Shortness of breath; Additional info: Elevated ddimer, syncope, SOB TECHNIQUE: Imaging protocol: Computed tomographic angiography of the chest with contrast. Exam focused on the arteries. 3D rendering (Not supervised by radiologist): MIP and/or 3D reconstructed images were created by the technologist. Radiation optimization: All CT scans at this facility use at least one of these dose optimization techniques: automated exposure control; mA and/or kV adjustment per patient size (includes targeted exams where dose is matched to clinical indication); or iterative reconstruction. Contrast material: OMNI 350; Contrast volume: 80 ml; Contrast route: INTRAVENOUS (IV); COMPARISON: CR (CHEST, ) 05/16/2025 1:55 AM RADIATION DOSE METRICS: Total DLP (mGy-cm): 461.82 FINDINGS: Pulmonary arteries: Normal. No pulmonary emboli. Aorta: The thoracic aorta is normal in caliber without aneurysm or dissection. There is calcified plaque involving the aorta and coronary vessels. There is a partially imaged abdominal aortic aneurysm which measures near 8 cm x 6.4 cm in size. Lungs: There is minimal compressive atelectasis bilaterally. No non dependent airspace disease is appreciated. Pleural spaces: There is a small right and smaller left pleural effusion. Heart: Unremarkable. No cardiomegaly. No pericardial effusion. Lymph nodes: There are a few small mediastinal lymph nodes. No enlarged nodes are appreciated. Gallbladder and biliary ducts: While no definite gallstones are identified within the gallbladder, there appears to be gallbladder wall thickening and/or pericholecystic fluid. Recommend clinical correlation as to the presence of cholecystitis. Intraperitoneal space: Small amount of ascites is seen within the right upper quadrant. Bones/joints: Unremarkable. No acute fracture. Soft tissues: Unremarkable. CT/CT angio chest PE protcl [id number] IMPRESSION: 1. Small bilateral pleural effusions with compressive atelectasis. Findings slightly worse on the right than on the left. 2. Partially imaged upper abdominal aorta aneurysm measuring near 8 cm in size. 3. Findings suspicious for gallbladder disease/cholecystitis. 4. Small volume perihepatic ascites.
--- NOTE | 2025-05-16 08:34 | ECG_ITS ---
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
[2025-05-16 08:39] LABS: ABG PCO2 27.9 mmHg (35-45); ABG PH Result 7.37 (7.35-7.45); Arterial Blood Gas Hematocrit 40.2 % (42-52); Blood Gas Operator Identificat BROMA; Blood Gas Sample Site Brachial, right; Blood Gas Sample Type Arterial; HCO3 ABG 16.0 mmol/L (22-26); PO2 ABG 77.2 mmHg (80.0-100.0); PO2 FiO2 Ratio Arterial Blood 367
[2025-05-16 08:43] LABS: Procalcitonin 0.06 ng/mL (0-0.5)
--- NOTE | 2025-05-16 08:48 | PC.NURSE ---
Atilio, [employer] tech, was at bedside when patient stated he wanted to sit up. Atilio called Mikey and Tiana in from the hallway and they sat the patient up, but as they did the patient bradyed down to 38 and a rapid response was called. Dr Hernandez at bedside when patient's nurse (expert medical writer) arrived at bedside. Medications for raising heart rate were cancelled as patient's heart rate harvey back to 112. Dr Boland arrived and ordered a stat ekg, ct, and abg. Tests performed and patient was taken to CT for a stat CT angio. at bedside.
[2025-05-16] MEDS: iohexol 350 mg/mL 500 mL Btl (per mL) IV ×2 (08:54→10:35)
--- NOTE | 2025-05-16 10:10 | CTR_ITS ---
PROCEDURE INFORMATION: Exam: CTA Abdomen and Pelvis With Contrast Exam date and time: 05/16/2025 10:22 AM Age: 69 years old Clinical indication: Other: Aaa near 8cm on cta chest TECHNIQUE: Imaging protocol: Computed tomographic angiography of the abdomen and pelvis with contrast. Exam focused on the arteries. 3D rendering (Not supervised by radiologist): MIP and/or 3D reconstructed images were created by the technologist. Radiation optimization: All CT scans at this facility use at least one of these dose optimization techniques: automated exposure control; mA and/or kV adjustment per patient size (includes targeted exams where dose is matched to clinical indication); or iterative reconstruction. Contrast material: OMNI 350; Contrast volume: 100 ml; Contrast route: INTRAVENOUS (IV); COMPARISON: CT angio chest PE protcl [id number] 05/16/2025 8:43 AM RADIATION DOSE METRICS: Total DLP (mGy-cm): 594.9 FINDINGS: Lungs: There is bibasilar airspace disease likely related to atelectasis. Pleural spaces: There is a small right and smaller left pleural effusion. Aorta: The upper abdominal aorta is normal in caliber. The infrarenal abdominal aorta is dilated measuring 8.4 x 8.6 cm in size. There is mild fat stranding adjacent to the aorta and right iliac artery. While no definite extravasation of contrast is identified, the presence of adjacent fat stranding as well as hyperdense ascites suggest the possibility of a slow leak/slow rupture. 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 Celiac and mesenteric arteries: There is [id number] narrowing involving the origin of the celiac axis estimated at between 50 and 75%. There is similar moderate narrowing involving the SMA just distal to its origin estimated at between 50 and 75%. The NONA is patent. Renal arteries: There are diseased but patent single renal arteries bilaterally. 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 Left iliac arteries: There is mild aneurysmal dilatation of the left common iliac artery which measures 2.1 cm in size. Liver: There is diffuse fatty infiltration of the liver. The liver is otherwise normal. Gallbladder and biliary ducts: No definite gallstones are appreciated. However, there is gallbladder wall thickening with minimal adjacent fat stranding. Findings suspicious for gallbladder disease/cholecystitis. Pancreas: Unremarkable. No mass. No ductal dilation. Spleen: Unremarkable. No splenomegaly. Adrenal glands: Unremarkable. No mass. Kidneys and ureters: Are small benign-appearing renal cysts. There is a degree of cortical scarring involving the kidneys. No hydronephrosis is noted. Stomach and bowel: Unremarkable. No obstruction. No mucosal thickening. Appendix: The appendix is not definitely identified. Intraperitoneal space: There are small volume ascites within the abdomen and pelvis. The ascitic fluid is slightly hyperdense suggesting there may be a hemorrhagic component. Lymph nodes: Unremarkable. No enlarged lymph nodes. Urinary bladder: Unremarkable. No mass. Reproductive: Unremarkable as visualized. Bones/joints: No acute fracture. Soft tissues: Unremarkable. CT/CT angio abdomen pelvis [id number] IMPRESSION: 1. Wall thickening with mild adjacent fat stranding with regards to the gallbladder suggestive of acute gallbladder disease. Recommend clinical correlation. 2. Small right and smaller left pleural effusion with compressive atelectasis. 3. Aneurysmal dilatation involving the ascending aorta which measures 8.4 x 8.6 cm in size. There is also aneurysmal dilatation of the right common iliac artery which measures 8.5 x 10 cm in size. There is mild fat stranding adjacent to the aorta and right iliac artery. Given the presence of hyperdense ascites, there may be a slow leak/slow rupture. No definite extravasation of contrast is appreciated. 4. 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 5. There are small volume ascites which is slightly hyperdense suggesting a component of hemorrhage
--- NOTE | 2025-05-16 10:11 | USR_ITS ---
PROCEDURE INFORMATION: Exam: US Abdomen, Limited; Right Upper Quadrant Exam date and time: 05/16/2025 11:14 AM Age: 69 years old Clinical indication: Abnormal findings; Abnormal radiologic finding of the abdomen; Radiologic exam and body structure: CT gb; Additional info: Evaluate for cholecystitis TECHNIQUE: Imaging protocol: Real time ultrasound of the abdomen with image documentation. Limited exam focused on the right upper quadrant. COMPARISON: CT angio abdomen pelvis [id number] 05/16/2025 10:22 AM FINDINGS: Liver: Normal. No masses. Gallbladder: No definite gallstones are seen within the gallbladder however, there is gallbladder wall thickening with edematous change involving the gallbladder wall. The gallbladder wall measures 1.1 cm in thickness. Biliary ducts: Normal. No stones. No dilation. Pancreas: Visualized pancreas is unremarkable. Right kidney: The right kidney measures 10.7 cm in length and is equal in echogenicity to the liver which is within normal limits. No hydronephrosis is noted. There may be a small cyst measuring 1.8 cm in size. Aorta: The aorta is dilated measuring near 8.8 cm in maximal dimension. IVC: The IVC is patent. Peritoneal cavity: There are small volume ascites. US/US liver [id number] IMPRESSION: 1. Aneurysmal dilatation involving the aorta which measures near 8.8 cm in size. This has been previously reported and discussed with referring physician. 2. Small volume ascites. 3. Gallbladder wall thickening with edematous change involving the gallbladder wall. Even in the absence of gallstones, findings are suspicious for acute gallbladder disease.
--- NOTE | 2025-05-16 11:09 | PC.NURSE ---
Nurse called air evac at 1108 to put air evac on standby for transfer to [place] for cardiothroacic surgery due to aortic aneurysm. Baster Hand spoke to Jimmy in dispatch who noted that air evac 1 was in [place] and available for transport pending a weather check.
--- NOTE | 2025-05-16 11:15 | P.TS_ITS ---
Transfer Summary Providers Date of Admission: 05/16/25 04:01 Date of Discharge/Transfer: 05/16/25 Attending Provider at Admission: Cathy Beebe MD Attending Provider at Transfer: James Vallejo MD Primary Care Provider: LINDA Lilly Transfer Plans: Anticipated date of transfer: 05/16/25 . Receiving Facility: [facility] . Receiving Provider: Dr Rico Galdamez . Diagnoses at Discharge Discharge Diagnosis 1. AAA (abdominal aortic aneurysm): 2. Aneurysm of right common iliac artery: 3. Near syncope: 4. Orthostatic hypotension: 5. Renal insufficiency: 6. Chronic obstructive pulmonary disease, unspecified COPD type: 7. Tobacco abuse: 8. Type 2 diabetes mellitus without complication, with long-term current use of insulin: 9. Hypertension, unspecified type: 10. Mixed hyperlipidemia: 11. Hypothyroidism, unspecified type: Reason for Visit Reason for Visit sob Brief History: This is a 69-year-old male with COPD, tobacco use disorder, CAD status post PCI with stents, hypertension, hyperlipidemia, type 2 diabetes, and hypothyroidism who presented with shortness of breath and near syncope. For the past 2 days he has been having intermittent episodes of sudden onset shortness of breath with dizziness and near syncope. There is no seizure activity. He denies any chest pain, orthopnea, PND, peripheral edema, nausea, vomiting, abdominal pain, or other symptoms. He had orthostatic hypotension and was given IV fluids in the ED. Chest x-ray did not show any acute abnormality. He was saturating well on room air. Hospital Course Hospital Course He has significant elevation of his proBNP and D-dimer. CT angio chest PE protocol was done. This is negative for PE but showed small bilateral pleural effusions with compressive atelectasis (R>L). There is a partially imaged upper abdominal aortic aneurysm measuring near 8 cm in size. CTA abdomen pelvis showed abdominal aortic aneurysm measuring 8.4 x 8.6 cm in size. There was also aneurysm of the right common iliac artery measuring 8.5 x 10 cm in size. 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 There is also hyperdense ascites that may be slow leak/slow rupture. CT abdomen pelvis showed wall thickening with mild adjacent fat stranding of the gallbladder concerning for cholecystitis. His bilirubin was normal but he had mild elevation of his transaminases. His hemoglobin has been stable. His creatinine was elevated to 1.5. TTE showed normal LV size and systolic function with LVEF of 60 to 65%. The IVC appeared to be dilated. His blood pressure has been soft. He was transferred for vascular surgery at [facility]. Physical Exam Narrative: GEN: Alert, no acute distress HEENT: Normocephalic, atraumatic, PERRLA Neck: Supple Respiratory: Diminished breath sounds lower bases, no respiratory distress noted Cardio: Regular rate and rhythm, S1, S2, no murmur, no JVD Abdomen: Soft, nondistended, mild RUQ tenderness, normoactive bowel sounds, pulsatile abdomen Neuro: Alert, oriented x 3, no neurodeficits Extremity: Warm, no edema Skin: No rash or lesion TS Data Studies Completed and Pending Pending at discharge Category Date Time Status Complete Blood Count w/Auto AM LABS Lab 05/17/25 04:00 Ordered Comprehensive Metabolic Panel AM LABS Lab 05/17/25 04:00 Ordered Magnesium AM LABS Lab 05/17/25 04:00 Ordered Phosphorus AM LABS Lab 05/17/25 04:00 Ordered Troponin(5th) 6 hour. Timed Lab 05/16/25 10:17 [place] [id number] Routine Ultrasound 05/16/25 10:11 Ordered Completed Studies During Hospitalization Category Date Time Status CT angio abdomen pelvis [id number] Stat Cat Scan 05/16/25 10:[address] angio chest PE protcl [id number] Routine Cat Scan 05/16/25 08:16 Completed XR chest 1V portable [id number] Stat Exams 05/16/25 01:52 Completed CV. echo complete* [id number] Routine Ultrasound 05/16/25 05:36 Completed Laboratory Last Values WBC 10.63 10^3/uL (3.29-11.43) 05/16/25 01:58 RBC 4.08 10^6/uL (3.85-5.65) 05/16/25 01:58 Hgb 12.20 g/dL (11.27-16.99) 05/16/25 01:58 Hct 35.5 % (37-53) L 05/16/25 01:58 MCV 87.0 fl (82-101) 05/16/25 01:58 MCH 29.9 pg (27-33) 05/16/25 01:58 MCHC 34.4 g/dL (30-55) 05/16/25 01:58 RDW 14.7 % (12.1-15.1) 05/16/25 01:58 Plt Count 212 10^3/cmm (157-399) 05/16/25 01:58 MPV 9.1 fL (7.4-10.4) 05/16/25 01:58 Neut % (Auto) 77.3 % 05/16/25 01:58 Lymph % (Auto) 14.4 % 05/16/25 01:58 Canadian % (Auto) 7.4 % 05/16/25 01:58 Eos % (Auto) 0.1 % 05/16/25 01:58 Baso % (Auto) 0.1 % 05/16/25 01:58 Neut # (Auto) 8.22 10^3/uL (1.8-7.7) H 05/16/25 01:58 Lymph # (Auto) 1.5 10^3/uL (0.8-4.8) 05/16/25 01:58 Canadian # (Auto) 0.8 10^3/uL (0.2-0.9) 05/16/25 01:58 Eos # (Auto) 0.0 10^3/uL (0.0-0.8) 05/16/25 01:58 Baso # (Auto) 0.0 10^3/uL (0.0-0.1) 05/16/25 01:58 Nucleated RBC % (auto) 0 % 05/16/25 01:58 Nucleated RBCs # 0.0 /100WBC 05/16/25 01:58 D-Dimer 5.08 ug/mLFEU (0-0.59) H 05/16/25 01:50 Specimen Type Arterial 05/16/25 08:32 Sample Site Brachial, right 05/16/25 08:32 ABG pH 7.37 (7.35-7.45) 05/16/25 08:32 ABG pCO2 27.9 mmHg (35-45) L 05/16/25 08:32 ABG pO2 77.2 mmHg (80.0-100.0) L 05/16/25 08:32 ABG PO2/FiO2 Ratio 367 05/16/25 08:32 ABG HCO3 16.0 mmol/L (22-26) L 05/16/25 08:32 ABG Base Excess -8.0 mmol/L (-2.0-2.0) L 05/16/25 08:32 Rico Test N/a 05/16/25 08:32 Hematocrit 40.2 % (42-52) L 05/16/25 08:32 O2 Delivery Device Room air 05/16/25 08:32 FiO2 21.0 % 05/16/25 08:32 Geochemical Laboratory Technician ID Eduara 05/16/25 08:32 Sodium 134 mmol/L (136-145) L 05/16/25 01:58 Potassium 4.1 mmol/L (3.5-5.1) 05/16/25 01:58 Chloride 99 mmol/L (98-107) 05/16/25 01:58 Carbon Dioxide 17 mmol/L (22-29) L 05/16/25 01:58 Anion Gap 22.1 (5-19) H 05/16/25 01:58 BUN 34 mg/dL (8-23) H 05/16/25 01:58 Creatinine 1.5 mg/dL (0.7-1.2) H 05/16/25 01:58 GFR Calculation Not Reportable 05/16/25 01:58 Glucose 146 mg/dL (65-115) H 05/16/25 01:58 Calculated Osmolality 288 mOsm/kg (285-295) 05/16/25 01:58 Lactic Acid 3.2 mmol/L (0.5-2.2) H 05/16/25 02:51 Lactic Acid (Sepsis) 3.0 mmol/L (0.5-2.2) H 05/16/25 06:02 Calcium 7.7 mg/dL (8.5-10.5) L 05/16/25 01:58 Total Bilirubin 0.5 mg/dL (0.15-1.2) 05/16/25 01:58 AST 67 U/L (0-40) H 05/16/25 01:58 ALT 68 U/L (0-41) H 05/16/25 01:58 Alkaline Phosphatase 87 U/L (40-130) 05/16/25 01:58 Troponin T Baseline 34 ng/L (0-15) H 05/16/25 04:05 Troponin T 120 Minute 36.44 ng/L (0-15) H 05/16/25 06:02 Delta Troponin T 2.44 ABS# (0-10) 05/16/25 06:02 NT-Pro-B Natriuret Pep 93270 pg/mL (0-125) H 05/16/25 01:58 Total Protein 5.9 g/dL (6.6-8.7) L 05/16/25 01:58 Albumin 3.3 g/dL (3.5-5.2) L 05/16/25 01:58 Globulin 2.6 g/dL (1.3-4.6) 05/16/25 01:58 Procalcitonin 0.06 ng/mL (0-0.5) 05/16/25 04:05 Radiology Impressions Chest X-Ray 05/16/25 01:52 IMPRESSION: No acute findings. Chest CTA 05/16/25 08:16 IMPRESSION: 1. Small bilateral pleural effusions with compressive atelectasis. Findings slightly worse on the right than on the left. 2. Partially imaged upper abdominal aorta aneurysm measuring near 8 cm in size. 3. Findings suspicious for gallbladder disease/cholecystitis. 4. Small volume perihepatic ascites. ADDENDUM: 05/16/25 1010 COMMENT: THIS REPORT CONTAINS FINDINGS THAT MAY BE CRITICAL TO PATIENT CARE. The exam findings were verbally communicated by me to JAMES VALLEJO via telephone conference at 10:08 AM CDT on 05/16/2025. The findings were acknowledged and understood. Abdomen/Pelvis CTA 05/16/25 10:10 IMPRESSION: 1. Wall thickening with mild adjacent fat stranding with regards to the gallbladder suggestive of acute gallbladder disease. Recommend clinical correlation. 2. Small right and smaller left pleural effusion with compressive atelectasis. 3. Aneurysmal dilatation involving the ascending aorta which measures 8.4 x 8.6 cm in size. There is also aneurysmal dilatation of the right common iliac artery which measures 8.5 x 10 cm in size. There is mild fat stranding adjacent to the aorta and right iliac artery. Given the presence of hyperdense ascites, there may be a slow leak/slow rupture. No definite extravasation of contrast is appreciated. 4. 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 5. There are small volume ascites which is slightly hyperdense suggesting a component of hemorrhage ADDENDUM: 05/16/25 1103 COMMENT: THIS REPORT CONTAINS FINDINGS THAT MAY BE CRITICAL TO PATIENT CARE. The exam findings were verbally communicated by me to JAMES VALLEJO via telephone conference at 11:01 AM CDT on 05/16/2025. The findings were acknowledged and understood. Recent Clincial Data Last Vital Signs Temp 97.8 F 05/16/25 07:42 Pulse 85 05/16/25 11:07 Resp 16 05/16/25 11:07 BP 100/69 05/16/25 11:07 Pulse Ox 96 05/16/25 11:07 O2 Del Method Room Air 05/16/25 11:07 Vital Signs Temp Pulse Pulse Pulse Pulse Resp BP 05/16/25 11:07 85 16 100/69 05/16/25 08:35 81 05/16/25 07:42 97.8 F 76 14 92/59 05/16/25 05:38 05/16/25 05:36 96.2 F L 77 18 98/59 05/16/25 04:47 76 16 99/57 05/16/25 04:00 76 16 88/55 05/16/25 03:45 76 16 91/55 05/16/25 03:30 80 16 99/53 05/16/25 03:00 78 16 102/57 05/16/25 02:42 79 82 78 05/16/25 02:28 80 16 94/54 05/16/25 01:45 81 18 107/65 05/16/25 01:30 79 18 101/55 05/16/25 01:17 98.3 F 110 H 20 H 145/79 BP BP BP Pulse Ox O2 Del Method 05/16/25 11:07 96 Room Air 05/16/25 08:35 05/16/25 07:42 97 05/16/25 05:38 Room Air 05/16/25 05:36 97 Room Air 05/16/25 04:47 98 05/16/25 04:00 97 05/16/25 03:45 97 05/16/25 03:30 96 05/16/25 03:00 96 05/16/25 02:42 100/57 95/46 86/55 05/16/25 02:28 96 05/16/25 01:45 95 05/16/25 01:30 95 05/16/25 01:17 97 Intake & Output/Weight 05/14/25 05/15/25 05/16/25 05/17/25 06:59 06:59 06:59 06:59 Intake Total 999 351.667 / 351.667 Balance 999 351.667 / 351.667 Weight 77 kg Vitals Last Vital Signs Temp 97.8 F 05/16/25 07:42 Pulse 85 05/16/25 11:07 Resp 16 05/16/25 11:07 BP 100/69 05/16/25 11:07 Pulse Ox 96 05/16/25 11:07 O2 Del Method Room Air 05/16/25 11:07 TS Medications Medications Acetaminophen (Acetaminophen 325 Mg Tablet) 650 mg PO Q6H PRN PRN Reason: Mild/Mod Pain Or Temp >/= 101 Al Hydrox/Mg Hydrox/Simethicone (Nvam-Pwc-Tabmszgkd-Celeste 30 Ml Udc) 30 ml PO Q4H PRN PRN Reason: INDIGESTION Last Admin: 05/16/25 07:33 Dose: 30 ml Docusate Sodium (Docusate Sodium 100 Mg Capsule) 100 mg PO BID [facility] Heparin Sodium (Porcine) (Heparin 5,000 Unit/Ml Inj 1 Ml) 5,000 unit SUBCUT Q12H [facility] Last Admin: 05/16/25 06:36 Dose: 5,000 unit Ondansetron HCl (Ondansetron 2 Mg/Ml Sdv 2 Ml) 4 mg IVP Q8H PRN PRN Reason: vomiting, or N/V if npo Pantoprazole Sodium (Pantoprazole Dr 40 Mg Tablet) 40 mg PO DAILY JESICA Senna (Sennosides 8.6 Mg Tablet) 17.2 mg PO BEDTIME JESICA Discontinued Medications Sodium Chloride (Sodium Chloride 0.9%) 1,000 mls @ 999 mls/hr IV .Q1H1M ONE Stop: 05/16/25 03:34 Last Infusion: 05/16/25 03:41 Dose: Infused Sodium Chloride (Sodium Chloride 0.9%) 1,000 mls @ 100 mls/hr IV .Q10H [facility] Last Infusion: 05/16/25 07:41 Dose: 0 mls/hr Sodium Chloride (Sodium Chloride 0.9%) 1,000 mls @ 75 mls/hr IV .[id number] [facility] Last Admin: 05/16/25 07:41 Dose: 75 mls/hr Iohexol (Iohexol 350 Mg/Ml 500 Ml Btl (Per Ml)) 0 ml IV ONCE ONE Stop: 05/16/25 08:55 Last Admin: 05/16/25 08:54 Dose: 80 ml Iohexol (Iohexol 350 Mg/Ml 500 Ml Btl (Per Ml)) 0 ml IV ONCE ONE Stop: 05/16/25 10:36 Last Admin: 05/16/25 10:35 Dose: 100 ml Allergies Penicillins Allergy (Verified 03/25/25 09:29) UNKNOWN Home Medications inhalational spacing device (Aerochamber Plus Z Stat spacer) #50 ea 10/02/22 [Rx Confirmed 05/16/25] albuterol sulfate 90 mcg/actuation aerosol inhaler 2 puff inhalation Q6H PRN shortness of breath or wheezing #6.7 grams 10/13/24 [Rx Confirmed 05/16/25] rosuvastatin 20 mg tablet See Rx Instructions .Route .COMPLEX #90 tabs 02/16/25 [Rx Confirmed 05/16/25] atenolol 25 mg tablet See Rx Instructions .Route .COMPLEX #90 tabs 03/11/25 [Rx Confirmed 05/16/25] atenolol 50 mg tablet See Rx Instructions .Route .COMPLEX #90 tabs 03/11/25 [Rx Confirmed 05/16/25] levothyroxine 25 mcg tablet See Rx Instructions .Route .COMPLEX #90 tabs 03/11/25 [Rx Confirmed 05/16/25] metformin 500 mg tablet See Rx Instructions .Route .COMPLEX #90 tabs 03/25/25 [Rx Confirmed 05/16/25] budesonide-formoterol HFA 80 mcg-4.5 mcg/actuation aerosol inhaler (Breyna) See Rx Instructions .Route .COMPLEX #11 grams 04/27/25 [Rx Confirmed 05/16/25] ipratropium 0.5 mg-albuterol 3 mg (2.5 mg base)/3 mL nebulization soln See Rx Instructions .Route .COMPLEX 05/16/25 [History Confirmed 05/16/25] omega-3 fatty acids 1,000 mg capsule 1,000 mg PO TID 05/16/25 [History Confirmed 05/16/25] prednisone 5 mg tablet See Rx Instructions .Route .COMPLEX 05/16/25 [History Confirmed 05/16/25] Discharge Plan Discharge Patient Disposition: Xfer Short-Term Hosp Condition: Serious Prescriptions: Continued albuterol sulfate 90 mcg/actuation HFA aerosol inhaler 2 puff inhalation Q6H PRN (Reason: shortness of breath or wheezing) Qty: 6.7 2RF metformin 500 mg tablet See Rx Instructions .ROUTE .COMPLEX Qty: 90 0RF Dose Instruction: Take 1 tablet by mouth twice daily Rx Instructions: Take 1 tablet by mouth daily (DME) Aerochamber Plus Z Stat Spacer See Rx Instructions .Route Qty: 50 0RF Rx Instructions: As directed rosuvastatin 20 mg tablet See Rx Instructions .ROUTE .COMPLEX Qty: 90 0RF Dose Instruction: Take 1 tablet by mouth once daily Rx Instructions: Take 1 tablet by mouth once daily atenolol 50 mg tablet See Rx Instructions .ROUTE .COMPLEX Qty: 90 0RF Dose Instruction: Take 1 tablet by mouth once daily Rx Instructions: Take 1 tablet by mouth once at night. atenolol 25 mg tablet See Rx Instructions .ROUTE .COMPLEX Qty: 90 0RF Dose Instruction: Take 1 tablet by mouth once daily Rx Instructions: Take 1 tablet by mouth once daily in the morning. levothyroxine 25 mcg tablet See Rx Instructions .ROUTE .COMPLEX Qty: 90 0RF Dose Instruction: Take 1 tablet by mouth once daily Rx Instructions: Take 1 tablet by mouth once daily budesonide-formoterol [Breyna] 80-4.5 mcg/actuation HFA aerosol inhaler See Rx Instructions .ROUTE .COMPLEX Qty: 11 0RF Dose Instruction: Inhale 2 puffs by mouth twice daily Rx Instructions: Inhale 2 puffs by mouth twice daily ipratropium-albuterol 0.5 mg-3 mg(2.5 mg base)/3 mL solution for nebulization See Rx Instructions .ROUTE .COMPLEX Patient Comments: not picked up from pharmacy yet . Rx Instructions: Place 1 vial in nubulizer for inhalation every 6 hours as needed for shortness of breath prednisone 5 mg tablet See Rx Instructions .ROUTE .COMPLEX Patient Comments: not picked up yet , not started Rx Instructions: Take by mouth 10 tabs for 2day , 8 tabs for for 2 days , 6 tabs for 2 days , 4tabes 2 days , 2tabs 2 days and then 1 tab 2 days omega-3 fatty acids 1,000 mg Capsule 1,000 mg PO TID Referrals: Antonette Altman FNP [Primary Care Provider, [facility]] Discharge Activity: Bedrest Transfer Attestations Time Spent in Transfer Care: greater than 30 min Quality Metrics Clinical Quality Measures [ No reported AMI, CVA or VTE this stay] Coding Level of Care Code 61211 Diagnoses AAA (abdominal aortic aneurysm) I71.40 Aneurysm of right common iliac artery I72.3 Near syncope R55 Orthostatic hypotension I95.1 Renal insufficiency N28.9 Chronic obstructive pulmonary disease, unspecified COPD type J44.9 COPD type: unspecified COPD Tobacco abuse Z72.0 Type 2 diabetes mellitus without complication, with long-term current use of insulin E11.9 Hypertension, unspecified type I10 Hypertension type: unspecified Mixed hyperlipidemia E78.5 Hypothyroidism, unspecified type E03.9
[2025-05-16 11:22] LABS: Troponin 5 6HR 37.16 ng/L (0-15); Troponin 5 6HR Delta 3.16 ng/L (0-12)
--- NOTE | 2025-05-16 12:19 | PC.NURSE ---
Report called to [facility] ER, I spoke with Ling Ramírez RN. [facility] called and told to transport patient to [place].
--- NOTE | 2025-05-16 13:02 | PC.NURSE ---
patient had another episode right before leaving with [facility]. He stated he needed to sit up, and when he did he braydied down to 35. [facility] at bedside. Oxygen was applied and patient was told to lay back down by [employer] [facility] staff, even though he wanted to sit up. Patient recovered shortly and was able to fly with [employer] [facility]. Nurse attempted to call patient's friend Rajwinder but had to leave a message. Patient stated that we could give information to anyone that asked.
== END 2025-05-16 13:07 | disposition short-term general hospital (02) | DRG 300 ==
LOC: ER 04:11 → CSU 04:29
PROVIDERS: Admitting Provider Internal Medicine; Emergency Provider Emergency Medicine; PCP Nurse Practitioner Family; Visit Provider Student in an Organized Health Care Education/Training Program
DX: I71.40 Abdominal aortic aneurysm, without rupture, unspecified (principal); E87.20 Acidosis, unspecified; J98.11 Atelectasis; J90 Pleural effusion, not elsewhere classified; N17.9 Acute kidney failure, unspecified; I72.3 Aneurysm of iliac artery; I77.0 Arteriovenous fistula, acquired; I95.1 Orthostatic hypotension; J44.9 Chronic obstructive pulmonary disease, unspecified; F17.200 Nicotine dependence, unspecified, uncomplicated; E11.9 Type 2 diabetes mellitus without complications; I10 Essential (primary) hypertension; E78.2 Mixed hyperlipidemia; E03.9 Hypothyroidism, unspecified; I25.10 Atherosclerotic heart disease of native coronary artery without angina pectoris; R29.6 Repeated falls; Z79.84 Long term (current) use of oral hypoglycemic drugs; Z95.5 Presence of coronary angioplasty implant and graft
CPT/HCPCS: 36415; 36600; 71045; 71275; 74174; 76705; 80053; 82803; 83605; 83880; 84145; 84484; 85025; 85378; 93005; 93306; 96372; 99285; J1644; J7030; J9999

== ENCOUNTER → 2025-06-08 11:27 | Outpatient (BNVA) | payer MEDICARE, MEDICAID, SELFPAY | PROVIDERS: PCP Nurse Practitioner Family; Visit Provider Nurse Practitioner Family | DX: I10 Essential (primary) hypertension (principal); E11.9 Type 2 diabetes mellitus without complications; N28.9 Disorder of kidney and ureter, unspecified; R53.83 Other fatigue; Z79.4 Long term (current) use of insulin; Z79.899 Other long term (current) drug therapy | CPT/HCPCS: 80053; 81000; 83036; 83880; 85025; 87086 ==

== ENCOUNTER 2025-06-14 10:32 | Oncology outpatient (recurring) (ONCR) | payer MEDICARE, MEDICAID, SELFPAY | END 2025-07-04 23:59 | disposition home or self-care (01) | PROVIDERS: PCP Nurse Practitioner Family; Visit Provider Internal Medicine Medical Oncology | DX: D69.6 Thrombocytopenia, unspecified (principal); F17.200 Nicotine dependence, unspecified, uncomplicated | CPT/HCPCS: 99205 ==

== ENCOUNTER → 2025-06-24 15:27 | Outpatient (BNVA) | payer MEDICARE, MEDICAID, SELFPAY | PROVIDERS: PCP Nurse Practitioner Family; Visit Provider Nurse Practitioner Family | DX: N39.0 Urinary tract infection, site not specified (principal) | CPT/HCPCS: 81000; 87086 ==

== ENCOUNTER → 2025-07-06 10:34 | Outpatient (BNVA) | payer MEDICARE, MEDICAID, SELFPAY | PROVIDERS: PCP Nurse Practitioner Family; Visit Provider Nurse Practitioner Family | DX: E03.9 Hypothyroidism, unspecified (principal) | CPT/HCPCS: 80061; 84443 ==